=== PATIENT | male | born 1950 | race Caucasian/White ===

== ENCOUNTER → 2021-07-31 13:53 | Outpatient (BNVA) | payer MEDICARE, OTHER, SELFPAY | PROVIDERS: Family Provider Internal Medicine; PCP Internal Medicine; Visit Provider Urology | DX: R39.198 Other difficulties with micturition (principal); R97.20 Elevated prostate specific antigen [PSA]; F17.210 Nicotine dependence, cigarettes, uncomplicated | CPT/HCPCS: 81003; 84153 ==

== ENCOUNTER → 2021-08-24 12:15 | Outpatient (BNVA) | payer MEDICARE, OTHER, SELFPAY | PROVIDERS: Family Provider Internal Medicine; PCP Internal Medicine; Visit Provider Urology | DX: R97.20 Elevated prostate specific antigen [PSA] (principal) | CPT/HCPCS: 88305 ==

== ENCOUNTER → 2021-12-20 08:32 | Outpatient (BNVA) | payer MEDICARE, OTHER, SELFPAY | PROVIDERS: Family Provider Internal Medicine; PCP Internal Medicine; Visit Provider Urology | DX: R97.20 Elevated prostate specific antigen [PSA] (principal); N52.9 Male erectile dysfunction, unspecified | CPT/HCPCS: 81003; 84153 ==

== ENCOUNTER 2022-06-05 03:39 | Inpatient (IN) | payer MEDICARE, OTHER, SELFPAY ==
[2022-06-05] VITALS (8 sets, daily range): BP systolic 107–192; BP diastolic 61–89; PULSE 62–89; RESP 15–18; TEMP 36.4–36.9; O2SAT 95–98; BMI 26.4
--- NOTE | 2022-06-05 03:59 | XRR_ITS ---
PROCEDURE INFORMATION: Exam: XR Chest Exam date and time: 06/05/2022 4:04 AM Age: 72 years old Clinical indication: Patient HX: Epigastric pain x several months; Additional info: Abd pain TECHNIQUE: Imaging protocol: Radiologic exam of the chest. Views: 1 view. COMPARISON: No relevant prior studies available. FINDINGS: Lungs: The lung parenchyma is clear. Pleural spaces: No pneumothorax. No pleural effusion. Heart/Mediastinum: The cardiomediastinal silhouette is within normal limits. Bones/joints: Unremarkable. XR/XR chest 1V portable [id number] IMPRESSION: No acute cardiopulmonary abnormality.
--- NOTE | 2022-06-05 03:59 | USR_ITS ---
PROCEDURE INFORMATION: Exam: US Abdomen, Limited; Right Upper Quadrant Exam date and time: 06/05/2022 4:49 AM Age: 72 years old Clinical indication: Abdominal pain; Patient HX: Acute, sharp ruq pain x 3 months, ; additional info: Abd pain TECHNIQUE: Imaging protocol: Real time ultrasound of the abdomen with image documentation. Limited exam focused on the right upper quadrant. COMPARISON: RF FL barium enema w air* [id number] 10/25/2015 11:43 AM FINDINGS: Liver: Echogenic heterogenous parenchyma in the liver. No intrahepatic biliary dilatation. Gallbladder: Mobile echogenic, posterior acoustic shadowing gallstones measuring up to 1 cm noted. The gallbladder wall is thickened measuring up to 7 mm. Positive sonographic Leo sign. No significant pericholecystic fluid. Biliary ducts: The common bile duct is within normal limits measuring up to 6 mm in diameter. Pancreas: Partially visualized pancreas is unremarkable. Right kidney: Fluid density simple appearing cyst in the inferior pole the right kidney. Aorta: The aorta is nonaneurysmal. Portal venous: Normal hepatopetal flow in the portal vein. US/US gall bladder [id number] IMPRESSION: 1. Cholelithiasis with evidence of acute cholecystitis. 2. Hepatic steatosis.
--- NOTE | 2022-06-05 04:02 | ECG_ITS ---
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 Measurements Intervals [place] Rate: 81 P: 27 ND: 224 QRS: -25 QRSD: 99 T: 52 QT: 377 QTc: 440 Interpretive Statements SINUS RHYTHM WITH FIRST DEGREE AV BLOCK BORDERLINE LEFT AXIS DEVIATION [QRS AXIS < -20] LOW QRS VOLTAGE IN PRECORDIAL LEADS [QRS DEFLECTION < 1.0 mV IN CHEST LEADS] PATTERN CONSISTENT WITH PULMONARY DISEASE INCOMPLETE RIGHT BUNDLE BRANCH BLOCK [90+ ms QRS DURATION, TERMINAL R IN V1/V2, 40+ ms S IN I/aVL/V4/V5/V6] No previous ECG available for comparison Electronically Signed On 06-05-2022 14:11:20 CDT by Kenney Ambrocio M.D. [id number]
[2022-06-05 04:06] LABS: Basophils # 0.1 10^3/uL (0.0-0.1); Basophils % 0.6 %; Eosinophils # 0.1 10^3/uL (0.0-0.8); Eosinophils % 0.7 %; Hematocrit 48.5 % (42.0-52.0); Hemoglobin 16.3 g/dL (11.7-16.6); Lymphocytes # 1.8 10^3/uL (0.8-4.8); Lymphocytes % 20.2 %; Mean Corpuscular HGB Conc 33.6 g/dL (30.0-36.0); Mean Corpuscular Hemoglobin 31.5 pg (28.0-34.0); Mean Corpuscular Volume 93.8 fl (80-94); Mean Platelet Volume 10.1 fL (7.4-10.4); Monocytes # 0.5 10^3/uL (0.2-0.9); Monocytes % 5.8 %; Neutrophils # 6.29 10^3/uL (1.8-7.7); Neutrophils % 72.4 %; Nucleated Red Blood Cells % 0 %; Platelet Count 235 10^3/cmm (130-400); Red Blood Count 5.17 10^6/uL (4.1-5.3); White Blood Count 8.7 10^3/uL (4.0-10.0)
--- NOTE | 2022-06-05 04:13 | W.ED.ABDPA2 ---
HPI - Abdominal Pain General: Chief Complaint: Abdominal Pain Stated Complaint: upper abd pain Time Seen by Provider: 06/05/22 03:55 Source: patient Mode of arrival: ambulatory Limitations: no limitations History of Present Illness: 72-year-old male who states he has been having epigastric along with right upper quadrant pain he states for months with much worse since Friday. He states Friday night he had severe pain with vomiting states he ate tonight late start having some epigastric pain again he states it does radiate into his chest denies any fever he states that his pain has improved his pain is currently a 3 out of 10 denies any diarrhea. Associated Symptoms: Reports nausea and vomiting; Denies chills, dysuria and fever(s) Review of Systems Const: Denies: fever(s), chills, body aches or change in appetite Eyes: Denies: blurry vision or eye discomfort ENMT: Denies: throat pain or dental pain Card: Denies: chest pain Resp: Denies: dyspnea GI: Reports: abdominal pain, nausea and vomiting : Denies: dysuria Musc: Denies: neck pain or back pain Skin/Breast: Denies: rash Neuro: Denies: headache(s) Psych: Denies: depression Darius/Lymph: Denies: easy bruising All/Imm: Denies: urticaria PFSH ED PFSH: Medical History Elevated PSA Family History Mother Healthy adult Father , AT AGE 42 Automobile accident Social History Smoking and tobacco status: current every day smoker Alcohol intake: never Marital status: Current occupational status: retired History of recent travel: No Physical Exam Const: COMMON NORMALS: no acute distress, patient oriented x3 and healthy appearing HENMT: COMMON NORMALS: normocephalic and atraumatic HEAD & SCALP: normocephalic and atraumatic Eye: COMMON NORMALS: Equal, round and reactive pupils present and EOMs intact bilaterally PUPIL: Yes Equal, round and reactive pupils present Neck/C-Spine: COMMON NORMALS: full ROM and supple Chest: COMMONS NORMALS: normal inspection of the chest and normal palpation of entire chest wall Resp: COMMON NORMALS: normal respiratory effort, No retractions, No use of accessory muscles and clear to auscultation bilaterally AUSCULTATION: clear to auscultation bilaterally Cardio: COMMON NORMALS: regular rate, regular rhythm and No murmurs present (Cardio) RATE: regular rate RHYTHM: regular rhythm GI: COMMON NORMALS: Normal to inspection, nondistended, normoactive bowel sounds present, Soft to palpation and no masses PALPATION: Yes Soft to palpation and Yes Tenderness to palpation present (GI) Details: RUQ Extremity: COMMON NORMALS: normal to inspection and full ROM Neuro: COMMON NORMALS: patient oriented x3, moves all extremities and no focal motor deficits Psych: COMMON NORMALS: mental status grossly normal, Normal thought process present and cooperative THOUGHT PROCESS: Normal thought process present Skin: COMMON NORMALS: no rashes or lesions noted and no wounds GENERAL SKIN EXAM: no rashes or lesions noted Course Vital Signs: Vital signs: Vital Signs Temperature 97.9 F 06/05/22 03:46 Pulse Rate 89 06/05/22 03:46 Respiratory Rate 18 06/05/22 03:46 Blood Pressure 192/89 06/05/22 03:46 Pulse Oximetry 98 06/05/22 03:46 Oxygen Delivery Me thod 06/05/22 03:46 MDM - Abdominal Pain Medical Decision Making Patient presents here with right upper quadrant abdominal pain he is tender to touch ultrasound shows gallstones with likely cholecystitis I spoke to surgeon we will start on IV antibiotics and admit at this time patient has been stable while here. Lab Data : 06/05/22 04:00 06/05/22 04:00 Labs/Radiology: Radiology Impressions Chest X-Ray 06/05/22 03:59 IMPRESSION: No acute cardiopulmonary abnormality. Laboratory Results WBC 8.7 10^3/uL (4.0-10.0) 06/05/22 04:00 RBC 5.17 10^6/uL (4.1-5.3) 06/05/22 04:00 Hgb 16.3 g/dL (11.7-16.6) 06/05/22 04:00 Hct 48.5 % (42.0-52.0) 06/05/22 04:00 MCV 93.8 fl (80-94) 06/05/22 04:00 MCH 31.5 pg (28.0-34.0) 06/05/22 04:00 MCHC 33.6 g/dL (30.0-36.0) 06/05/22 04:00 RDW 12.0 % (12.1-15.1) L 06/05/22 04:00 Plt Count 235 10^3/cmm (130-400) 06/05/22 04:00 MPV 10.1 fL (7.4-10.4) 06/05/22 04:00 Neut % (Auto) 72.4 % 06/05/22 04:00 Lymph % (Auto) 20.2 % 06/05/22 04:00 Orange % (Auto) 5.8 % 06/05/22 04:00 Eos % (Auto) 0.7 % 06/05/22 04:00 Baso % (Auto) 0.6 % 06/05/22 04:00 Neut # (Auto) 6.29 10^3/uL (1.8-7.7) 06/05/22 04:00 Lymph # (Auto) 1.8 10^3/uL (0.8-4.8) 06/05/22 04:00 [place] # (Auto) 0.5 10^3/uL (0.2-0.9) 06/05/22 04:00 Eos # (Auto) 0.1 10^3/uL (0.0-0.8) 06/05/22 04:00 Baso # (Auto) 0.1 10^3/uL (0.0-0.1) 06/05/22 04:00 Nucleated RBC % (auto) 0 % 06/05/22 04:00 Nucleated RBCs # 0.0 /100WBC 06/05/22 04:00 Sodium 141 mmol/L (136-145) 06/05/22 04:00 Potassium 3.8 mmol/L (3.5-5.1) 06/05/22 04:00 Chloride 101 mmol/L (98-107) 06/05/22 04:00 Carbon Dioxide 27 mmol/L (22-29) 06/05/22 04:00 Anion Gap 16.8 (5-19) 06/05/22 04:00 BUN 9 mg/dL (8-23) 06/05/22 04:00 Creatinine 1.1 mg/dL (0.7-1.2) 06/05/22 04:00 GFR Calculation Not Reportable 06/05/22 04:00 Glucose 129 mg/dL (65-115) H 06/05/22 04:00 Calculated Osmolality 292 mOsm/kg (285-295) 06/05/22 04:00 Calcium 9.4 mg/dL (8.5-10.5) 06/05/22 04:00 Total Bilirubin 0.5 mg/dL (0.15-1.2) 06/05/22 04:00 AST 21 U/L (0-40) 06/05/22 04:00 ALT 19 U/L (0-41) 06/05/22 04:00 Alkaline Phosphatase 77 U/L (40-130) 06/05/22 04:00 Troponin T Baseline 16 ng/L (0-15) H 06/05/22 04:10 Total Protein 7.6 g/dL (6.6-8.7) 06/05/22 04:00 Albumin 4.6 g/dL (3.5-5.2) 06/05/22 04:00 Globulin 3.0 g/dL (1.3-4.6) 06/05/22 04:00 Lipase 93 U/L (13-60) H 06/05/22 04:00 EKG Data EKG 1: I personally reviewed and interpreted this EKG as follows: EKG interpretation date: 06/05/22 EKG interpretation time: 04:02 Interpretation: nsr hr [address] or t wve abnormalities qrs 99q tc 415 Discharge Plan Discharge Patient Disposition: Admitted As Inpatient Clinical Impression: Cholecystitis Condition: Stable Coding Level of Care Code ED Tool Machine Set Up Operator for Chg Fwd Exam Comprehensive
[2022-06-05] MEDS: lactated ringers 1,000 ML 999 ML IV (04:16)
[2022-06-05] MEDS: ondansetron 2 mg/ML SDV 2 mL 4 MG IVP ×2 (04:16→10:27)
[2022-06-05] MEDS: lidocaine 2% viscous 15 ML, aluminum-mag hydrox-simethicon 30 ML, sucralfate oral liq 1 GM PO (04:16)
[2022-06-05 04:28] LABS: Alanine Aminotransferase 19 U/L (0-41); Albumin Level 4.6 g/dL (3.5-5.2); Alkaline Phosphatase 77 U/L (40-130); Anion Gap 16.8 (5-19); Aspartate Amino Transferase 21 U/L (0-40); Blood Urea Nitrogen 9 mg/dL (8-23); Calcium 9.4 mg/dL (8.5-10.5); Carbon Dioxide 27 mmol/L (22-29); Chloride 101 mmol/L (98-107); Glucose 129 mg/dL (65-115); Lipase 93 U/L (13-60); Osmolality Calculated 292 mOsm/kg (285-295); Potassium 3.8 mmol/L (3.5-5.1); Sodium 141 mmol/L (136-145); Total Bilirubin 0.5 mg/dL (0.15-1.2); Total Protein 7.6 g/dL (6.6-8.7)
[2022-06-05 04:49] LABS: Troponin(5th) Baseline 16 ng/L (0-15)
--- NOTE | 2022-06-05 05:38 | ECG_ITS ---
[facility] Test Date: 2022-06-05 Pat Name: Maxwell Morris Department: Room: 266 Gender: Male Office Secretary: : 1950 Requested By: Maureen Toney Order Number: [id number] Demetrius MD: Kenney Ambrocio M.D. Measurements Intervals [place] Rate: 77 P: 41 SD: 219 QRS: -31 QRSD: 100 T: 40 QT: 392 QTc: 446 Interpretive Statements SINUS RHYTHM WITH FIRST DEGREE AV BLOCK LEFT AXIS DEVIATION [QRS AXIS < -30] LOW QRS VOLTAGE IN PRECORDIAL LEADS [QRS DEFLECTION < 1.0 mV IN CHEST LEADS] PATTERN CONSISTENT WITH PULMONARY DISEASE INCOMPLETE RIGHT BUNDLE BRANCH BLOCK [90+ ms QRS DURATION, TERMINAL R IN V1/V2, 40+ ms S IN I/aVL/V4/V5/V6] Compared to ECG 06/05/2022 04:02:33 No significant changes Electronically Signed On 06-05-2022 14:12:44 CDT by Kenney Ambrocio M.D. [id number]
[2022-06-05] MEDS: piperacillin-tazobactam 3.375 GM in sodium chloride 0.9% (plus) 50 ML IV (06:09)
[2022-06-05 06:11] LABS: Troponin 5 2HR 12.41 ng/L (0-15)
[2022-06-05 06:21] LABS: Troponin 5 2HR Delta -3.59 ABS# (0-10)
[2022-06-05] MEDS: sodium chloride 0.9% 1,000 ML 100 ML IV ×2 (06:33→16:54)
[2022-06-05] MEDS: pneumococcal (23 valent) SDV 0.5 mL IM (06:34)
--- NOTE | 2022-06-05 08:28 | PM.HP ---
Providers/Chief Complaint Admitting Physician: Franco Vazquez MD Primary Care Provider: Lázaro Hutchison DO Chief Complaint: upper abd pain History of Present Illness Maxwell Morris is a 72 year old male who presented to the hospital with a 3-day history of acute epigastric and right upper quadrant abdominal pain. He reports that this is his fourth attack in the last 3 months. He reports nausea and vomiting but denies hematemesis. Eating can make the pain worse. Narcotics seem to make the pain better. The pain does not radiate to his back. He denies any fever or chills. An ultrasound of the gallbladder is consistent with acute cholecystitis Review of Systems General: Reports: 10 or more systems reviewed and unremarkable except in HPI and below Medications/Allergies Home Medications Medication Instructions Recorded Confirmed Last Taken Type cholecalciferol (vitamin D3) 50 50 mcg PO DAILY PRN unknown 07/16/21 06/05/22 Unknown History mcg (2,000 unit) capsule tamsulosin 0.4 mg capsule 0.4 mg PO BEDTIME 07/16/21 06/05/22 Unknown History aspirin 325 mg tablet 81 mg PO QAM 07/31/21 06/05/22 Unknown History multivitamin 1 tab PO QAM 07/31/21 06/05/22 Unknown History tadalafil 20 mg tablet 20 mg PO DAILY PRN sexual activity 12/20/21 06/05/22 Unknown Rx #20 tabs baclofen 5 mg tablet 5 - 10 mg PO BID PRN Muscle Pain 06/05/22 06/05/22 Unknown History zinc 50 mg tablet 50 mg PO EVERY OTHER DAY 06/05/22 06/05/22 Unknown History Allergies Allergy/AdvReac Type Severity Reaction Status Date / Time No Known Allergies Allergy Verified 06/05/22 09:22 PFSH Acute PFSH: Medical History (Updated 06/05/22 @ 22:18 by Raymundo Cheng DO) Elevated PSA Skin lesion LOCAL EXCISION Surgical History (Updated 06/05/22 @ 22:18 by Raymundo Cheng DO) Status post carotid surgery 2 STENTS AT [facility] IN 10/2010 Family History Mother Healthy adult Father , AT AGE 42 Automobile accident Social History Smoking and tobacco status: current every day smoker Alcohol intake: never Marital status: Current occupational status: retired History of recent travel: No Vitals/I&O/Wt Last Vital Signs Temp 98.2 F 06/05/22 20:00 Pulse 69 06/05/22 20:00 Resp 17 06/05/22 20:00 BP 107/61 06/05/22 20:00 Pulse Ox 95 06/05/22 20:00 O2 Del Method 06/05/22 20:00 06/05/22 06/05/22 06/05/22 06:59 14:59 22:59 Intake Total 1050 / 1050 480 / 480 1480 / 1960 Balance 1050 / 1050 480 / 480 1480 / 1960 Weight last 48 hrs Weight 200 lb Physical Exam Narrative: General : Patient is well developed , no acute distress, oriented x3 Head : Normal cephalic, a-traumatic. Ears : Pinnae and external canal are normal. Hearing is normal. Eyes : PERRLA, Sclera and injection are normal. No conjunctival discharge. Nose : Mucous membranes are without erythema. Throat : buccal mucosa is normal, gums are without significant recession or hypertrophy. Lungs : Equal chest rise bilaterally, no use of accessory muscles, trachea is midline. Cor : Rate and rhythm are normal. Abdomen : Soft, ND, mild epigastric and RUQ tenderness, negative Leo's, no g/r/m Extremities : No edema, no cyanosis or clubbing, dorsalis pedis pulses are present bilaterally, non-tender to palpation of calves. Upper extremities are normal bilaterally. Back : non-tender to palpation, no CVA tenderness. Neuro : CN II - XII intact, Upper and lower extremities have equal and full strength Data : 06/05/22 04:00 06/05/22 04:00 A&P Assessment and plan (1) Acute calculous cholecystitis: Plan IV antibiotics Clear liquid diet N.p.o. after midnight Pain control A.m. labs Due to the acute on chronic nature of his cholecystitis, I am going to try antibiotic therapy and outpatient cholecystectomy in 6 weeks. If his symptoms worsen he will need cholecystectomy tomorrow. Attestations Medical Necessity Statement*: patient requires IV antibitiocs and repeat assessment for possible cholecystectomy Coding Level of Care Code Acute Print Line Supervisor for [facility] [place] Diagnoses Acute calculous cholecystitis K80.00
[2022-06-05] MEDS: morphine 4 mg/mL SDV 1 mL IVP (10:18)
[2022-06-05 11:04] LABS: Troponin 5 6HR 14.01 ng/L (0-15)
[2022-06-05 12:04] LABS: Troponin 5 6HR Delta -1.99 ng/L (0-12)
[2022-06-06] MEDS: piperacillin-tazobactam 3.375 GM in sodium chloride 0.9% (plus) 50 ML IV ×2 (01:21→09:41)
[2022-06-06] MEDS: sodium chloride 0.9% 1,000 ML 125 ML IV (03:00)
[2022-06-06 04:00] VITALS: BP 101/54; PULSE 65; RESP 17; TEMP 36.6; O2SAT 93
[2022-06-06 04:59] LABS: Basophils % 0.5 %; Eosinophils # 0.1 10^3/uL (0.0-0.8); Eosinophils % 2.2 %; Hematocrit 40.5 % (42.0-52.0); Hemoglobin 13.2 g/dL (11.7-16.6); Lymphocytes % 32.7 %; Mean Corpuscular HGB Conc 32.6 g/dL (30.0-36.0); Mean Corpuscular Hemoglobin 31.5 pg (28.0-34.0); Mean Corpuscular Volume 96.7 fl (80-94); Monocytes # 0.5 10^3/uL (0.2-0.9); Monocytes % 8.3 %; Neutrophils # 3.35 10^3/uL (1.8-7.7); Neutrophils % 55.8 %; Nucleated Red Blood Cells % 0 %; Platelet Count 179 10^3/cmm (130-400); Red Blood Count 4.19 10^6/uL (4.1-5.3); Red Cell Distribution Width 12.4 % (12.1-15.1)
[2022-06-06 05:24] LABS: Alanine Aminotransferase 17 U/L (0-41); Albumin Level 3.4 g/dL (3.5-5.2); Alkaline Phosphatase 60 U/L (40-130); Aspartate Amino Transferase 16 U/L (0-40); Blood Urea Nitrogen 7 mg/dL (8-23); Calcium 8.4 mg/dL (8.5-10.5); Carbon Dioxide 27 mmol/L (22-29); Chloride 104 mmol/L (98-107); Globulin 2.1 g/dL (1.3-4.6); Glucose 95 mg/dL (65-115); Osmolality Calculated 286 mOsm/kg (285-295); Sodium 139 mmol/L (136-145); Total Bilirubin 0.8 mg/dL (0.15-1.2); Total Protein 5.5 g/dL (6.6-8.7)
[2022-06-06 08:00] VITALS: BP 102/53; PULSE 65; RESP 16; TEMP 36.5; O2SAT 95
--- NOTE | 2022-06-06 10:40 | PC.CHAP ---
Pastoral Care Encounter/Spiritual Assessment Type of Contact [] Declined barrel marker visit [] Patient/Family/Request visit [] Outpatient visit [] Follow-up visit [] Physician referral [] Code/Alert [x] Routine visit [] Staff referral [] Actively dying [] Patient sleeping [] Family support [] [] Out of room [] Palliative care [] [x] Receiving care in room [] Pre-surgical visit [] Trauma [] Long length of stay [] ICU visit [] Other: Relational/Emotional Strength [x] Patient feels connected with others/family/visitors/staff [] Distress [] Loneliness/isolation [] Abandonment Spirituality of Patient [x] Person of Salma [] Attends Jew of their Salma [x] Believes in Prayer [] Reads Bible or Scientologist materials [] There are Spiritual issues to be addressed Gm/[employer] Interventions [x] Prayer [x] Active listening [x] Non-anxious presence [x] Spiritual/emotional support [] Crisis/trauma care [x] Spiritual counseling [] Bereavement support [] Provided bereavement packet [] Provided Bible/devotional materials [] Provided toy/stuffed animal, coloring book to patient or family member [] Provided Communion [] Anointing/Shanks [] Salvation [x] Completed spiritual assessment [] Other: Impact on Illness or Injury [] Angry [] Fearful [x] Anxious [] Often cries [] Exhaustion [] Unable to work [] Unable to attend scientologist [] Unable to walk/stand [] Unable to read [] Unable to drive [] Unable to eat/drink [] Unable to sleep [] Unable to be with family [] Patient intubated [] Other: Summary 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 Time spent with patient 10 mins
[2022-06-06 11:38] VITALS: BP 109/46; PULSE 58; RESP 16; TEMP 36.6; O2SAT 94
--- NOTE | 2022-06-06 13:06 | P.DS_ITS ---
Discharge Providers Date of Admission: 06/05/22 20:42 Date of Discharge: June 06, 2022 Attending Provider at Admission: Franco Vazquez MD Attending Provider at Discharge: Raymundo Cheng DO Primary Care Provider: Lázaro Hutchison DO Diagnoses at Discharge Discharge Diagnosis (1) Acute calculous cholecystitis: Status: Acute Reason for Visit Reason for Visit: upper abd pain Hospital Course Hospital Course This is a very pleasant 72-year-old gentleman who came in with epigastric and right upper quadrant pain. He was diagnosed with acute on chronic calculus cholecystitis. He responded well to antibiotic therapy and was tolerating a diet without pain. He was discharged home on antibiotics. He will complete a course of antibiotics and undergo an outpatient cholecystectomy in 6 weeks. Physical Exam Narrative: General : Patient is well developed , no acute distress, oriented x3 Head : Normal cephalic, a-traumatic. Ears : Pinnae and external canal are normal. Hearing is normal. Eyes : PERRLA, Sclera and injection are normal. No conjunctival discharge. Nose : Mucous membranes are without erythema. Throat : buccal mucosa is normal, gums are without significant recession or hypertrophy. Lungs : Equal chest rise bilaterally, no use of accessory muscles, trachea is midline. Cor : Rate and rhythm are normal. Abdomen : Soft, ND, mild right upper quadrant tenderness, no g/r/m Extremities : No edema, no cyanosis or clubbing, dorsalis pedis pulses are present bilaterally, non-tender to palpation of calves. Upper extremities are normal bilaterally. Back : non-tender to palpation, no CVA tenderness. Neuro : CN II - XII intact, Upper and lower extremities have equal and full strength Discharge Data Studies Completed and Pending Completed Studies During Hospitalization Category Date Time Status XR chest 1V portable [id number] Stat Exams 06/05/22 03:59 Completed US gall bladder [id number] Stat Ultrasound 06/05/22 03:59 Completed Pending at discharge Category Date Time Status CBC Auto Diff [Complete Blood Count w/Auto] AM LABS Lab 06/07/22 04:00 Ordered CMP [Comprehensive Metabolic Panel] AM LABS Lab 06/07/22 04:00 Ordered Radiology Impressions Chest X-Ray 06/05/22 03:59 IMPRESSION: No acute cardiopulmonary abnormality. Gallbladder Ultrasound 06/05/22 03:59 IMPRESSION: 1. Cholelithiasis with evidence of acute cholecystitis. 2. Hepatic steatosis. Laboratory Results WBC 6.0 10^3/uL (4.0-10.0) 06/06/22 04:46 RBC 4.19 10^6/uL (4.1-5.3) 06/06/22 04:46 Hgb 13.2 g/dL (11.7-16.6) 06/06/22 04:46 Hct 40.5 % (42.0-52.0) L 06/06/22 04:46 MCV 96.7 fl (80-94) H 06/06/22 04:46 MCH 31.5 pg (28.0-34.0) 06/06/22 04:46 MCHC 32.6 g/dL (30.0-36.0) 06/06/22 04:46 RDW 12.4 % (12.1-15.1) 06/06/22 04:46 Plt Count 179 10^3/cmm (130-400) 06/06/22 04:46 MPV 10.0 fL (7.4-10.4) 06/06/22 04:46 Neut % (Auto) 55.8 % 06/06/22 04:46 Lymph % (Auto) 32.7 % 06/06/22 04:46 [place] % (Auto) 8.3 % 06/06/22 04:46 Eos % (Auto) 2.2 % 06/06/22 04:46 Baso % (Auto) 0.5 % 06/06/22 04:46 Neut # (Auto) 3.35 10^3/uL (1.8-7.7) 06/06/22 04:46 Lymph # (Auto) 2.0 10^3/uL (0.8-4.8) 06/06/22 04:46 [place] # (Auto) 0.5 10^3/uL (0.2-0.9) 06/06/22 04:46 Eos # (Auto) 0.1 10^3/uL (0.0-0.8) 06/06/22 04:46 Baso # (Auto) 0.0 10^3/uL (0.0-0.1) 06/06/22 04:46 Nucleated RBC % (auto) 0 % 06/06/22 04:46 Nucleated RBCs # 0.0 /100WBC 06/06/22 04:46 Sodium 139 mmol/L (136-145) 06/06/22 04:46 Potassium 4.0 mmol/L (3.5-5.1) 06/06/22 04:46 Chloride 104 mmol/L (98-107) 06/06/22 04:46 Carbon Dioxide 27 mmol/L (22-29) 06/06/22 04:46 Anion Gap 12.0 (5-19) 06/06/22 04:46 BUN 7 mg/dL (8-23) L 06/06/22 04:46 Creatinine 1.1 mg/dL (0.7-1.2) 06/06/22 04:46 GFR Calculation Not Reportable 06/06/22 04:46 Glucose 95 mg/dL (65-115) 06/06/22 04:46 Calculated Osmolality 286 mOsm/kg (285-295) 06/06/22 04:46 Calcium 8.4 mg/dL (8.5-10.5) L 06/06/22 04:46 Total Bilirubin 0.8 mg/dL (0.15-1.2) 06/06/22 04:46 AST 16 U/L (0-40) 06/06/22 04:46 ALT 17 U/L (0-41) 06/06/22 04:46 Alkaline Phosphatase 60 U/L (40-130) 06/06/22 04:46 Troponin T Baseline 16 ng/L (0-15) H 06/05/22 04:10 Troponin T 120 Minute 12.41 ng/L (0-15) 06/05/22 05:50 Delta Troponin T -3.59 ABS# (0-10) L 06/05/22 05:50 Troponin T Hi Sens 6Hr 14.01 ng/L (0-15) 06/05/22 10:12 Troponin T Hi Sens 6Hr Delta -1.99 ng/L (0-12) L 06/05/22 10:12 Total Protein 5.5 g/dL (6.6-8.7) L 06/06/22 04:46 Albumin 3.4 g/dL (3.5-5.2) L 06/06/22 04:46 Globulin 2.1 g/dL (1.3-4.6) 06/06/22 04:46 Lipase 93 U/L (13-60) H 06/05/22 04:00 Vitals Last Vital Signs Temp 97.8 F 06/06/22 11:38 Pulse 58 L 06/06/22 11:38 Resp 16 06/06/22 11:38 BP 109/46 06/06/22 11:38 Pulse Ox 94 06/06/22 11:38 O2 Del Method 06/06/22 11:38 Discharge Plan Discharge Patient Disposition: Home Condition: Stable Prescriptions: New amoxicillin-pot clavulanate 875-125 mg tablet 1 tab PO BID 13 Days Qty: 26 0RF hydrocodone-acetaminophen 7.5-325 mg tablet 1 tab PO Q8H PRN (Reason: pain) Qty: 10 0RF Continued tamsulosin 0.4 mg capsule 0.4 mg PO BEDTIME cholecalciferol (vitamin D3) 50 mcg (2,000 unit) capsule 50 mcg PO DAILY PRN (Reason: unknown) multivitamin Tablet 1 tab PO QAM tadalafil 20 mg tablet 20 mg PO DAILY PRN (Reason: sexual activity) Qty: 20 12RF Rx Instructions: administer approximately 30min before sexual activity; NO NITROGLYCERIN! zinc 50 mg Tablet 50 mg PO EVERY OTHER DAY baclofen 5 mg tablet 5 - 10 mg PO BID PRN (Reason: Muscle Pain) Held aspirin 325 mg tablet 81 mg PO QAM Hold Instructions: Resume on 06/09/22. Discharge Orders: Discharge Order (Routine); Ordered 06/06/22 Ordered By: Raymundo Cheng Referrals: Raymundo Cheng DO [Physician] - 2 weeks Lázaro Hutchison DO [Primary Care Provider] - 4-7 days Discharge Diet: Advance as tolerated Discharge Activity: Resume usual activity Patient Instructions: Opioid Safety Discharge Attestations Time Spent in Discharge Care*: less than 30 min Quality Metrics Clinical Quality Measures [ No reported AMI, CVA or VTE this stay] Coding Level of Care Code Acute Chg FW DC note Diagnoses Acute calculous cholecystitis K80.00
[2022-06-06 14:51] VITALS: BP 109/46; PULSE 58; RESP 16; TEMP 36.6; O2SAT 94
== END 2022-06-06 14:45 | disposition home or self-care (01) | DRG 446 ==
LOC: ER 05:27 → MEDSURG 05:39
PROVIDERS: Admitting Provider Internal Medicine; Emergency Provider Emergency Medicine; PCP Internal Medicine; Visit Provider Surgery
DX: K80.12 Calculus of gallbladder with acute and chronic cholecystitis without obstruction (principal); F17.200 Nicotine dependence, unspecified, uncomplicated; Z95.828 Presence of other vascular implants and grafts; Z79.82 Long term (current) use of aspirin
CPT/HCPCS: 36415; 71045; 76705; 80053; 83690; 84484; 85025; 90471; 90732; 93005; 96365; 96375; 99285; J2270; J2405; J2543; J7030

== ENCOUNTER → 2022-06-18 10:30 | Outpatient (BNVA) | payer MEDICARE, OTHER, SELFPAY | PROVIDERS: PCP Internal Medicine; Visit Provider Surgery | DX: Z09 Encounter for follow-up examination after completed treatment for conditions other than malignant neoplasm (principal); K80.00 Calculus of gallbladder with acute cholecystitis without obstruction | CPT/HCPCS: 99203 ==

== ENCOUNTER → 2022-06-20 14:11 | Outpatient (BNVA) | payer MEDICARE, OTHER, SELFPAY | PROVIDERS: PCP Internal Medicine; Visit Provider Urology | DX: R97.20 Elevated prostate specific antigen [PSA] (principal); R39.198 Other difficulties with micturition; N53.14 Retrograde ejaculation | CPT/HCPCS: 81003; 99213 ==

== ENCOUNTER 2022-07-18 06:15 | Day surgery (SDC) | payer MEDICARE, OTHER, SELFPAY ==
[2022-07-17 12:35] VITALS: BMI 25.7
[2022-07-18] VITALS (8 sets, daily range): BP systolic 134–165; BP diastolic 61–76; PULSE 77–88; RESP 15–21; TEMP 36.3–36.7; O2SAT 95–100
[2022-07-18] MEDS: sodium chloride 0.9% 1,000 ML 30 ML IV (06:54)
--- NOTE | 2022-07-18 07:02 | W.PM.OPSUD ---
Surgery/Procedure H&P Update DATE OF PROCEDURE: July 18, 2022 DATE H&P PERFORMED: 06/10/22 PREOP DIAGNOSIS: Cholecystitis PLANNED PROCEDURE: Operation Date: 07/18/22 07:00 Proposed Procedures p Laparoscopic Cholecystectomy 19142,K80.00(Not Applicable) - Raymundo Cheng DO
[2022-07-18] MEDS: ceFAZolin 2,000 MG in sodium chloride 0.9% (plus) 50 ML 100 MG IV (07:08)
--- NOTE | 2022-07-18 08:08 | P.OP_ITS ---
Operative Report Date of procedure: July 18, 2022 Pre-op diagnosis: Preop Diagnosis Cholecystitis Post-op diagnosis: same Procedure done: Laparoscopic cholecystectomy Specimens removed/disposition: Gallbladder Surgeon: Dr. Raymundo Cheng DO Anesthesia: General Estimated blood loss (mL): 5 Complications: None apparent Brief History: This is a very pleasant 72-year-old gentleman who came in with cholecystitis. Laparoscopic cholecystectomy was indicated. The risks and benefits were explained and documented. Procedure: Patient was wheeled into the operative room and placed on the OR table in a supine position. Abdomen was inspected prepped and draped in usual sterile fashion. Time-out was performed and all present were in agreement. A 15 blade scalp was used to make a stab incision in the left upper quadrant and intra- abdominal insufflation was achieved using a Veress needle. After localizing the tissue incisions were made and a 5 millimeter trocar was placed into the umbilicus as well as 2 in the right upper quadrant. A 12 millimeter trocar was placed in the epigastrium. Gallbladder was grasped and elevated. The triangle of Calot was carefully dissected using blunt dissection and electrocautery until the triangle of Calot clearly identified. The cystic duct was clipped proximally and double clipped distally. The duct was then ligated proximally. The cystic artery was doubly clipped and ligated. The gallbladder was then removed from the liver bed using electrocautery. The gallbladder was removed from the abdomen using an Endo-Catch bag through the epigastric incision. The liver bed was inspected and no bleeding was seen. The abdomen was irrigated and suctioned. All ports removed. Skin was washed and dried. Incisions were closed with 3-0 and 4-O Vicryl in a subcuticular interrupted fashion. Skin glue was applied. Patient tolerated the procedure well.
--- NOTE | 2022-07-18 08:19 | SUR.PHASEI ---
0812 PT TO PACU 5 AWAKES TO VOICE, WITH GOOD RESP NOTED, IV TO LT WRIST #20 WITH NS 300ML UP AT KVO RATE PER GRAVITY, MONITOR SR WITH NO ECTOPY NOTED, ABDOMEN SOFT WITH 4 TROCHAR SITES WITH SKIN GLUE D/I , BILAT SCDS ON. PT VERBALLY DENIES PAIN AND NAUSEA THEN QUICKLY BACK TO SLEEP.
--- NOTE | 2022-07-18 08:33 | SUR.PHASEI ---
PT SLEEPING WITH HOB AT 40 DEGREES , NO DISTRESS NOTED, ABDOMEN UNCHANGED.
--- NOTE | 2022-07-18 08:40 | P.ANESASSM_ITS ---
Pre-Anesthetic Assessment Height/Weight: Height 1.85 m Weight 88.451 kg Temp Pulse Resp BP Pulse Ox O2 Del Method O2 Flow Rate 97.3 F L 77 16 134/71 95 8 07/18/22 08:35 07/18/22 08:35 07/18/22 08:35 07/18/22 08:35 07/18/22 08:35 07/18/22 08:35 07/18/22 08:20 Preop Diagnosis: Cholecystitis Operation Date: 07/18/22 07:00 Proposed Procedures p Laparoscopic Cholecystectomy 68346,K80.00(Not Applicable) - Raymundo Cheng DO Familial anesthetic complications: none Was Beta Deana taken within 24 hours: N/A Was Clonidine taken within 24 hours: N/A Last intake: Intake Last Liquid Date 07/17/22 Last Liquid Time 23:55 Last Solid Date 07/17/22 Last Solid Time 20:00 Social Tobacco and No alcohol Exam alert, oriented x 3 and regular rate & rhythm Airway Submandibular: within normal limits Cervical ROM: within normal limits Mallampati: Class II Dentition: chipped Pulmonary Chronic Obstructive Pulmonary Disease CV/HEM Coronary Artery Disease (stents) Anesthetic Plan ASA status: 2 Anesthesia: General Medications/Allergies Home Medications Medication Instructions Recorded Confirmed Last Taken Type cholecalciferol (vitamin D3) 50 50 mcg PO DAILY 07/16/21 07/18/22 Unknown History mcg (2,000 unit) capsule aspirin 325 mg tablet 81 mg PO QAM 07/31/21 07/18/22 07/17/22 History multivitamin 1 tab PO QAM 07/31/21 07/18/22 07/17/22 History baclofen 5 mg tablet 5 - 10 mg PO BID PRN Muscle Pain 06/05/22 07/18/22 Unknown History zinc 50 mg tablet 50 mg PO EVERY OTHER DAY 06/05/22 07/17/22 Unknown History hydrocodone 7.5 mg-acetaminophen 1 tab PO Q8H PRN pain #10 tabs 06/06/22 07/17/22 Unknown Rx 325 mg tablet alfuzosin 10 mg tablet,extended 10 mg PO DAILY 07/17/22 07/18/22 07/17/22 History release 24 hr tadalafil 20 mg tablet (Cialis) 20 mg PO DAILY PRN sexual activity 07/17/22 07/17/22 Unknown History Allergies Allergy/AdvReac Type Severity Reaction Status Date / Time No Known Allergies Allergy Verified 07/17/22 12:32 Current Medications Generic Name Dose Route Start Last Admin Trade Name Giovanni PRN Reason Stop Dose Admin Sodium Chloride 1,000 mls @ 30 mls/hr 07/18/22 06:30 07/18/22 06:54 Sodium Chloride 0.9% IV 07/19/22 06:29 30 mls/hr .Q24H ROHITH Administration PFSH Anesthesia Medical History Elevated PSA Skin lesion LOCAL EXCISION Surgical History Status post carotid surgery 2 STENTS AT [facility] IN 10/2010 Family History Mother Healthy adult Father , AT AGE 42 Automobile accident Social History Smoking and tobacco status: current every day smoker Alcohol intake: never Marital status: Current occupational status: retired History of recent travel: No Data Anesthesia Cardiac Studies: No Data to Display
[2022-07-18] MEDS: HYDROcodone-acetaminophen 7.5-325 mg Tablet 1 TAB PO (09:06)
--- NOTE | 2022-07-18 15:37 | ANE.PACU2 ---
Inpatient post-anesthesia follow up: Airway intact: Yes Vital signs: Temperature 97.3 F Pulse Rate 84 Respiratory Rate 18 Blood Pressure 134/61 Pulse Oximetry 95 Oxygen Delivery Me thod Room Air Oxygen Flow Rate 8 Fraction of Inspir ed Oxygen Hydration adequate: Yes Nausea and vomiting: No Pain level: 2 Mental status: Baseline
== END 2022-07-18 09:20 | disposition home or self-care (01) ==
PROVIDERS: PCP Internal Medicine; Visit Provider Surgery
PROC: 0FT44ZZ Resection of Gallbladder, Percutaneous Endoscopic Approach (ICD-10-PCS; CPT 47562; principal; 2022-07-18 07:00)
DX: K80.10 Calculus of gallbladder with chronic cholecystitis without obstruction (principal); J44.9 Chronic obstructive pulmonary disease, unspecified; I25.10 Atherosclerotic heart disease of native coronary artery without angina pectoris; Z95.5 Presence of coronary angioplasty implant and graft; Z79.82 Long term (current) use of aspirin; F17.210 Nicotine dependence, cigarettes, uncomplicated
CPT/HCPCS: 47562; 88304; J0690; J2370; J2704; J2710; J3010; J7030

== ENCOUNTER → 2022-07-30 11:09 | Outpatient (BNVA) | payer MEDICARE, OTHER, SELFPAY | PROVIDERS: PCP Internal Medicine; Visit Provider Surgery | DX: Z98.890 Other specified postprocedural states (principal); Z90.49 Acquired absence of other specified parts of digestive tract | CPT/HCPCS: 99024 ==

== ENCOUNTER 2022-12-23 09:43 | Outpatient (CLI) | payer MEDICARE, SELFPAY | END 2022-12-23 09:44 | disposition home or self-care (01) | LOC: LAB 09:47 | PROVIDERS: PCP Internal Medicine; Visit Provider Urology | DX: R97.20 Elevated prostate specific antigen [PSA] (principal) | CPT/HCPCS: 36415; 84153 ==

== ENCOUNTER → 2022-12-24 13:58 | Outpatient (BNVA) | payer MEDICARE, OTHER, SELFPAY | PROVIDERS: PCP Internal Medicine; Visit Provider Urology | DX: N40.1 Benign prostatic hyperplasia with lower urinary tract symptoms (principal); R97.20 Elevated prostate specific antigen [PSA]; R39.198 Other difficulties with micturition; N53.14 Retrograde ejaculation | CPT/HCPCS: 51798; 81003; 99213 ==

== ENCOUNTER 2024-02-20 08:45 | Outpatient (CLI) | payer MEDICARE, OTHER, SELFPAY | END 2024-02-20 08:46 | disposition home or self-care (01) | PROVIDERS: PCP Internal Medicine; Visit Provider Urology | DX: R97.20 Elevated prostate specific antigen [PSA] (principal) | CPT/HCPCS: 84153 ==

== ENCOUNTER 2024-08-27 21:23 | Emergency (ER) | payer MEDICARE, OTHER, SELFPAY ==
[2024-08-27 21:26] VITALS: BP 152/66; PULSE 96; RESP 20; TEMP 36.7; O2SAT 96; BMI 24.4
--- NOTE | 2024-08-27 21:37 | XRR_ITS ---
PROCEDURE INFORMATION: Exam: XR Chest Exam date and time: 08/27/2024 10:34 PM Age: 74 years old Clinical indication: Chest pressure; Patient HX: Chest pain; Cough; Congestion TECHNIQUE: Imaging protocol: Radiologic exam of the chest. Views: 1 view. COMPARISON: CR XR chest 1V portable [id number] 06/05/2022 4:04 AM FINDINGS: Lungs: Mildly increased peribronchial markings present and some subtle increased interstitial opacities also noted in the mid and lower thoraces. Although this could represent mild bronchitis and interstitial pneumonitis, there may be a background mild pulmonary edema as well. Pleural spaces: Left hemidiaphragm is obscured likely secondary to moderate left pleural effusion. There is a smaller right effusion seen blunting of the costophrenic recess. There are patchy opacity seen in the left mid and lower hemithorax likely representing superimposing atelectasis versus infiltrates and pneumonia. Heart/Mediastinum: Unremarkable. No cardiomegaly. Bones/joints: Unremarkable. XR/XR chest 1V portable [id number] IMPRESSION: 1. Bilateral pleural effusions, left larger than right. 2. Patchy opacities superimposed over the left pleural effusion, findings that may represent atelectasis although a left basilar pneumonia cannot be excluded. 3. There is mild peribronchial cuffing present and subtle increased interstitial opacities are seen in the mid and lower dana thoraces. Although this could represent bronchitis and pneumonitis, there may be a background mild pulmonary edema present.
--- NOTE | 2024-08-27 21:40 | ECG_ITS ---
[facility]: 2024-[facility]27 Pat Name: Maxwell Morris Department: Room: Gender: Male Road Advisor: : 1950 Requested By: Torito Sol Order Number: [id number] Demetrius MD: Kenney Ambrocio M.D. Measurements Intervals [place] Rate: 91 P: -66 SD: 181 QRS: 3 QRSD: 95 T: 50 QT: 350 QTc: 431 Interpretive Statements ECTOPIC ATRIAL RHYTHM INCOMPLETE RIGHT BUNDLE BRANCH BLOCK [90+ ms QRS DURATION, TERMINAL R IN V1/V2, 40+ ms S IN I/aVL/V4/V5/V6] ABNORMAL RHYTHM ECG Compared to ECG 06/05/2022 05:38:00 Ectopic atrial rhythm now present Sinus rhythm no longer present First degree AV block no longer present Left-axis deviation no longer present Electronically Signed On 08-30-2024 20:24:02 PAVING SUPERVISOR by Kenney Ambrocio M.D. [email or web address]
--- NOTE | 2024-08-27 22:36 | W.ED.URI ---
HPI - URI/Sore Throat General: Chief Complaint: Upper Respiratory Infection Stated Complaint: sinus coughing pain on left side Time Seen by Provider: 08/27/24 22:19 Source: patient Mode of arrival: ambulatory Limitations: no limitations History of Present Illness: Patient is a 74-year-old male who presents the emergency department complaining of right-sided chest pain greater than 2 weeks. Patient states he is a smoker and has a chronic cough, most recently the cough has started to cause pain to his right chest that radiates to his right shoulder. He has tried Tylenol and heat, does not seem to help. States the pain is so severe that he is afraid to cough. Denies any fever, nausea/vomiting, shortness of breath, or other concerning symptoms. He states he has not tried to take much because of interactions with his prostate medication. Vitals are stable at this time, breathing comfortably on room air. MD elicited complaint: other (Right sided musculoskeletal chest pain) Onset (ago): week(s) Consistency: constant Severity: severe Exacerbating factors: other (Coughing) Relieving factors: rest Associated symptoms: Reports chest pain (Right-sided, musculoskeletal); Deny abdominal pain, chills, diarrhea, ear or mastoid pain, fever(s), headache(s), nausea or vomiting Related Data Home Medications Medication Instructions Recorded Confirmed cholecalciferol (vitamin D3) 50 50 mcg PO DAILY 07/16/21 12/24/22 mcg (2,000 unit) capsule aspirin 325 mg tablet 81 mg PO QAM 07/31/21 12/24/22 multivitamin 1 tab PO QAM 07/31/21 12/24/22 baclofen 5 mg tablet 5 - 10 mg PO BID PRN Muscle Pain 06/05/22 12/24/22 zinc 50 mg tablet 50 mg PO EVERY OTHER DAY 06/05/22 12/24/22 alfuzosin 10 mg tablet,extended 10 mg PO DAILY 07/17/22 12/24/22 release 24 hr tadalafil 20 mg tablet (Cialis) 20 mg PO DAILY PRN sexual activity 07/17/22 12/24/22 Previous Rx's Medication Instructions Recorded hydrocodone 7.5 mg-acetaminophen 1 tab PO Q8H PRN pain #10 tabs 06/06/22 325 mg tablet benzonatate 100 mg capsule 100 mg PO BID PRN cough #20 caps 08/27/24 ketorolac 10 mg tablet 10 mg PO Q8H PRN pain #15 tabs 08/27/24 prednisone 20 mg tablet 40 mg (2 x 20 mg) PO ONCE 5 days 08/27/24 #10 tabs Allergies Allergy/AdvReac Type Severity Reaction Status Date / Time No Known Allergies Allergy Verified 12/24/22 14:08 Review of Systems General: Reports: 10 or more systems reviewed and unremarkable except in HPI and below Const: Denies: fever(s), chills or fatigue Eyes: Denies: change in vision ENMT: Denies: throat pain, ear or mastoid pain or nasal discharge Card: Reports: chest pain (Right-sided, musculoskeletal); Denies: palpitations, swelling of feet/ankles or lightheadedness Resp: Reports: non-productive cough; Denies: dyspnea or wheezing GI: Denies: abdominal pain, nausea, vomiting, diarrhea or constipation : Denies: flank pain, difficulty urinating, dysuria or urinary frequency Musc: Denies: neck pain, back pain or joint pain Skin/Breast: Denies: rash Neuro: Denies: headache(s), numbness in extremities or weakness in extremities PFSH ED PFSH: Medical History Skin lesion LOCAL EXCISION Elevated PSA Surgical History Hx laparoscopic cholecystectomy 07/18/22 Status post carotid surgery 2 STENTS AT [facility] IN 10/2010 Family History Mother Healthy adult Father , AT AGE 42 Automobile accident Social History Smoking and tobacco/nicotine status: current every day tobacco/nicotine user Alcohol intake: never Substance/Drug Use: never Marital status: Current occupational status: retired Physical Exam Const: COMMON NORMALS: no acute distress and no limitations GENERAL APPEARANCE: cooperative, comfortable and well developed ORIENTATION/CONSCIOUSNESS: Yes awake HENMT: COMMON NORMALS: normocephalic, atraumatic and hearing grossly normal bilaterally HEAD & SCALP: normocephalic and atraumatic Eye: COMMON NORMALS: Equal, round and reactive pupils present, EOMs intact bilaterally and conjunctivae normal CONJUNCTIVA: Yes conjunctivae normal PUPIL: Yes Equal, round and reactive pupils present Neck/C-Spine: COMMON NORMALS: full ROM, supple and no JVD Chest: OTHER: Reproducible tenderness to palpation to the right anterior chest wall, expanding towards the right axilla. No axillary lymphadenopathy. No palpable mass. No step-off deformity or signs of trauma. Resp: COMMON NORMALS: normal respiratory effort, No retractions, No use of accessory muscles and clear to auscultation bilaterally AUSCULTATION: clear to auscultation bilaterally Cardio: COMMON NORMALS: no JVD, regular rate, regular rhythm, No clicks present (Cardio), No murmurs present (Cardio) and No rub (Cardio) RATE: regular rate RHYTHM: regular rhythm GI: COMMON NORMALS: Normal to inspection, nondistended, normoactive bowel sounds present, Soft to palpation and non-tender AUSCULTATION: Yes normoactive bowel sounds PALPATION: Yes Soft to palpation RECTAL EXAM: Yes deferred Extremity: COMMON NORMALS: normal to inspection, full ROM and capillary refill normal Psych: COMMON NORMALS: mental status grossly normal and Normal thought process present THOUGHT PROCESS: Normal thought process present Skin: COMMON NORMALS: no rashes or lesions noted GENERAL SKIN EXAM: no rashes or lesions noted Course Vital Signs: Vital signs: Vital Signs Temperature 98.1 F 08/27/24 21:26 Pulse Rate 82 08/27/24 23:42 Respiratory Rate 16 08/27/24 23:42 Blood Pressure 134/53 08/27/24 23:42 Pulse Oximetry 97 08/27/24 23:42 Oxygen Delivery Me thod Room Air 08/27/24 21:26 MDM - URI/Sore Throat Medical Decision Making Patient presented with right anterior chest wall pain over the past couple of days, states it has been there for some time but it has just suddenly worsened after his chronic cough had increased. On exam it was easily reproducible to palpation, there was no axillary lymphadenopathy or palpable mass to the chest wall. Additionally there was no palpable rib fractures or step-off deformity/crepitus. His blood work was completely normal. Chest x-ray with multiple findings, however I do not believe that these are related to his chest wall pain. I did inform him that with his age and smoking history that he would benefit from a CT scan, states that he will do this with his primary care provider as he is feeling much better after receiving Decadron through an IV as well as Toradol. I do think that his pain is secondary to his coughing, likely a costochondritis. EKG also unremarkable. I do not feel this is cardiac in nature at this time however did instruct him that if he does start to have shortness of breath, if the pain worsens, or with any other concerning symptoms to return immediately to the emergency department for further evaluation. Patient and spouse in the room agreed with this plan and will be discharged home at this time. Lab Data 08/27/24 22:42 08/27/24 22:42 Radiology Impressions Chest X-Ray 08/27/24 21:37 IMPRESSION: 1. Bilateral pleural effusions, left larger than right. 2. Patchy opacities superimposed over the left pleural effusion, findings that may represent atelectasis although a left basilar pneumonia cannot be excluded. 3. There is mild peribronchial cuffing present and subtle increased interstitial opacities are seen in the mid and lower dana thoraces. Although this could represent bronchitis and pneumonitis, there may be a background mild pulmonary edema present. Laboratory Results WBC 7.34 10^3/uL (3.29-11.43) 08/27/24 22:42 RBC 4.70 10^6/uL (3.85-5.65) 08/27/24 22:42 Hgb 14.20 g/dL (11.27-16.99) 08/27/24 22:42 Hct 43.9 % (37-53) 08/27/24 22:42 MCV 93.4 fl (82-101) 08/27/24 22:42 MCH 30.2 pg (27-33) 08/27/24 22:42 MCHC 32.3 g/dL (30-55) 08/27/24 22:42 RDW 11.8 % (12.1-15.1) L 08/27/24 22:42 Plt Count 301 10^3/cmm (157-399) 08/27/24 22:42 MPV 9.3 fL (7.4-10.4) 08/27/24 22:42 Neut % (Auto) 73.3 % 08/27/24 22:42 Lymph % (Auto) 17.7 % 08/27/24 22:42 [place] % (Auto) 7.1 % 08/27/24 22:42 Eos % (Auto) 0.8 % 08/27/24 22:42 Baso % (Auto) 0.7 % 08/27/24 22:42 Neut # (Auto) 5.38 10^3/uL (1.8-7.7) 08/27/24 22:42 Lymph # (Auto) 1.3 10^3/uL (0.8-4.8) 08/27/24 22:42 [place] # (Auto) 0.5 10^3/uL (0.2-0.9) 08/27/24 22:42 Eos # (Auto) 0.1 10^3/uL (0.0-0.8) 08/27/24 22:42 Baso # (Auto) 0.1 10^3/uL (0.0-0.1) 08/27/24 22:42 Nucleated RBC % (auto) 0 % 08/27/24 22:42 Nucleated RBCs # 0.0 /100WBC 08/27/24 22:42 Sodium 141 mmol/L (136-145) 08/27/24 22:42 Potassium 3.9 mmol/L (3.5-5.1) 08/27/24 22:42 Chloride 104 mmol/L (98-107) 08/27/24 22:42 Carbon Dioxide 27 mmol/L (22-29) 08/27/24 22:42 Anion Gap 13.9 (5-19) 08/27/24 22:42 BUN 12 mg/dL (8-23) 08/27/24 22:42 Creatinine 0.9 mg/dL (0.7-1.2) 08/27/24 22:42 GFR Calculation Not Reportable 08/27/24 22:42 Glucose 109 mg/dL (65-115) 08/27/24 22:42 Calculated Osmolality 292 mOsm/kg (285-295) 08/27/24 22:42 Calcium 9.3 mg/dL (8.5-10.5) 08/27/24 22:42 Total Bilirubin 0.2 mg/dL (0.15-1.2) 08/27/24 22:42 AST 18 U/L (0-40) 08/27/24 22:42 ALT 18 U/L (0-41) 08/27/24 22:42 Alkaline Phosphatase 111 U/L (40-130) 08/27/24 22:42 Total Protein 6.8 g/dL (6.6-8.7) 08/27/24 22:42 Albumin 3.9 g/dL (3.5-5.2) 08/27/24 22:42 Globulin 2.9 g/dL (1.3-4.6) 08/27/24 22:42 All radiology interpretation(s) finalized by discharge Discharge Plan Discharge Patient Disposition: Home Clinical Impression: Acute costochondritis Condition: Stable Prescriptions: New prednisone 20 mg tablet 40 mg PO ONCE 5 Days Qty: 10 0RF benzonatate 100 mg capsule 100 mg PO BID PRN (Reason: cough) Qty: 20 0RF ketorolac 10 mg tablet 10 mg PO Q8H PRN (Reason: pain) Qty: 15 0RF No Action cholecalciferol (vitamin D3) 50 mcg (2,000 unit) capsule 50 mcg PO DAILY multivitamin Tablet 1 tab PO QAM aspirin 325 mg tablet 81 mg PO QAM Hold Instructions: Doctor's Order zinc 50 mg Tablet 50 mg PO EVERY OTHER DAY baclofen 5 mg tablet 5 - 10 mg PO BID PRN (Reason: Muscle Pain) hydrocodone-acetaminophen 7.5-325 mg tablet 1 tab PO Q8H PRN (Reason: pain) Qty: 10 0RF alfuzosin 10 mg tablet extended release 24 hr 10 mg PO DAILY Rx Instructions: TAKE 1 TABLET BY MOUTH DAILY Cialis 20 mg tablet 20 mg PO DAILY PRN (Reason: sexual activity) Rx Instructions: administer approximately 30min before sexual activity; NO NITROGLYCERIN! Discharge Orders: Discharge ED (Routine); Ordered 08/27/24 Ordered By: Samir Crow Referrals: Lázaro Hutchison DO [Primary Care Provider] - Patient Instructions: Costochondritis (ED) Activity Restrictions/Additional Instructions: Take medications as prescribed. Follow-up with your primary care provider as we discussed, to discuss your ED visit and potentially obtaining low-dose CT. Monitor your condition closely and return with any new or concerning symptoms that you have. You may also apply heat to the area. See attached patient instructions for further education. Coding Level of Care Code ED Scouring Train Operator for Samaria Mandel
[2024-08-27 22:54] LABS: Basophils # 0.1 10^3/uL (0.0-0.1); Basophils % 0.7 %; Eosinophils # 0.1 10^3/uL (0.0-0.8); Eosinophils % 0.8 %; Hematocrit 43.9 % (37-53); Lymphocytes # 1.3 10^3/uL (0.8-4.8); Lymphocytes % 17.7 %; Mean Corpuscular HGB Conc 32.3 g/dL (30-55); Mean Corpuscular Hemoglobin 30.2 pg (27-33); Mean Corpuscular Volume 93.4 fl (82-101); Mean Platelet Volume 9.3 fL (7.4-10.4); Monocytes # 0.5 10^3/uL (0.2-0.9); Monocytes % 7.1 %; Neutrophils # 5.38 10^3/uL (1.8-7.7); Neutrophils % 73.3 %; Nucleated Red Blood Cells % 0 %; Platelet Count 301 10^3/cmm (157-399); Red Cell Distribution Width 11.8 % (12.1-15.1); White Blood Count 7.34 10^3/uL (3.29-11.43)
[2024-08-27] MEDS: ketorolac 60 mg/2 mL INJ 30 MG IVP (23:02)
[2024-08-27] MEDS: dexamethasone 10 mg/mL INJ IVP (23:02)
[2024-08-27 23:10] LABS: Alanine Aminotransferase 18 U/L (0-41); Albumin Level 3.9 g/dL (3.5-5.2); Alkaline Phosphatase 111 U/L (40-130); Anion Gap 13.9 (5-19); Aspartate Amino Transferase 18 U/L (0-40); Blood Urea Nitrogen 12 mg/dL (8-23); Calcium 9.3 mg/dL (8.5-10.5); Carbon Dioxide 27 mmol/L (22-29); Chloride 104 mmol/L (98-107); Creatinine Clr Calc Pharmacy 81.7576; Globulin 2.9 g/dL (1.3-4.6); Glucose 109 mg/dL (65-115); Osmolality Calculated 292 mOsm/kg (285-295); Potassium 3.9 mmol/L (3.5-5.1); Sodium 141 mmol/L (136-145); Total Bilirubin 0.2 mg/dL (0.15-1.2); Total Protein 6.8 g/dL (6.6-8.7)
[2024-08-27 23:42] VITALS: BP 134/53; PULSE 82; RESP 16; O2SAT 97
== END 2024-08-27 23:40 | disposition home or self-care (01) ==
PROVIDERS: Emergency Provider Physician Assistant; PCP Internal Medicine
DX: M94.0 Chondrocostal junction syndrome [Tietze] (principal); Z72.0 Tobacco use
CPT/HCPCS: 36415; 71045; 80053; 85025; 93005; 96374; 96375; 99285; J1100; J1885

== ENCOUNTER 2024-09-28 14:43 | Outpatient (CLI) | payer MEDICARE, OTHER, SELFPAY ==
--- NOTE | 2024-09-28 14:49 | CT_ITS ---
WS: [id number] CTA OF THE CHEST WITH PULMONARY EMBOLISM PROTOCOL TECHNIQUE: High-resolution contrast enhanced CTA of the chest with coronal and sagittal reformatted i mages with pulmonary embolism protocol. MIP images are also reviewed. CLINICAL INFORMATION: Abnormal Coagulation Profile COMPARISON: None. DLP: 400.[address] scans at [facility] use at least one of these dose optimization techniques: automated e xposure control; mA and/or kV adjustment per patient size (includes targeted exams where dose is matc hed to clinical indication); or iterative reconstruction. FINDINGS: Proximal main pulmonary arteries are normal. No evidence of pulmonary embolus. Moderate to large LEFT pleural effusion. Compressive atelectasis with consolidation LEFT lower lobe and lingula. Bulky mediastinal peribronchial and subcarinal lymphadenopathy. LEFT greater than RIGHT hilar lymphadenopathy. Findings suspicious for neoplasm. Recommend bronchoscopy in further evaluation. Suspected LEFT hilar mass measuring 3.7 x 3.7 cm. Hazy infiltrates in the LEFT upper lobe. The RIGHT lung is well aerated. Slight RIGHT basilar atelectasis. Destructive expansile anterior RIGHT third rib lesion suspicious for metastasis. 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 LEFT to RIGHT moderate narrowing of the trachea th oracic inlet with LEFT RIGHT shift. Thyroid mass measures 5.8 x 4.6 cm. Associated peripheral calcifi cation. No axillary lymphadenopathy. Cholecystectomy clips. Partially evaluated bilateral adrenal nodules the largest on the RIGHT measuring 2.[address]/CT angio chest PE protcl [id number] IMPRESSION: 1. No evidence of pulmonary embolus. 2. Moderate to large LEFT pleural effusion. 3. Bulky mediastinal peribronchial and subcarinal lymphadenopathy. LEFT greate r than RIGHT hilar lymphadenopathy. 4. Compressive atelectasis with consolidation LEFT lower lobe and lingula. Fin dings suspicious for neoplasm. Recommend bronchoscopy further evaluation. Susp ected LEFT hilar mass measuring 3.7 x 3.7 cm. 5. Destructive expansile anterior RIGHT third rib lesion suspicious for metast asis 6. 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 Moderate narrowing of th e trachea at the thoracic inlet with LEFT to RIGHT shift. Thyroid mass measures 5.8 x 4.6 cm. 7. Partially evaluated bilateral adrenal nodules the largest on the RIGHT gayle uring 2.4 cm. Metastatic disease not excluded.
[2024-09-28] MEDS: iohexol 350 mg/mL 500 mL Btl (per mL) IV (15:25)
== END 2024-09-28 14:44 | disposition home or self-care (01) ==
LOC: RAD 14:45
PROVIDERS: PCP Internal Medicine; Visit Provider Family Medicine
DX: R79.1 Abnormal coagulation profile (principal); J90 Pleural effusion, not elsewhere classified; R59.1 Generalized enlarged lymph nodes; J98.11 Atelectasis; R93.89 Abnormal findings on diagnostic imaging of other specified body structures; E07.9 Disorder of thyroid, unspecified; R91.8 Other nonspecific abnormal finding of lung field; Z90.49 Acquired absence of other specified parts of digestive tract; E27.8 Other specified disorders of adrenal gland
CPT/HCPCS: 71275

== ENCOUNTER → 2024-10-01 07:25 | Day surgery (SDC) | payer MEDICARE, OTHER, SELFPAY ==
--- NOTE | 2024-10-01 07:40 | US_ITS ---
WS: [id number] ULTRASOUND-GUIDED THORACENTESIS CLINICAL INFORMATION: Plueral Effuison COMPARISON: Recent CTA reviewed. PROCEDURE: Informed consent: The risks, benefits, and alternatives of the procedure were discussed with the daniel ent. Verbal and written consent was obtained. Timeout: A timeout was performed to confirm the correct patient, procedure, and site. Site: LEFT chest Preparation: A suitable skin site was identified. The patient was prepped and draped in usual sterile fashion. Lidocaine 1% was used for local anesthesia. Catheter: 4 Nepali One-Step catheter. Fluid Volume: 1000 ml Color: Clear yellow 50 cc sent to the laboratory for analysis. Complications: None. Patient disposition: Discharged from the department in stable condition. / thoracentesis [id number] IMPRESSION: 1. Uncomplicated ultrasound-guided thoracentesis with removal of 1000 cc clear yellow pleural fluid. 2. No pneumothorax on the post thoracentesis radiograph 3. Pleural fluid sent to laboratory for requested diagnostic tests.
[2024-10-01 07:51] VITALS: BP 128/53; PULSE 105; RESP 18; TEMP 36.4; O2SAT 97; BMI 23.7
[2024-10-01 08:47] LABS: INR 1.01 (0.8-1.2)
--- NOTE | 2024-10-01 10:22 | XR_ITS ---
WS: [id number] CHEST XRAY TECHNIQUE: Portable chest. CLINICAL INFORMATION: post thoracentisis FINDINGS: Masslike enlargement of the LEFT thyroid with mass effect on the trachea described on the p rior CT. Heart: Cardiomegaly. Lungs: LEFT pleural effusion postthoracentesis. Improved aeration of the LEFT upper lobe. Persistent consolidation of the mid lung and LEFT lower lobe. RIGHT lung is well aerated. Bones: Normal visualized bony structures. XR/XR chest 1V portable [id number] IMPRESSION: No pneumothorax post LEFT thoracentesis. Persistent dense consolidation in the LEFT midlung and LEFT lower lobe.
[2024-10-01 10:40] LABS: Cyto Order Verification Order Verified
[2024-10-01 10:41] LABS: Color, Pleural Fluid Yellow (Pale Yellow); PATH Referral YES
[2024-10-01 10:43] LABS: Fluid Laterality Left Lower; Left Pleural Fluid Analysis Left Lung
[2024-10-01 10:53] LABS: Mononuclear %, Pleural Fluid 97 %; Mononuclear, Pleural Fluid # 0.733 10^3/uL; Polynuclear Cells, Pleural % 3 %
[2024-10-01 10:55] LABS: Cyto Order Verification Order Verified
[2024-10-01 10:56] LABS: Appearance, Pleural Fluid CLOUDY (CLEAR)
[2024-10-01 11:11] LABS: LDH Pleural Fluid 431 U/L; Pleural Fluid Cholesterol 95 mg/dL; Total Protein Pleural Fluid 4.2 g/dL
== END ==
LOC: GILAB 07:26
PROVIDERS: Radiology Neuroradiology; PCP Family Medicine; Visit Provider Family Medicine
PROC: (CPT 32554; principal; 2024-10-01 09:00)
DX: J90 Pleural effusion, not elsewhere classified (principal)
CPT/HCPCS: 32555; 36415; 71045; 80503; 82465; 82945; 83615; 84157; 85610; 88112; 89050

== ENCOUNTER 2024-10-05 07:58 | Outpatient (CLI) | payer MEDICARE, OTHER, SELFPAY ==
[2024-10-05] VITALS (14 sets, daily range): BP systolic 117–147; BP diastolic 66–94; PULSE 80–94; RESP 16–20; TEMP 36.5–36.7; O2SAT 92–96
--- NOTE | 2024-10-05 08:32 | US_ITS ---
WS: [id number] ULTRASOUND GUIDED BIOPSY ANTERIOR RIGHT RIB LESION HISTORY: Metastatic malignant neoplasm of bone Procedure, risks, and complications are explained to the patient. Consent was obtained. Skin is clean sed with ChloraPrep and anesthetized with 1% buffered lidocaine. Prior imaging studies are reviewed. There is a destructive bone lesion with bony expansion in the anterior RIGHT upper thorax. Rib lesion measures 2.9 x 2.8 cm and will be accessible for biopsy. Through a small dermatome multiple core biopsies are performed with 20 and 18-gauge Temno needles wit hout difficulty. No significant amount of procedural bleeding. Specimen is placed in formalin for pat hology. No complications encountered. Specimen is transported to pathology. Patient will be observed for 1 hour post procedure. US/ biopsy [id number] IMPRESSION: 1. Uncomplicated core biopsy of a destructive rib lesion in the anterior RIGHT upper thorax. Biopsies performed of the soft tissue component which is destroy ing the rib. 2. No complications.
[2024-10-05] MEDS: sodium chloride 0.9% 500 ML 30 ML IV (08:35)
[2024-10-05] MEDS: fentaNYL 50 mcg/mL INJ 2mL 25 MCG IVP (09:35)
[2024-10-05] MEDS: midazolam 1 mg/mL INJ 2 mL IVP (09:36)
== END 2024-10-05 10:50 | disposition home or self-care (01) ==
PROVIDERS: Radiology Diagnostic Radiology; PCP Family Medicine; Visit Provider Family Medicine
PROC: (CPT 20220; principal; 2024-10-05 09:00)
DX: C79.51 Secondary malignant neoplasm of bone (principal)
CPT/HCPCS: 20220; 76942; 88307; 88342; 99152; J2250; J3010; J7040; J9999

== ENCOUNTER 2024-10-06 13:45 | Outpatient (CLI) | payer MEDICARE, OTHER, SELFPAY ==
--- NOTE | 2024-10-06 13:59 | MR_ITS ---
WS: [id number] MRI BRAIN WITH AND WITHOUT CONTRAST HISTORY: METASTATIC MALIGANANT NEOPLASM COMPARISON: None available. TECHNIQUE: Multiplanar imaging performed through the brain with MultiHance 18 ml's IV. Diffusion imaging is negative for acute infarct. There are extensive enhancing cerebral and cerebella r metastasis. Masses range in size from a few millimeters to the largest in the RIGHT frontal lobe me asuring 2.7 x 2.7 cm with a large amount of surrounding vasogenic edema. There are numerous masses in all lobes. Smaller masses are ring-enhancing. Cerebral edema in the RIGHT frontal lobe extends acros s the midline by approximately 8 mm. There is mass effect upon the anterior horn of the RIGHT lateral ventricle. Extensive vasogenic edema most significant in the RIGHT frontal, posterior LEFT parietal, bilateral occipital lobes and RIGHT cerebellum. Few of the metastatic lesions contain hemosiderin. Mild cerebral atrophy. No ventriculomegaly. The fourth ventricle is widely patent. Paranasal sinuses: Well aerated with no significant disease. Mastoid air cells: Normal. Calvarium and scalp: There are a few enhancing lesions within the calvarium suspicious for metastasis . Low signal in the calvarium on the T1 sequences at several sites. The most concerning and largest i s 1.8 cm in the posterior LEFT parietal lobe. MR/MR head wo/w con [id number] IMPRESSION: 1. Extensive cerebral and cerebellar metastasis with a large amount of surroun ding vasogenic edema in the larger nodules. Metastatic sites range in size from a few millimeters with the largest in the RIGHT frontal lobe measuring 2.7 x 2 .7 cm. 2. RIGHT frontal lobe midline shift by 8 mm due to the edema. 3. A few of the metastatic lesions are hemorrhagic. 4. Calvarial metastasis. The largest in the LEFT parietal lobe.
[2024-10-06] MEDS: gadobenate dimeglumine 20 mL vial 18 ML IV (14:46)
== END 2024-10-06 13:48 | disposition home or self-care (01) ==
PROVIDERS: PCP Family Medicine; Visit Provider Family Medicine
DX: C79.31 Secondary malignant neoplasm of brain (principal)
CPT/HCPCS: 70553

== ENCOUNTER 2024-10-08 11:19 | Outpatient (CLI) | payer MEDICARE, OTHER, SELFPAY ==
--- NOTE | 2024-10-08 11:51 | PETR_ITS ---
PROCEDURE INFORMATION: Exam: PET/CT Skull Base to Mid-thigh Exam date and time: 10/08/2024 12:34 PM Age: 74 years old Clinical indication: Condition or disease; Primary cancer: Metastatic neoplasm of bone, lung cancer LABS AND CLINICAL REPORTS: Glucose: 158 mg/dl Treatment strategy for malignancy (PET staging): Initial Staging (PI) TECHNIQUE: Imaging protocol: Following at least four-hour fasting and following the injection of radiopharmaceutical, low dose CT images were obtained. Then, PET images were obtained. Attenuation corrected images were constructed using the CT scan. Fused images of PET and CT were reviewed. The standardized uptake values (SUV) reported below are maximum values within a region of interest, expressed in gm/ml. Exam includes orbital meatal line to mid-thigh. SUV normalization method: BodyWeight Radiopharmaceutical: 11.58 mCi F-18 FDG (Fluorodeoxyglucose), IV. Time of imaging post radiopharmaceutical administration: 47 minutes Injection site: left ac COMPARISON: 1. CT angio chest PE protcl 11500 09/28/2024 3:14 PM 2. MR head wo/w con [id number] 10/06/2024 2:18 PM FINDINGS: Brain: Multifocal bilateral cerebral and cerebellar FDG avid foci corresponding to metastatic lesions with associated vasogenic edema on recent comparison brain MRI, index right frontal lesion showing thickened rim FDG uptake with SUV max 13.2 on axial image 362 with lower uptake centrally. Pharynx: No abnormal uptake. Larynx: No abnormal uptake. Thyroid: Heterogeneously enlarged multinodular left thyroid gland with multiple foci of FDG uptake, index nodule measuring approximately 2.4 cm on axial image 304 with SUV max 15.9. Lungs, pleura and trachea: Very large left pleural effusion with volume loss of consolidated left lung showing FDG uptake 11.2 on axial image 241 with central area of photopenia. Mild residual aerated left upper lobe. FDG avid nodular left lower pleural thickening. Heart: Normal physiologic uptake. Coronary arteries: Heavy coronary artery calcification. Mediastinal space: No abnormal uptake. Liver: Ovoid masslike area FDG uptake at the inferior right liver with subtle underlying hypodensity showing SUV max 7.4 on axial image 186, measures approximately 4.2 cm on axial image 186. Gallbladder and biliary ducts: No abnormal uptake. Prior cholecystectomy. Pancreas: Focal uptake at the pancreatic head showing SUV max 11.5 on axial image [address] abnormality. Spleen: No abnormal uptake. Adrenal glands: FDG avid right adrenal mass measures 2.7 cm on axial image 195 with SUV max 15.4. Non FDG avid hypodense 2.4 x 1.5 cm left adrenal nodule compatible with adenoma. Kidneys and ureters: Normal physiologic uptake. Simple fluid density photopenic bilateral renal cysts. Stomach and bowel: Somewhat underdistended cecum with relative thickening showing SUV max 6.0 on axial image 163. Colonic diverticulosis without findings of diverticulitis. Vasculature: No abnormal uptake. Heavy systemic atherosclerotic calcification without aortic aneurysm. Lymph nodes: FDG avid bilateral supraclavicular, mediastinal, and upper abdominal lymphadenopathy with index right supraclavicular node measuring 1.4 cm in the short axis on axial image 306 with SUV max 12.1, subcarinal node measuring 3.2 cm in the short axis on axial image 257 with SUV max 7.5, and gastrohepatic node measuring 1.2 cm in the short axis on axial image 200 with SUV max 15.8. Skeleton: Numerous widespread FDG avid osseous metastatic disease with multiple lesions at the cranium (index 2.0 x 0.5 cm long left occipital lucency on axial image 362 with SUV max 14.7), subcentimeter lucent left mandibular lesion with SUV max 19.7 on axial image 334, index destructive expansile anterolateral right 3rd rib lesion measuring approximately 4.6 x 3.0 cm on axial image 269 with SUV max 18.0, T6 vertebral body lesion showing SUV max 15.7, T7 vertebral body lesion showing SUV max 17.4, expansile destructive right T10 transverse process lesion showing SUV max 20.1 on axial image 234, leftward L1 vertebral lesion showing SUV max 16 0.1, upper sternal lesion showing SUV max 12.2 on axial image 286, leftward sacral lesion showing SUV max 16.4 on axial image 137, and left supra-acetabular lesion showing SUV max 23.8. Soft tissues: No abnormal uptake in the visualized head, neck, chest, abdomen, pelvis, and extremities. Left upper back superficial subcutaneous photopenic hypodense focus measuring 1.4 x 0.7 cm on axial image 255 with broad dermal interface characteristic of epidermal inclusion cyst. METRICS: Mediastinal blood pool: SUV mean 2.0 Liver uptake: SUV mean 2.1 PET/PET skull to thigh INIT [id number] IMPRESSION: 1. Findings of widespread metastatic malignancy to include widespread osseous metastatic disease, multiple brain lesions, lymphadenopathy (supraclavicular, mediastinal, and upper abdominal), FDG avid liver lesion, and FDG avid right adrenal mass. 2. Masslike left lung consolidation with heterogeneous FDG uptake suspicious for malignancy. 3. Very large left pleural effusion is suspected malignant in the setting of FDG avid nodular pleural thickening. 4. Focal pancreatic head FDG uptake suspicious for malignancy. 5. Heterogeneously enlarged multinodular left thyroid gland with multiple foci of FDG uptake concerning for malignancy. 6. Relative cecal thickening and FDG uptake could be physiologic or inflammatory, malignancy not excluded.
== END 2024-10-08 11:20 | disposition home or self-care (01) ==
LOC: RAD 11:19
PROVIDERS: PCP Family Medicine; Visit Provider Family Medicine
DX: C79.51 Secondary malignant neoplasm of bone (principal); N40.0 Benign prostatic hyperplasia without lower urinary tract symptoms; R93.0 Abnormal findings on diagnostic imaging of skull and head, not elsewhere classified; E04.9 Nontoxic goiter, unspecified; J90 Pleural effusion, not elsewhere classified; R91.8 Other nonspecific abnormal finding of lung field; I25.10 Atherosclerotic heart disease of native coronary artery without angina pectoris; R93.2 Abnormal findings on diagnostic imaging of liver and biliary tract; Z90.49 Acquired absence of other specified parts of digestive tract; R93.89 Abnormal findings on diagnostic imaging of other specified body structures; N28.1 Cyst of kidney, acquired; I70.0 Atherosclerosis of aorta; R59.0 Localized enlarged lymph nodes; R93.7 Abnormal findings on diagnostic imaging of other parts of musculoskeletal system
CPT/HCPCS: 78815; A9552

== ENCOUNTER 2024-10-14 11:31 | Day surgery (SDC) | payer MEDICARE, OTHER, SELFPAY ==
[2024-10-14 11:43] VITALS: BMI 23.7
[2024-10-14 11:44] VITALS: BP 128/70; PULSE 96; RESP 20; TEMP 36.3; O2SAT 95
--- NOTE | 2024-10-14 11:45 | US_ITS ---
WS: [id number] ULTRASOUND-GUIDED THORACENTESIS CLINICAL INFORMATION: malignant neoplasm left lung PROCEDURE: Informed consent: The risks, benefits, and alternatives of the procedure were discussed with the patient. Verbal and written consent was obtained. Timeout: A timeout was performed to confirm the correct patient, procedure, and site. Site: LEFT Preparation: A suitable skin site was identified. The patient was prepped and draped in usual sterile fashion. Lidocaine 1% was used for local anesthesia. Catheter: 4 [place] One-Step catheter. Fluid Volume: 1000 ml Color: Bloody Complications: None. Patient disposition: Discharged from the department in stable condition. / thoracentesis [id number] IMPRESSION: Uncomplicated ultrasound-guided thoracentesis. Removal of 1000 cc bloody fluid
--- NOTE | 2024-10-14 13:24 | XR_ITS ---
WS: [id number] CHEST XRAY TECHNIQUE: Portable chest. CLINICAL INFORMATION: post thoracentesis COMPARISON: 10/01/2024 and PET/CT 10/08/2024 FINDINGS: Recent PET/CT demonstrated near complete opacification of the LEFT hemithorax. 1000 cc removed today with thoracentesis. Persistent opacification LEFT hemithorax with improved aeration in the LEFT upper lobe with air bronchograms about the LEFT hilum. Compressive atelectasis posterior medially. RIGHT lung is well aerated. No pneumothorax. Large LEFT thyroid mass at the thoracic inlet as previously described. XR/XR chest 1V portable [id number] IMPRESSION: See discussion above
[2024-10-14 13:58] VITALS: BP 136/84; PULSE 84; RESP 18; O2SAT 95
== END 2024-10-14 14:05 | disposition home or self-care (01) ==
LOC: GILAB 11:31
PROVIDERS: Radiology Neuroradiology; PCP Family Medicine; Visit Provider Internal Medicine Medical Oncology
PROC: (CPT 32554; principal; 2024-10-14 12:30)
DX: C34.82 Malignant neoplasm of overlapping sites of left bronchus and lung (principal); C79.52 Secondary malignant neoplasm of bone marrow; J98.11 Atelectasis
CPT/HCPCS: 32555; 71045

== ENCOUNTER 2024-10-18 13:30 | Outpatient (CLI) | payer MEDICARE, OTHER, SELFPAY ==
--- NOTE | 2024-10-18 13:44 | USCV_ITS ---
Maxwell Morris Age: 74 Gender: M : 1950 Exam Date: 10/18/2024 13:52 Ordering Phys: Chace Barrera MD Technologist: CT Exam Location: [facility] [place] Indication: THACKER BP: 148 / 76 HR: 107 Rhythm: Sinus Technical Quality: Adequate MEASUREMENTS (Male / Female) Normal Values 2D ECHO LVOT Diameter 2.0 cm LV Ejection Fraction MOD 4C 53.5 % LA Diameter 1.9 cm Aorta at Sinotubular Diameter 3.1 cm IVC Diameter 2.3 cm M-MODE LA Ao Ratio MM 0.8 AV Cusp Separation MM 1.4 cm DOPPLER AV Peak Velocity 155.0 cm/s LVOT Peak Velocity 119.0 cm/s AV Area Cont Eq vti 2.3 cm squared AV Area Cont Eq pk 2.5 cm squared TR Peak Velocity 233.0 cm/s TR Peak Gradient 21.7 mmHg PV Peak Velocity 136.8 cm/s FINDINGS Left Ventricle Possibly normal LV size and ejection fraction of around 55%. Only subcostal views were obtained. Because of the technical difficulties the ejection fraction estimation could be misleading Right Ventricle Possibly of normal size and ejection fraction Right Atrium Appears to be of normal size Left Atrium Appears to be of normal size Mitral Valve No gross abnormalities noted Aortic Valve Thickened aortic valve. Tricuspid Valve No gross abnormalities noted Pulmonic Valve No gross abnormalities noted Pericardium Trivial pericardial effusion. Seems to have at least moderate left-sided pleural effusion Aorta Normal aortic annulus size. IVC Normal IVC dimension with <50% respiratory change of the inferior vena cava. CONCLUSIONS Possibly normal LV size and ejection fraction of around 55%. Only subcostal views were obtained. Because of the technical difficulties the ejection fraction estimation could be misleading. Thickened aortic valve. Trivial pericardial effusion. Seems to have at least moderate left-sided pleural effusion. Estimated right atrial pressure around 8 mmHg No similar previous studies are available for comparison . Dr Maryuri Fuentes MD [facility] (Electronically Signed) Final Date: 19 October 2024 08:33 S
== END 2024-10-18 13:31 | disposition home or self-care (01) ==
PROVIDERS: PCP Family Medicine; Visit Provider Family Medicine
DX: R06.09 Other forms of dyspnea (principal); I35.8 Other nonrheumatic aortic valve disorders; R93.1 Abnormal findings on diagnostic imaging of heart and coronary circulation; J90 Pleural effusion, not elsewhere classified; I35.0 Nonrheumatic aortic (valve) stenosis
CPT/HCPCS: 93306; 99214

== ENCOUNTER 2024-10-19 09:12 | Day surgery (SDC) | payer MEDICARE, OTHER, SELFPAY ==
[2024-10-19] VITALS (16 sets, daily range): BP systolic 107–134; BP diastolic 54–80; PULSE 85–103; RESP 8–25; TEMP 36.4–36.6; O2SAT 90–98; BMI 23.7
--- NOTE | 2024-10-19 09:16 | SC_ITS ---
WS: [id number] C-arm FL for CVA [id number] REASON FOR EXAM: Mediport FINDINGS: Chemotherapy infusion port over the upper lateral right chest with trans right subclavian vein infusion catheter in the superior vena cava. No right pneumothorax. Right lung mass again noted as seen on previous examination 10/14/2024. Opacification of the left hemithorax. SC/C-arm FL for CVA [id number] IMPRESSION: Chemotherapy port and infusion catheter placement as above.
--- NOTE | 2024-10-19 09:17 | ANES.PREANE2 ---
Pre-Anesthetic Assessment Height/Weight: Height 6 ft 1 in Preop Diagnosis: Lung cancer Operation Date: 10/19/24 10:45 Proposed Procedures p Portacath Placement 27782, C34.82(Not Applicable) - Raymundo Cheng, DO Was Beta Deana taken within 24 hours: N/A Was Clonidine taken within 24 hours: N/A Social No alcohol and No tobacco Exam alert, oriented x 3 and regular rate & rhythm Decreased breath sounds bilaterally Airway Submandibular: within normal limits Cervical ROM: within normal limits Mallampati: Class II Comments: Comments: Very poor dentition, denies any loose Anesthetic Plan ASA status: 3 Anesthesia: MAC Other: Patient states that he gets hypotensive with anesthesia NPO for the last day, unknown when he last time had a drink. He avoids drinking prior to chemotherapy because he gets sick Patient had chemotherapy this morning states that he feels okay right now Patient has small cell lung cancer, no home oxygen. Does admit to SOB with any exertion Labs reviewed from August and acceptable for procedure Plan for MAC anesthetic Medications/Allergies Home Medications ?Medication ?Instructions ?Recorded ?Confirmed ?Last Taken ?Type cholecalciferol (vitamin D3) 50 50 mcg PO DAILY 07/16/21 10/18/24 10/13/24 History mcg (2,000 unit) capsule aspirin 325 mg tablet 81 mg PO QAM 07/31/21 10/18/24 10/13/24 History Held on 07/18/22. Instructions: Resume on 07/21/22. multivitamin 1 tab PO QAM 07/31/21 10/18/24 10/13/24 History alfuzosin 10 mg tablet,extended 10 mg PO DAILY 07/17/22 10/18/24 10/13/24 History release 24 hr (Uroxatral) tadalafil 20 mg tablet (Cialis) 20 mg PO DAILY PRN sexual activity 07/17/22 10/18/24 Unknown History acetaminophen 500 mg tablet 1,000 mg PO Q6H PRN Pain 10/05/24 10/18/24 10/05/24 History (Tylenol Extra Strength) dexamethasone 4 mg tablet 4 mg PO TID #30 tabs 10/12/24 10/18/24 10/14/24 10:30 Rx lorazepam 1 mg tablet (Ativan) 1 mg PO TID PRN anxiety/ nausea 10/14/24 10/18/24 Unknown Rx #30 tabs ondansetron 8 mg disintegrating 8 mg PO Q8H nausea #30 tabs 10/14/24 10/18/24 Unknown Rx tablet Allergies Allergy/AdvReac Type Severity Reaction Status Date / Time No Known Allergies Allergy Verified 10/18/24 15:19 PFSH Anesthesia Medical History Skin lesion LOCAL EXCISION Elevated PSA Surgical History Hx laparoscopic cholecystectomy 07/18/22 Status post carotid surgery 2 STENTS AT [facility] IN 10/2010 Family History Mother Healthy adult Father , AT AGE 42 Automobile accident Social History Smoking and tobacco/nicotine status: light tobacco/nicotine user cigarettes [ Other cigarette details: 3 cigarettes daily] Alcohol intake: never Substance/Drug Use: never Marital status: Current occupational status: retired Data Anesthesia Cardiac Studies: Echocardiogram Ultrasound 10/18/24
--- NOTE | 2024-10-19 10:17 | W.PM.OPSUD ---
Surgery/Procedure H&P Update DATE OF PROCEDURE: October 19, 2024 DATE H&P PERFORMED: 10/18/24 H&P UPDATE INFORMATION: I have reviewed H&P completed within last 30 days, I have examined patient prior to procedure and No changes to prior documentation PREOP DIAGNOSIS: Lung cancer PLANNED PROCEDURE: Operation Date: 10/19/24 10:45 Proposed Procedures p Portacath Placement 72685, C34.82(Not Applicable) - Raymundo Cheng DO
[2024-10-19] MEDS: fentaNYL 50 mcg/mL INJ 2mL 25 MCG IVP (10:30)
[2024-10-19] MEDS: ondansetron 2 mg/ML SDV 2 mL 4 MG IVP (10:30)
[2024-10-19] MEDS: sodium chloride 0.9% 1,000 ML 30 ML IV (10:32)
[2024-10-19] MEDS: ceFAZolin 2,000 mg SDV 2000 MG IVP (10:53)
[2024-10-19] MEDS: lidocaine-epi 2% PF 1:200,000 20 mL SDV XX (11:13)
[2024-10-19] MEDS: heparin, porcine 1,000 unit/mL INJ 10 mL 10000 UNIT INJECTION (11:18)
--- NOTE | 2024-10-19 11:28 | PM.OP ---
Operative Report Date of procedure: October 19, 2024 Surgeon: Raymundo Cheng DO Brief History: This very pleasant 74-year-old gentleman with metastatic lung cancer. Mediport placement was requested for chemotherapy access. The risks and benefits of the procedure were explained and documented. Procedure: Preoperative diagnosis: Metastatic lung cancer Post-op diagnosis: same Procedure done: Mediport placement Intraoperative interpretation of fluoroscopy Implants: PowerPort Specimens removed/disposition: None Surgeon: Raymundo Cheng DO Anesthesia: MAC and Local Estimated blood loss (mL): 5 Complications: None apparent Procedure: The patient was taken to the operating room and placed supine on the operating room table. All bony prominences were padded. She was given IV sedation and monitored throughout the case by the anesthesia personnel. SCDs were placed and turned on. The arms were tucked to the side. Patient received Ancef 2 g preoperatively IV. The bilateral chest wall was prepped and draped in usual sterile fashion using chlorhexidine base prep. Sterile drapes were applied. We did procedure pause prior to beginning. Attempts were made to access the left subclavian vein but were unsuccessful. I then moved to the right side. An 18 gauge needle was placed in the right subclavian vein. Dark, nonpulsatile blood was aspirated. A guidewire was placed through the needle centrally toward the atrial/vena caval junction. Fluoroscopy visualized good placement. The needle was removed and the guidewire was clipped to the drape with a hemostat. Further local anesthetic was infiltrated in the soft tissues of the right chest wall and a #15 blade was used to make a horizontal skin incision. A subcutaneous Mediport pocket was created using Bovie cautery, dissecting down through the skin and subcutaneous tissues. Meticulous hemostasis was achieved. The Mediport was sutured in position using 3-0 vicryl suture x2 stitches. A #15 blade was used to make a small skin katya around the guidewire insertion area. The Mediport tubing was tunneled through the subcutaneous tissues up to the needle insertion location. A dilator with a peel-away sheath was placed over the guidewire and placed centrally. After measuring the Mediport tubing was cut to length so that the tip would end at the atrial/vena caval junction. The inner cannula and the guidewire were removed, leaving the dilator sheath in place. The Mediport was flushed. The tip of the catheter was inserted through the peel-away sheath and the peel-away sheath removed in the standard fashion. The Mediport was accessed with a straight Ivy needle and dark, nonpulsatile blood was aspirated and flushed using heparinized saline to hep-lock the Mediport. Final fluoroscopy visualization showed no kink in the catheter and the tip of the Mediport tubing near the atrial/vena caval junction. There is no obvious pneumothorax. Both skin incisions were thoroughly irrigated and suctioned dry. Meticulous hemostasis noted. The dermis was approximated with 3-0 Vicryl in an interrupted fashion. Skin was closed with Dermabond. Patient was awakened from anesthesia and transferred via her cart to the recovery room in stable condition. All needle, sponge, and instrument counts were correct per the operating personnel x2 counts.
--- NOTE | 2024-10-19 12:07 | PC.NURSE ---
1200 - pt tele rhythm reviewed via monitor with Dr Cintron and this nurse -
--- NOTE | 2024-10-19 12:35 | XR_ITS ---
WS: [id number] XR chest 1V portable [id number] REASON FOR EXAM: PORTACATH FINDINGS: Chemotherapy infusion port in place over the upper lateral right chest. Trans right subclavian infusion catheter with tip in the distal superior vena cava. There is essentially complete opacification of the left hemithorax with mild shift of the mediastinal structures to the right. Only a small amount of aerated lung was identifiable on the postthoracentesis film of 10/14/2024. Right peripheral lung mass possibly somewhat larger than on the previous examination. XR/XR chest 1V portable [id number] IMPRESSION: Reaccumulation of right pleural effusion with mild mediastinal shift compared t o the previous examination of 10/14/2024.
--- NOTE | 2024-10-19 13:31 | PC.NURSE ---
Order received from Dr. Cheng for Phenergan 25mg 1 rectal q4-6hrs N/V #12 no refills VRBO. Called into Pharmacist Laureano Bass
--- NOTE | 2024-10-19 14:00 | ANE.PACU2 ---
Inpatient post-anesthesia follow up: Airway intact: Yes Vital signs: Temperature 97.7 F Pulse Rate 88 Respiratory Rate 18 Blood Pressure 122/69 Pulse Oximetry 95 Oxygen Delivery Me thod Room Air Oxygen Flow Rate Fraction of Inspir ed Oxygen Hydration adequate: Yes Nausea and vomiting: No Pain level: 1 Mental status: Baseline
== END 2024-10-19 14:00 | disposition home or self-care (01) ==
PROVIDERS: PCP Family Medicine; Visit Provider Surgery
DX: C34.82 Malignant neoplasm of overlapping sites of left bronchus and lung (principal); C79.51 Secondary malignant neoplasm of bone; C78.7 Secondary malignant neoplasm of liver and intrahepatic bile duct; C79.31 Secondary malignant neoplasm of brain; Z79.899 Other long term (current) drug therapy; F17.210 Nicotine dependence, cigarettes, uncomplicated; K08.89 Other specified disorders of teeth and supporting structures; Z79.82 Long term (current) use of aspirin
CPT/HCPCS: 71045; 77001; C1788; J0690; J1100; J1644; J2405; J2704; J3010; J7030

== ENCOUNTER 2024-10-25 07:33 | Oncology outpatient (recurring) (ONCR) | payer MEDICARE, OTHER, SELFPAY ==
--- NOTE | 2024-10-12 08:46 | N.ONRAD NP_ITS ---
Radiation Oncology New Patient Visit Patient: Maxwell Morris MR#: [id number] : 1950> Age: 74> Sex: Male> Dictated by: Dr. Megha Magallon Date of Service: 10/11/2024 Referring Physician(s) : Arnav Diagnosis: High-grade neuroendocrine tumor/small cell stage IV Radiotherapy to date: Summary > No prior radiation therapy. Chief Complaint / History of Present Illness: Patient is a 74-year-old gentleman who says retrospectively he has not felt well for about a year. He started initially having right upper quadrant pain and coughing. Went to the emergency room and was placed on steroids, pain medication and cough medicine. Couple weeks later the symptoms recurred and he also began to have increasing shortness of breath. He became confused as well he visited with his new primary and subsequent workup ensued. He has been found to have bone metastasis, brain mets, liver mets and lung disease. This was found on both PET and MRI. A biopsy from the a rib lesion showed small cell carcinoma. He is seen today in consultation to discuss radiation for the brain metastasis. He has been previously placed on dexamethasone. Current Medications: Allergies: No Known Allergies Medical History: Skin lesion LOCAL EXCISION Elevated PSA Surgical History: Hx laparoscopic cholecystectomy 07/18/22 Status post carotid surgery 2 STENTS AT [facility] IN 10/2010 Family History: Mother Healthy adult Father , AT AGE 42 Automobile accident Social History: Smoking and tobacco/nicotine status: current every day tobacco/nicotine user Alcohol intake: never Substance/Drug Use: never Marital status: Current occupational status: retired Current Complaints / Review of Systems: . Vital Signs: Performed on 10/11/2024 3:17 PM BMI - 24.17 kg/m2 (high), Height - 73 in, Weight - 183.2 lbs, Temperature - 97.1 f, Pulse - 112 /min (high), Respiration - 18 /min, O2 Sat - 95 % (low), Pain - 6, Fatigue - 0 and BP - 148/ 76 mm(hg)(high/). Physical Exam: General: Patient is in no apparent distress. He is companied by his . HEENT: Normocephalic atraumatic. Pupils are equal, sclera clear, extraocular muscles intact Pulmonary: Respiratory is regular nonlabored Cardiovascular: Regular rate and rhythm Abdomen: Moderately protuberant android pattern Extremities: No edema or lymphedema is noted Neurological: Alert and orient x 3. Patient is currently in a wheelchair. Speech is intact. 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 We talked about how the swelling had caused quite a considerable amount of pressure on his brain. He was started on the dexamethasone last week. He is taking 3 pills a day. Of asked his to make sure that he adds Prevacid or Prilosec to his medication list as while he is on the steroids. We talked about the findings on his PET scan and how he has extensive disease. The pathology just returned this morning and I reviewed that with him as well. We talked about a course of radiation to the whole brain to try and get the disease in his brain under control. We reviewed the simulation process. We discussed the risks and side effects both acute and long-term. This point he is agreed to proceed. He will return tomorrow to undergo simulation and begin his treatments as soon as possible after that. He will also be meeting with medical oncology here shortly to discuss systemic treatment. Signed by: 10/12/2024 8:44:56 AM <<Signature on File>> Time spent on patient:45 CPT Code: * CPT Code: *
[2024-10-14] MEDS: ondansetron hcl ODT 4 mg Tab 8 MG PO (14:44)
[2024-10-14] MEDS: sodium chloride 0.9% 1,000 ML 999 ML IV (15:00)
[2024-10-14 16:16] VITALS: BP 127/68; PULSE 84; RESP 18; TEMP 36.6; O2SAT 98
[2024-10-18] MEDS: ondansetron 2 mg/ML SDV 2 mL 8 MG IVP (11:39)
[2024-10-18] MEDS: sodium chloride 0.9% 1,000 ML 999 ML IV (11:40)
[2024-10-18] MEDS: dexamethasone 4 mg/mL INJ 5 mL 12 MG IV (14:37)
[2024-10-18 14:48] VITALS: BP 94/62; PULSE 96; RESP 20; TEMP 36.6; O2SAT 99
--- NOTE | 2024-10-19 09:13 | ONCRAD TMN_ITS ---
Radiation Oncology Weekly Treatment Management Patient: Maxwell Morris MR#: [id number] : 1950 Attending Physician: Dr. Megha Magallon Date of Service: 10/19/2024 Fractions: 4 out of 10 Referring Physician(s) : Diagnosis: C34.92 - Malignant neoplasm of unspecified part of left bronchus or lung, Diagnosed 10/12/2024 (Active) C79.31 - Secondary malignant neoplasm of brain, Diagnosed 10/12/2024 (Active) Radiotherapy to date: Course: whole brain, Treatment Site: [id number], Ref. ID: [id number], Energy: 15X, Dose/Fx (cGy): 300, #Fx: , Dose Correction (cGy): 0, Total Dose Delivered (cGy): 1,200, Start Date: 10/14/2024, Elapsed Days: 5 Reason for visit: The patient is being seen today as part of their regularly scheduled weekly on treatment visits to assess for acute toxicities from radiotherapy. Review of Systems: Patient continues to have trouble swallowing and respiratory decline. He is getting his port placed today. Vital Signs: BMI - 22.429 kg/m2, Height - 73 in, Weight - 170 lbs, Temperature - 97 f, Pulse - 82 /min, Respiration - 18 /min, O2 Sat - 97 %, Pain - 0, Fatigue - 0 and BP - 112/ 63 mm(hg)(/low). Physical Exam: No change on exam Imaging: Radiation therapy imaging related to accurate target localization (i.e. KV, MV and CBCT) was reviewed. Appropriate changes, if any, were made to ensure treatment accuracy. Plan: Will continue with his treatments through Friday. Next week he will start his chemotherapy. Once he has completed that first cycle of chemo we will swing back around and finish the last 3 treatments. Signed by: Dr. Megha Magallon 10/19/2024 9:11:22 AM
[2024-10-20] MEDS: sodium chloride 0.9% 1,000 ML 75 ML IV (10:52)
[2024-10-20] MEDS: sodium chloride 0.9% 1,000 ML 999 ML IV (10:52)
[2024-10-20] MEDS: dexamethasone 4 mg/mL INJ 5 mL 12 MG IV (10:54)
[2024-10-20 12:10] VITALS: BP 108/62; PULSE 68; RESP 18; TEMP 36.4; O2SAT 97
[2024-10-21 11:00] VITALS: BP 112/72; PULSE 72; RESP 17; TEMP 36.6; O2SAT 99
[2024-10-21] MEDS: sodium chloride 0.9% 1,000 ML 999 ML IV (11:00)
[2024-10-21] MEDS: dexamethasone 4 mg/mL INJ 5 mL 12 MG IV (11:02)
[2024-10-22] MEDS: sodium chloride 0.9% 1,000 ML 999 ML IV (10:58)
[2024-10-22] MEDS: dexamethasone 4 mg/mL INJ 5 mL 12 MG IV (10:59)
[2024-10-22 11:12] VITALS: BP 107/59; PULSE 113; RESP 18; TEMP 36.3; O2SAT 97
[2024-10-22 12:19] VITALS: BP 119/71; PULSE 78; RESP 17; TEMP 36.2; O2SAT 100
[2024-10-25 08:46] LABS: Magnesium 2.9 mg/dL (1.7-2.3)
[2024-10-25] MEDS: folic acid 1 MG, multivitamin inj 10 ML, thiamine 100 MG in sodium chloride 0.9% 1,000 ML 505.6 MG IV (09:06)
[2024-10-25 09:14] VITALS: RESP 16; O2SAT 96
[2024-10-25] MEDS: morphine 4 mg/mL SDV 1 mL 2 MG IVP (09:14)
[2024-10-25] MEDS: ondansetron 2 mg/ML SDV 2 mL 8 MG IVP (09:21)
[2024-10-25 14:52] VITALS: BP 82/46; PULSE 80; RESP 20; TEMP 36.1; O2SAT 96
--- NOTE | 2024-10-25 14:55 | PC.NURSE ---
Patient was a direct admit to ICU from the infusion suite. Patient was wheeled to ICU by myself and an DIGITAL PRODUCTION MANAGER.
== END 2024-10-26 23:59 | disposition home or self-care (01) ==
PROVIDERS: Nurse Practitioner Family; PCP Family Medicine; Visit Provider Radiology Radiation Oncology
DX: Z53.9 Procedure and treatment not carried out, unspecified reason; Z51.11 Encounter for antineoplastic chemotherapy; C34.82 Malignant neoplasm of overlapping sites of left bronchus and lung; C79.31 Secondary malignant neoplasm of brain; C79.52 Secondary malignant neoplasm of bone marrow; C77.1 Secondary and unspecified malignant neoplasm of intrathoracic lymph nodes; I95.9 Hypotension, unspecified; E86.0 Dehydration; R53.83 Other fatigue; Z79.899 Other long term (current) drug therapy; Z72.0 Tobacco use
CPT/HCPCS: 36415; 77290; 77295; 77300; 77334; 77336; 77387; 77412; 83735; 96360; 96361; 96365; 96366; 96374; 96375; 99024; 99205; 99215; J1100; J2270; J2405; J3411; J3490; J7030; Q0162

== ENCOUNTER 2024-10-25 10:52 | Inpatient (IN) | payer MEDICARE, OTHER, SELFPAY ==
[2024-10-25] VITALS (91 sets, daily range): BP systolic 75–136; BP diastolic 45–84; PULSE 94–170; RESP 9–29; TEMP 35.1–36.3; O2SAT 88–100; BMI 22.1
--- OUTSIDE RECORDS SUMMARY | 2024-10-25 11:04 | XMS_ITS | Data Portability ---
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 Regardless I am hopeful that we finish the full procedure so that we can avoid a barium enema. Not available 05/26/2024 17:24:15 06/28/2024 06/28/2024 We discussed options. We will consider a colonoscopy in 3 years. Due to age and/or health patient may decide to forego next colonoscopy. Not available 06/28/2024 10:07:06 09/27/2024 09/27/2024 er records reviewed. [email or web address] Not available 09/27/2024 15:28:01 09/29/2024 09/29/2024 the patient confirms he has been off mentally his memory has changed his notes it is hard for him to remember things and he trails off. this is new and fairly abrupt over the last several weeks to a month. concern for brain metastasis. We discussed options. We will consider a colonoscopy in 3 years. Due to age and/or health patient may decide to forego next colonoscopy. Not available 09/29/2024 13:52:57 10/06/2024 10/06/2024 the patient confirms he has been off mentally his memory has changed his notes it is hard for him to remember things and he trails off. this is new and fairly abrupt over the last several weeks to a month. concern for brain metastasis. We discussed options. We will consider a colonoscopy in 3 years. Due to age and/or health patient may decide to forego next colonoscopy. [email or web address] Not available 10/06/2024 14:13:03 Plan of Treatment Reminders Order Date Submit Date Provider Last Modified By Organization Details Last Modified Time Details Appointments NEW PATIENT 2024 01:45P Bryan Barrera MD Not available Not available Not available Lab PSA, serum or plasma 2024 025 Tissue Regenix [facility], [address] [facility], [place], [address], 09/28/2024 12:53:10 lipid panel, serum 2024 025 [place] [address] [facility], [address], [address], [place], [address], 10/04/2024 08:29:53 CBC 2024 025 BRONTE [facility], [address], [address], [place], [address], 09/27/2024 16:04:43 CMP, serum or plasma 2024 025 [facility], [address], [address], [place], [address], 09/27/2024 16:32:23 D-dimer , quant, plasma 2024 025 [facility], [address], [address], [place], [address], 09/28/2024 12:53:08 BNP (B-type natriur etic peptide ), blood 2024 025 [place] [address] Yu Rong [facility], [address] [facility] , [address], [place], [address], 10/04/2024 08:29:53 C-react mirna protein , quantit ative, serum or plasma 2024 025 BRONTE [facility], [address] [facility] , [address], [place], [address], 09/28/2024 12:53:09 ESR (erythr ocyte sedimen tation rate), blood 2024 025 [facility] ([facility]), [address] [place], [address], 09/27/2024 17:05:19 Referral interve ntional radiolo gist referra l [email or web address] [place], [place] [address]al Scheduling, [address] [place], [address], 10/07/2024 18:28:26 pulmono logist referra l 2024 025 [facility], [address], [address], [place], [address], 10/18/2024 10:18:02 interve ntional radiolo gist referra l [address], [address] [place], [address], 09/29/2024 15:59:00 interve ntional radiolo gist referra l - diagnos tic left thorace ntesis and right rib biopsy [address], [address] [place], [address], 09/29/2024 15:58:59 Procedures colonos copy screeni ng (PROC) 2023 024 asurface [facility], [address] , [place], [address], 06/02/2024 09:34:51 colonos copy, with removal of tumor, polyp or lesion (PROC) 2023 024 [facility] Not available 06/02/2024 09:39:39 Surgeries None sergio dShelia Imaging PET-CT, skull base to mid-thi gh scan [address] (Scheduling Orders), [address] [place], [address], 10/07/2024 10:07:55 MRI, brain, w/wo contras t 2024 025 FARAZ [facility] (Scheduling Orders), [address] [place], [address], 10/07/2024 10:47:35 PET-CT, skull base to mid-thi gh scan 2024 025 asurface [facility] (Scheduling Orders), [address] [place], [address], 10/04/2024 17:51:26 MRI, brain, w/wo contras t [address] (Scheduling Orders), [address] [place], [address], 10/01/2024 15:31:20 US, echocar diogram , transth oracic, complet e, w/ color flow [email or web address] (Scheduling Orders), [address] [place], [address], 09/29/2024 15:59:00 electro cardiog ca [address] ([facility]), [address] [place], [address], 09/28/2024 10:52:40 US, echocar diogram [address] (Scheduling Orders), [address] [facility] [place], [address], 10/01/2024 17:32:35 Medication Orders tramado l 50 mg tablet 2024 025 [facility][id number], [address], [place], [place], [id number], 10/06/2024 14:20:03 Eliquis 5 mg tablet 2024 025 [facility] #[id number], [address], [place], [place], [id number], 10/06/2024 14:21:36 alprazo rivera 0.5 mg tablet 2024 025 [facility] #[id number], [address] [facility], [facility], [place], [address], 10/06/2024 14:18:41 aspirin 81 mg tablet, delayed release 2024 025 [facility] #[id number], [address], [place], [place], [id number], 09/27/2024 15:12:04 Patient TargetsNo targets recorded. 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 Referring Physician: [facility], Encounter Date: 09/29/2024 Interventional Radiologist R eferral for 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 Referring Physician: Cinthya Barrera [facility], Encounter Date: 10/06/2024 Final Finisher Forging Dies Referral for M etastatic malignant neoplasm to bone Referring Physician: Cinthya Barrera [facility], Encounter Date: 10/06/2024 Results Created Date Observation Date Name Description Value Unit Range Abnormal Flag Note LastModifiedBy Organization Detail LastModifiedTime 09/27/1909/27/2024 CBC WBC 7.7 x10 4.5-10 .5 Not Available [facility] [address] [facility] [address], [place], [address], 09/27/2024 16:04:42 09/27/19 25 09/27/2024 CBC RBC 4.85 x10 4.30-5 .90 Not Available [facility] [address] [facility] [address], [place], [address], 09/27/2024 16:04:42 09/27/19 25 09/27/2024 CBC HGB 15.0 g/dL 13.5-1 8.0 Not Available [facility] [address] [facility] [address], [place], [address], 09/27/2024 16:04:42 09/27/19 25 09/27/2024 CBC HCT 44.0 % 35.0-6 0.0 Not Available [facility] [address] [facility] [address], [place], [address], 09/27/2024 16:04:42 09/27/19 25 09/27/2024 CBC MCV 90.7 fL 80.0-9 9.9 Not Available [facility] [address] [facility] [address], [place], [address], 09/27/2024 16:04:42 09/27/19 25 09/27/2024 CBC MCH 30.9 pg 27.0-3 2.0 Not Available [facility] [address] [facility], [place], [address], 09/27/2024 16:04:42 09/27/19 25 09/27/2024 CBC MCHC 34.1 g/dL 32.0-3 6.0 Not Available [facility] [address] [facility], [place], [address], 09/27/2024 16:04:42 09/27/19 25 09/27/2024 CBC RDW 13.4 % 11.5-1 4.5 Not Available [facility] [address] [facility], [place], [address], 09/27/2024 16:04:42 09/27/19 25 09/27/2024 CBC plt 288.7 x10 150.0- 451.0 Not Available [facility] [address] [facility] [address], [place], [address], 09/27/2024 16:04:42 09/27/19 25 09/27/2024 CBC lymphocytes % 16.2 % 20.0-5 0.0 low Not Available [facility] [address] [facility] [address], [place], [address], 09/27/2024 16:04:42 09/27/19 25 09/27/2024 CBC granulcytes % 75.9 % 30.0-7 0.0 high Not Available [facility] [address] [facility] [address], [place], [address], 09/27/2024 16:04:42 09/27/19 25 09/27/2024 CBC monocytes % 6.9 % 2.0-16 .0 Not Available [facility] [address] [facility] [address] [address], [place], [address], 09/27/2024 16:04:42 09/27/19 25 09/27/2024 CBC granulcytes# 5.9 x10 Not Andie ilable [facility] [address] [address], [place], [address], 09/27/2024 16:04:42 09/27/19 25 09/27/2024 CBC lymphocytes # 1.3 x10 Not Available [facility] [address] [address], [place], [address], 09/27/2024 16:04:42 09/27/19 25 09/27/2024 CBC monocytes # 0.5 x10 Not Avai lable [facility] [address] [address], [place], [address], 09/27/2024 16:04:42 09/27/19 25 09/27/2024 LIPID PROFI LE (MALE ) cholesterol 214.0 mg/dL 0.0-20 0.0 high Not Available [facility] [address] [address], [place], [address], 09/27/2024 16:32:19 09/27/19 25 09/27/2024 LIPID PROFI LE (MALE ) trig 161.0 mg/dL 0.0-15 0.0 high Not Available [facility] [address] [address], [place], [address], 09/27/2024 16:32:19 09/27/19 25 09/27/2024 LIPID PROFI LE (MALE ) HDL - direct 43.0 mg/dL >40.0 Not Available [facility] [address] [address], [place], [address], 09/27/2024 16:32:19 09/27/19 25 09/27/2024 LIPID PROFI LE (MALE ) VLDL - direct 32.2 mg/dL Not Available [facility] [address] [address], [place], [address], 09/27/2024 16:32:19 09/27/19 25 09/27/2024 LIPID PROFI LE (MALE ) LDL - direct 138.8 mg/dL 0.0-13 0.0 high Not Available [facility] [address] [facility], [place], [address], 09/27/2024 16:32:19 09/27/19 25 09/27/2024 CMP (MALE ) glucose 125.0 mg/dL 60.0-9 9.0 high Not Available [facility] [address] [facility] [address], [place], [address], 09/27/2024 16:32:23 09/27/19 25 09/27/2024 CMP (MALE ) BUN (blood urea nitrogen) 15.0 mg/dL 10.0-2 6.0 Not Available [facility] [address] [facility] [address], [place], [address], 09/27/2024 16:32:23 09/27/19 25 09/27/2024 CMP (MALE ) creatinine (serum) 1.0 mg/dL 0.4-1. 5 Not Available [facility] [address] [facility] [address], [place], [address], 09/27/2024 16:32:23 09/27/19 25 09/27/2024 CMP (MALE ) BUN/creatini ne ratio 15.00 ratio Not Available [facility] [address] [facility] [address], [place], [address], 09/27/2024 16:32:23 09/27/19 25 09/27/2024 CMP (MALE ) eGFR calculated 77.4 Not Available [facility] [address] [facility], [place], [address], 09/27/2024 16:32:23 09/27/19 25 09/27/2024 CMP (MALE ) total protein 7.7 g/dL 6.0-8. 5 Not Available [facility] [address] [facility] [address], [place], [address], 09/27/2024 16:32:23 09/27/19 25 09/27/2024 CMP (MALE ) total bilirubin 0.8 mg/dL 0.2-1. 3 Not Available [facility] [address] [facility] [address], [place], [address], 09/27/2024 16:32:23 09/27/19 25 09/27/2024 CMP (MALE ) albumin 4.2 g/dL 3.5-5. 5 Not Available [facility] [address] [facility] [address], [place], [address], 09/27/2024 16:32:23 09/27/19 25 09/27/2024 CMP (MALE ) globulin 3.5 calc Not Available [facility] [address] [facility] [address], [place], [address], 09/27/2024 16:32:23 09/27/19 25 09/27/2024 CMP (MALE ) AST (SGOT) 38.0 U/L 0.0-46 .0 Not Available [facility] [address] [facility] [address], [place], [address], 09/27/2024 16:32:23 09/27/19 25 09/27/2024 CMP (MALE ) altv (SGPT) 22.0 U/L 13.0-6 9.0 normal Not Available [facility] [address] [facility] [address], [place], [address], 09/27/2024 16:32:23 09/27/19 25 09/27/2024 CMP (MALE ) A/G ratio 1.2 ratio Not Available [facility] [address] [address], [place], [address], 09/27/2024 16:32:23 09/27/19 25 09/27/2024 CMP (MALE ) ALP phos 114.0 U/L 30.0-1 40.0 normal Not Available [facility] [address] [facility] [address], [place], [address], 09/27/2024 16:32:23 09/27/19 25 09/27/2024 CMP (MALE ) calcium 9.4 mg/dL 8.4-10 .5 Not Available [facility] [address] [facility] [address], [place], [address], 09/27/2024 16:32:23 09/27/19 25 09/27/2024 CMP (MALE ) sodium 140.0 mmol/ L 136.0- 145.0 Not Available [facility] [address] [facility] [address], [place], [address], 09/27/2024 16:32:23 09/27/19 25 09/27/2024 CMP (MALE ) potassium 3.9 mmol/ L 3.5-5. 1 Not Available [facility] [address] [facility] [address], [place], [address], 09/27/2024 16:32:23 09/27/19 25 09/27/2024 CMP (MALE ) chloride 107.0 mmol/ L 98.0-1 10.0 normal Not Available [facility] [address] [facility] [address], [place], [address], 09/27/2024 16:32:23 09/27/19 25 09/27/2024 CMP (MALE ) C02 32.0 mmol/ L 22.0-3 1.0 high Not Available [facility] [address] [facility] [address], [place], [address], 09/27/2024 16:32:23 09/27/19 25 09/27/2024 CMP (MALE ) anion gap 1.0 calc Not Available [facility] [address] [facility] [address], [place], [address], 09/27/2024 16:32:23 09/27/19 25 09/27/2024 CMP (MALE ) osmolality 291.3 calc Not Available [facility] [address], [place], [address], 09/27/2024 16:32:23 09/27/19 25 09/28/2024 D-DIM ER, QUANT ITATI VE D-dimer, quantitative 3.12 mcg/m L_feu <0.50 high [place] анна D-dim er level s are assoc iated with DIC, malig collin es, infla mmati on, sepsi s, surge ry, traum a, and pregn [place]. A D-dim er resul t less than 0.5 mcg/m L FEU, in conju nctio n with a non-h igh clini yael pre-t est proba bilit y asses sment model , exclu gato deep vein throm bosis and pulmo nary embol ism. Howev er, since D-dim er value s incre ase with age, the Ameri can Colle ge of Physi cians recom mends an age-a djust ed cut-o ff value in patie nts older than 50. The calcu latio n for an age adjus анна cut-o ff value is age (year s) x 0.01 mcg/m L FEU. For examp le, the cut-o ff for a 70-ye ar-ol d patie nt would be 69 x 0.01 mcg/m L FEU. For addit ional samir sruthi andersen refer to http: //diann navarrete.Que stDia gnost ics.c om/fa q/FAQ 149 (This link is being provi ded for infor casandra nal/e ducat ional purpo ses only. ) Not Available [facility] [address] [place], [address], 09/28/2024 12:53:08 09/27/19 25 09/28/2024 C-NADINE CTIVE PROTE IN C-reactive protein 27.5 mg/L <8.0 high Not Available [facility] [address] [address] [place], [address], 09/28/2024 12:53:09 09/27/19 25 09/28/2024 PSA, TOTAL PSA, total 6.68 NG/mL < or = 4.00 high The total PSA value from this assay syste m is stand ardiz ed again st the WHO stand dayan. The test resul t will be appro ximat jeremy 20% lower when luis red to the equim olar- stand ardiz ed total PSA (Ross man Coult er). Luis rison of seria l PSA resul ts shoul d be inter prete d with this fact in mind. This test was perfo rmed using the [employer] chemi lumin escen t metho d. Value s obtai conchita from diffe rent assay metho ds canno t be used inter adams eably . PSA level s, regar dless of value , shoul d not be inter prete d as absol iliamna evide nce of the prese nce or absen ce of disea se. Not Available [facility] [address] [address] [place], [address], 09/28/2024 12:53:10 09/27/19 25 09/28/2024 B TYPE NATRI URETI C PEPTI DE (BNP) B type natriuretic peptide (BNP) 29 pg/mL <100 normal BNP level s incre ase with age in the gener al popul ation with the highe st value s seen in indiv idual s great er than 75 years of age. Refer ence: J. Am. Tj. Cardi ol. 2002; 40:97 6-982 . Not Available [facility] [address] [address] [place], [address], 09/28/2024 12:53:12 09/27/19 25 09/27/2024 ESR (eryt hrocy te sedim entat ion rate) , blood ESR 41 Not Available [facility] ([facility]) [address] [place], [address], 09/27/2024 15:33:33 06/08/20 24 06/08/2024 colon oscop y, with remov al of tumor , polyp or lesio n (PROC ) No observ ation record ed. [email or web address] [facility] [address] , [place], [address], 06/09/2024 10:56:03 09/27/19 25 elect rocar diogr am No observ ation record ed. [email or web address] [facility] ([facility]) [address] [place], [address], 09/27/2024 15:39:27 09/28/19 25 elect rocar diogr am No observ ation record ed. [email or web address] Not Available 2024 15:34:48 09/28/19 25 09/28/2024 CT, angio gram, chest , w/wo contr ast No observ ation record ed. [email or web address] [facility] [address] [place], [address], 09/29/2024 09:20:13 10/01/19 25 09/28/2024 CT, angio gram, chest , w/wo contr ast No observ ation record ed. [email or web address] [facility] [address] [place], [address], 10/01/2024 12:29:47 10/01/19 25 10/01/2024 juwan lewis sis (PROC ) No observ ation record ed. [email or web address] [facility] [address] [place], [address], 10/04/2024 15:34:59 10/05/19 25 10/05/2024 imagi ng/di agnos tic resul t No observ ation record ed. [address] [place], [address], 10/05/2024 14:35:06 10/06/19 25 10/06/2024 MRI, brain , w/wo contr ast No observ ation record ed. [address] (Scheduling Orders) [address] [place], [address], 10/07/2024 11:15:52 10/08/19 25 09/27/2024 elect rocar diogr am No observ ation record ed. [email or web address] Not Available 10/08 16:26:30 10/08/19 25 10/08/2024 PET-C T, skull base to mid-t high scan No observ ation record ed. [address] (Scheduling Orders) [address] [place], [address], 10/12/2024 09:02:59 10/08/19 25 10/08/2024 PET-C T, skull base to mid-t high scan No observ ation record ed. [address] (Scheduling Orders) [address] [place], [address], 10/12/2024 09:05:34 10/19/19 25 10/18/2024 US, echoc ardio gram, trans thora cic, compl ete, w/ color flow No observ ation record ed. [address] [place], [address], 10/21/2024 10:34:18 Result Notes None recorded. Problems Name Problem SNOMED Code Status Onset Date Resolution Date Notes Provider Name and Address Organization Details Recorded Time Major depressive disorder 471637294 Active 2022 SENG [facility] 08:46:12 Hypercholester olemia 50304317 Active 2022 RADHA MORIN null, [facility] 5 08:45:40 Prostate specific antigen above reference range 809184516 Active 2022 Lázaro Hutchison, [address], [address], [facility] 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 4 13:36:14 Tubular adenoma of colon 968580088 Active 2023 DURAN guzman, [facility] 4 13:36:15 D-dimer above reference range 869025170 Active 2024 Amina guzman [facility] 5 14:44:21 Metastatic malignant neoplasm 440388234 Active 2024 [facility] 11:13:57 Notes:Some problems listed i n Document: #[id number] could not be added to this patient's chart. Please review this document and add these problems to the patient's chart manually as needed. Problem Notes None recorded. Procedures Surgical History Date Name Laterality Status Provider Name and Address Organization Details Recorded Time 10/05/19 25 biopsy completed Amina Carbajal [facility] 10/05/2024 14:33:43 06/08/20 24 Colonoscopy completed DURAN PETIT [facility] 06/25/2024 13:35:47 Stent completed RADHA MORIN [facility] 09/27/2024 08:43:56 Cholecystectomy completed RADHA MORIN [facility] 09/27/2024 08:43:32 Imaging Results Imaging Date Name Status LastModified by Organization Details LastModified Time 06/08/2024 colonoscopy, with removal of tumor, polyp or lesion (PROC) completed [email or web address] [facility] [address] [place], [address], 06/09/2024 10:56:03 09/27/2024 electrocardiogram active [address] ([facility]) [address] [place], [address], 09/27/2024 15:39:27 09/28/2024 electrocardiogram completed [email or web address] Informa tion not available 09/28/2024 15:34:48 09/28/2024 CT, angiogram, chest, w/wo contrast completed [address] [place], [address], 09/29/2024 09:20:13 09/28/2024 CT, angiogram, chest, w/wo contrast completed [address] [place], [address], 10/01/2024 12:29:47 10/01/2024 thoracentesis (PROC) completed [address] [place], [address], 10/04/2024 15:34:59 10/05/2024 imaging/diagnostic result completed [address] [place], [address], 10/05/2024 14:35:06 10/06/2024 MRI, brain, w/wo contrast completed [address] (Scheduling Orders) [address] [place], [address], 10/07/2024 11:15:52 09/27/2024 electrocardiogram completed [email or web address] Informa tion not available 10/08/2024 16:26:30 10/08/2024 PET-CT, skull base to mid-thigh scan completed [address] (Scheduling Orders) [address] [place], [address], 10/12/2024 09:02:59 10/08/2024 PET-CT, skull base to mid-thigh scan completed [address] (Scheduling Orders) [address] [place], [address], 10/12/2024 09:05:34 10/18/2024 US, echocardiogram, transthoracic, complete, w/ color flow completed [address] [place], [address], 10/21/2024 10:34:18 Procedure Notes None recorded. Medical Equipment None Reported. Allergies No known drug allergies Medications Name Sig Start Date Stop Date Status Note LastModified by Organization Details LastModified Time saw palmetto 80 mg capsule daily 06/09 completed 0; Recorded 06/10/20 22 1:34PM by Nancy Aparicio RN, Office Visit; Not Available Not Available Not Available ketoconaz ole 2 % shampoo active Not Available Not Available Not Available promethaz ine 25 mg rectal supposito ry insert ONE SUPPOSIT ORY RECTALLY EVERY 4 TO 6 HOURS NEEDED active Not Available Not Available No t Available prednison e 20 mg tablet active Not Available Not Available Not Available aspirin 81 mg tablet,de layed release TAKE 1 TABLET BY MOUTH EVERY DAY active Not Available Not Available No t Available tramadol 50 mg tablet TAKE 1 TABLET BY MOUTH EVERY 4 HOURS FOR 5 DAYS active Not Available Not Available No t Available ondansetr on 8 mg disintegr ating tablet DISSOLVE 1 TABLET ON THE TONGUE EVERY 8 HOURS FOR NAUSEA active Not Available Not Available No t Available alprazola m 0.5 mg tablet 1-2 tablets prior to procedur e as needed for procedur e anxiety active Not Available Not Available No t Available tamsulosi n 0.4 mg capsule at bedtime 05/24 completed for prostate ; Recorded 01/03/20 22 4:08PM by Lázaro Hutchison DO, Office Visit; Refill Quantity : 90; Capsule; Not Available Not Available Not Available dexametha sone 4 mg tablet TAKE 1 TABLET BY MOUTH THREE TIMES DAILY active Not Available Not Available No t Available docusate sodium 100 mg capsule TAKE ONE CAPSULE BY MOUTH TWICE DAILY active Not Available Not Available No t Available hydrocort isone 2.5 % topical cream active Not Available Not Available Not Available lorazepam 1 mg tablet TAKE 1 TABLET BY MOUTH THREE TIMES DAILY NEEDED FOR ANXIETY OR NAUSEA active Not Available Not Available No t Available ketoconaz ole 2 % topical cream active Not Available Not Available Not Available sertralin e 50 mg tablet TAKE 1 TABLET BY MOUTH EVERY DAY AT BEDTIME 07/09 completed Not Available Not Available Not Available bupropion HCl XL 150 mg 24 hr tablet, extended release TAKE 1 TABLET BY MOUTH ONCE DAILY 05/24 completed Not Available Not Available Not Available alfuzosin ER 10 mg tablet,ex tended release 24 hr TAKE 1 TABLET BY MOUTH EVERY DAY IMMEDIAT JEREMY AFTER THE SAME MEAL active Not Available Not Available No t Available tadalafil 20 mg tablet TAKE 1 TABLET BY MOUTH ONCE DAILY NEEDED active Not Available Not Available No t Available hydrocodo ne 7.5 mg-acetam inophen 325 mg/15 mL oral solution TAKE 15ML BY MOUTH EVERY 6 HOURS NEEDED FOR PAIN active Not Available Not Available No t Available aspirin daily 09/27 completed Recorded 12/21/19 21 2:38PM by Marilin Hamilton, Office Visit; Not Available Not Available Not Available baclofen two times daily, as needed 06/09 completed Recorded 06/10/20 22 1:34PM by Nancy Aparicio RN, Office Visit; Refill Quantity : 30; Tablet; Not Available Not Available Not Available Vitamin D daily active 0; Recorded 06/10/20 22 1:34PM by Nancy Aparicio RN, Office Visit; Not Available Not Available Not Available Eliquis 5 mg tablet Take 1 tablet twice a day by oral route for 30 days. active Not Available Not Available No t Available Vitals Date Recorded Body height Body mass index (BMI) Body weight Oxygen saturation Oxygen saturation in Arterial blood by Pulse oximetry Heart rate Respiratory rate Body temperature Systolic blood pressure Diastolic blood pressure Provider Name and Address Organization Details Last Updated DateTime 4 184.785 cm 25 kg/m2 05691.5 2 g 96 % 96 % 96 /min 18 /min 98.1 [degF] 138 mm[Hg] 62 mm[Hg] [facility] 15:00:35 Date Recorded Body height Body mass index (BMI) Body weight Oxygen saturation Oxygen saturation in Arterial blood by Pulse oximetry Heart rate Respiratory rate Body temperature Systolic blood pressure Diastolic blood pressure Provider Name and Address Organization Details Last Updated DateTime 4 184.785 cm 25.3 kg/m2 22612.3 5 g 96 % 96 % 76 /min 18 /min 97.7 [degF] 138 mm[Hg] 60 mm[Hg] MAGALIE [facility] 4 09:55:16 Date Recorded Body height Body mass index (BMI) Body weight Body temperature Heart rate Oxygen saturation Oxygen saturation in Arterial blood by Pulse oximetry Systolic blood pressure Diastolic blood pressure Provider Name and Address Organization Details Last Updated DateTime 5 184.785 cm 25.8 kg/m2 27689.9 2 g 97.4 [degF] 101 /min 94 % 94 % 124 mm[Hg] 70 mm[Hg] Amina Carbajal [facility] 5 14:13:42 Date Recorded Body height Body mass index (BMI) Body weight Body temperature Heart rate Oxygen saturation Oxygen saturation in Arterial blood by Pulse oximetry Systolic blood pressure Diastolic blood pressure Provider Name and Address Organization Details Last Updated DateTime 5 184.785 cm 25.8 kg/m2 88824.9 2 g 98.3 [degF] 119 /min 98 % 98 % 140 mm[Hg] 60 mm[Hg] RADHA MORIN [facility] 5 12:43:43 Date Recorded Body height Body mass index (BMI) Body weight Body temperature Heart rate Oxygen saturation Oxygen saturation in Arterial blood by Pulse oximetry Systolic blood pressure Diastolic blood pressure Provider Name and Address Organization Details Last Updated DateTime 5 184.785 cm 24.6 kg/m2 31898.5 9 g 98.2 [degF] 91 /min 97 % 97 % 128 mm[Hg] 64 mm[Hg] RADHATRINO MORIN [facility] 13:57:48 Social History Question Answer Notes LastModified by [employer] Details LastModified Time Tobacco Smoking Status Current Every Day Smoker [facility] 04/19/2024 15:57:19 Are You Blind Or Do You Have Difficulty Seeing? No [email or web address] Information not available 04/19/2024 Are You Deaf Or Do You Have Serious Difficulty Hearing? No [email or web address] Information not available 04/19/2024 Do You Or Have You Ever Used Any Nicotine-free Cigarettes, Vape, Or Chewing Tobacco? No [email or web address] Information not available 04/19/2024 What Is Your Current Pack Years? 30ormorepack years [email or web address] Information not available 04/19/2024 At What Age Did You Start Smoking Tobacco? 12 [email or web address] Information not available 04/19/2024 How Much Tobacco Do You Smoke? 1 PPD [email or web address] Information not available 04/19/2024 Do You Use Any Illicit Or Recreational Drugs? No [email or web address] Information not available 04/19/2024 Has Tobacco Cessation Counseling Been Provided? Yes [email or web address] Information not available 04/19/2024 Do You Or Have You Ever Used Any Other Forms Of Tobacco Or Nicotine? No [email or web address] Information not available 04/19/2024 Sex: Unknown Functional Status Question Answer Note LastModified by Organizat ion Details LastModified Time Do you have difficulty walking or climbing stairs? No [email or web address] Information not available 04/19/2024 Are you able to walk? YESWOREST [email or web address] Information not available 04/19/2024 Do you have difficulty doing errands alone? No [email or web address] Information not available 04/19/2024 Are you able to care for yourself? Yes [email or web address] Information not available 04/19/2024 Do you have difficulty dressing or bathing? No [email or web address] Information not available 04/19/2024 Mental Status Question Answer Note LastModified by Organization D etails LastModified Time Do you have difficulty concentrating, remembering or making decisions? No Information no t available 04/19/2024 Family History Relationship Description Onset Age of this Age Resolved Age Notes LastModified by Organization Details LastModified Time Brother Diabetes mellitus marianne Not available 09/27 08:43:09 Brother Myocardial infarction marianne Not available 09/09 08:43:17 Medical History No medical history recorded. Immunizations Vaccine Type Date Status Note Provider Nam e and Address Organization Details Recorded Time COVID-19 vaccine, vector-nr, rS-Ad26, PF, 0.5 mL 1 completed MAGALIE guzman, [facility] 05/24/2024 15:00:56 pneumococcal polysaccharide PPV23 2 completed MAGALIE guzman, [facility] 05/24/2024 15:00:56 Past Encounters Encounter ID Performer Location Encounter Start Date Encounter Closed Date Diagnosis/Indication Diagnosis SNOMED-CT Code Diagnosis ICD10 Code Diagnosis Note [id number] Lázaro Hutchison DO [facility] ([facility]) [address] [place] [phone] 5 06/09/2023 14:08:13 06/09/2023 18:56:45 Active or passive immunization 657774830 Z23 Adult heal th examination 285811181 Z00.01 Fatigue 61396208 R53.83 Major depr essive disorder 996391546 F32.9 Erectile dysfunction 860 260870 F52.21 [id number] Lázaro Hutchison DO [facility] ([facility]) [address] [place] [address] 07/09/2023 12:05:12 07/09/2023 14:44:58 Hypercholesterolemia 11676866 E78.00 can't tolerate statins Prostate s pecific antigen above reference range 131362367 R97.20 psa has been elevated for years; better this year; does not want another biopsy Major depr essive disorder 202561497 F32.9 [id number] Lázaro Hutchison DO [facility] ([facility]) [address] [place] [address] 04/19/2024 15:45:53 04/19/2024 16:50:35 Hypercholesterolemia 29483451 E78.00 can't tolerate statins Prostate s pecific antigen above reference range 094422097 R97.20 psa has been elevated for years; better this year; does not want another biopsy Left lower quadrant pain 623238869 R10.32 [id number] Zeke Mclean MD [facility] ([facility]) [address] [place] [phone] 05/24/2024 14:52:13 05/24/2024 16:09:45 Screening for malignant neoplasm of colon 636609527 Z12.11 [id number] Zeke Mclean MD [facility] ([facility]) [address] [place] [address] 06/28/2024 09:34:29 06/28/2024 15:49:43 Tubular adenoma of colon 043850843 D12.6 Tubulovill ous adenoma of rectum 134370599 D12.8 [id number] Cinthya Barrera MD [facility] ([facility]) [address] [place] [phone] 5 09/27/2024 13:51:34 09/28/2024 10:52:40 Hypercholesterolemia 06051442 E78.00 History of myocardial infarction 510964004 I25.2 History of placement of stent for coronary artery disease 755795042 Z95.5 Pleural effusion 2785130 8 J90 Dyspnea on exertion 6084 5006 R06.09 Orthopnea 90551972 R06.0 1 Tachycardia 0797913 R00. 0 Prostate s pecific antigen above reference range 992796791 R97.20 urology note from [facility] PSAFirst evaluated July 2021 with increasing PSA. 19.2 on 07/31/2021 . Previously <10.0.Larg e but benign feeling DAVID.No obvious inflammato ry symptoms.D iscussed biopsy versus observatio n and after detailed discussion elected biopsy.Neg ative TRUSP/biop sy August 2021.BPH/O BSTRUCTION Treated with alpha blockers. Some complaints of retrograde ejaculatio n but improvemen t in his voiding.Sw itch from TAMSULOSIN to ALFUZOSIN to see if it would help.ERECT ILE DYSFUNCTIO NOn tadalafil Screening for malignant neoplasm of prostate 490707385 Z12.5 Screening for malignant neoplasm of respiratory tract 526567845 Z12.2 cta chest vs ldhct d dimer pending [id number] DAYLIN ALLRED [facility] ([facility]) [address] [place] [phone] 09/29/2024 12:37:53 09/29/2024 15:58:59 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 49499080 C79.51 I spent greater than 35 mins in counseling and answering questions, looking over his CT scan with he and his , discussing next steps regarding the CT findings of likely malignancy , and atrial fibrillati on., arranging procedure and specialty care we discussed anticoagul ation/vs waiting until the procedure is done if it can be done urgently. all questions were answered to the patient's satisfacti on. the patient was given the opportunit y to ask additional questions and acknowledg ed he had no additional questions at this time and will call if any questions arise. will need diagnostic and therapeuti c thoracente sis with rib bx vs bronchosco py. Metastatic malignant neoplasm 794167346 C79.9 Memory impairment 686964 006 R41.3 Atrial fibrillation 4943 6004 I48.91 withholdin g anticoagul ation after discussion of risks and benefits of such with Maxwell and his . they agree they would like to see the timing of the above procedures first and not go on the med and have that delay getting him help urgently. Tubular ad enoma of colon 955907380 D12.6 pathology low grade for malignancy Tubulovill ous adenoma of rectum 296259225 D12.8 Pleural effusion 5435342 8 J90 [id number] Cinthya Barrera MD [facility] ([facility]) [address] [place] [address] 10/06/2024 13:51:30 10/06/2024 14:30:15 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 26287637 C79.51 cytology and cell counts reviewed.e xudative fluidno malignant cellsrib bx pendingsti ll sx needs to be considered for bronch and pleurodesi s Metastatic malignant neoplasm 357590062 C79.9 Memory impairment 745160 006 R41.3 Atrial fibrillation 4943 6004 I48.91 Tubular ad enoma of colon 553019183 D12.6 pathology low grade for malignancy Tubulovill ous adenoma of rectum 001609757 D12.8 Pleural effusion 0544956 8 J90 Anxiety 40988367 F41.9 Health Concerns Section Related Observation LastModified by Organization Detai ls LastModified Time None Recorded Concern Status LastModified by Organization Details LastModified Time None Recorded Advance Directives Directive None Recorded Payers Encounter Date Sequence Insurance Name Policy Number Policy Starks Covered Member ID Starks Member ID Guarantor Name 05/24/2024 1 [place]: S Maxwell Morris [id number] Maxwell Morris 05/24/2024 2 [employer] (MEDICARE SUPPLEMENT) Maxwell Morris [id number] Maxwell Morris 06/28/2024 1 MEDICARE [place]: [facility] Maxwell Morris [id number] Maxwell Morris 06/28/2024 2 [employer] (MEDICARE SUPPLEMENT) Maxwell Morris [id number] Maxwell Morris 09/27/2024 1 MEDICARE [place]: [facility] Maxwell Morris [id number] Maxwell Morris 09/27/2024 2 [employer] (MEDICARE SUPPLEMENT) Maxwell Morris [id number] Maxwell Morris 09/29/2024 1 MEDICARE [place]: [facility] Maxwell Morris [id number] Maxwell Morris 09/29/2024 2 [employer] (MEDICARE SUPPLEMENT) Maxwell Morris [id number] Maxwell Morris 10/06/2024 1 MEDICARE [place]: [facility] Maxwell Morris [id number] Maxwell Morris 10/06/2024 2 [employer] (MEDICARE SUPPLEMENT) Maxwell Morris [id number] Maxwell Morris Notes Date Note Type Note Provider Name and Address Organization Details Recorded Time 05/24/2024 text/html Colonoscopy ScreeningReported bypatient.GI Symptoms:no abdominal pain; no diarrhea; no constipation; no recent change in bowel movements; no change in the stool; no color change in stool; no rectal bleeding Associated Symptoms:normal appetite; no fever; no nausea; no vomiting Context:no history of colon polyps Family History:no colon cancer The patient presents today at the request of {{ Dr Hutchison#}} for evaluation and discussion of colonoscopy for colon cancer screening. The patient denies any recent abdominal pain, persistent diarrhea, persistent constipation, bloody or dark tarry stools, or mucusy stools. Last Colon Cancer screening: {{ Dr Laura #}} Problems with anesthesia in the past: NONE Family History of Colon cancers: NONE Blood Thinners: ASA Co-morbidities: Zeke Mclean MD [address] [place] [address], [phone], [facility] 05/26/2024 17:24:26 06/28/2024 text/html Colonoscopy ScreeningReported bypatient.GI Symptoms:no recent change in bowel movements; no change in the stool; no color change in stool; no rectal bleeding;abdominal pain(left side);diarrhea;constip ation Associated Symptoms:normal appetite; no fever; no nausea; no vomiting Context:no history of colon polyps Family History:no colon cancer Follow up after colonoscopy on 06/08/24 Zeke Mclean MD [address] [place] [address], [phone], [facility] 07/24/2024 11:03:31 09/27/2024 text/html Generic HPI TemplateReported bypatient.Notes:Pt is here for a hospital f/u. He presented to the ER for right-sided chest pain for 3-7 days due to coughing. They gave him prednisone, benzonatate, and ketorolac. He has taken these meds, but has not finished his prednisone script because he has trouble remembering his medications. His pain is improved, unless he coughs. Cinthya Barrera MD [address] [place] [address], [phone], [facility] 09/29/2024 09:12:49 09/29/2024 text/html [facility] [address] [facility], [place] [address]AV Scan ReportSignedPatient: Maxwell Morris #: [id number]: [id number]#:[id number]/Sex: 74 / MADM Date: 09/28/24Loc: RADRoom/Bed:Attending Dr: Cinthya Barrera MDOrdering Provider/Ordering MD: Cinthya Barrera MDDate of Service: 09/28/24Procedure(s): CT angio chest PE protcl [id number] Number(s): [id number] Number: [id number]: [id number] OF THE CHEST WITH PULMONARY EMBOLISM PROTOCOLTECHNIQUE: High-resolution contrast enhanced CTA of the chest with coronal and sagittal reformatted images with pulmonary embolism protocol. MIP images are also reviewed.CLINICAL INFORMATION: Abnormal Coagulation ProfileCOMPARISON: None.DLP: [facility] use at least one of these dose optimization techniques: automated exposure control; mA and/or kV adjustment per patient size (includes targeted exams where dose is matched to clinical indication); or iterative reconstruction.FINDING S:Proximal main pulmonary arteries are normal. No evidence of pulmonary embolus.Moderate to large LEFT pleural effusion. Compressive atelectasis withconsolidation LEFT lower lobe and lingula. Bulky mediastinal peribronchial andsubcarinal lymphadenopathy. LEFT greater than RIGHT hilar lymphadenopathy.Findin gs suspicious for neoplasm. Recommend bronchoscopy in furtherevaluation. Suspected LEFT hilar mass measuring 3.7 x 3.7 cm.Hazy infiltrates in the LEFT upper lobe. The RIGHT lung is well aerated. SlightRIGHT basilar atelectasis. 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 LEFT to RIGHT moderate narrowing of the trachea thoracic inlet with LEFT RIGHT shift. Thyroid mass measures 5.8 x 4.6 cm. Associated peripheral calcification.No axillary lymphadenopathy. Cholecystectomy clips. Partially evaluated bilateral adrenal nodules the largest on the RIGHT measuring 2.4 cmACCESSION #: [id number] CT/CT angio chest PE protcl [id number]:1. No evidence of pulmonary embolus.2. Moderate to large LEFT pleural effusion.3. Bulky mediastinal peribronchial and subcarinal lymphadenopathy. LEFT greater than RIGHT hilar lymphadenopathy.4. Compressive atelectasis with consolidation LEFT lower lobe and lingula. Findings suspicious for neoplasm. Recommend bronchoscopy further evaluation. Suspected LEFT hilar mass measuring 3.7 x 3.7 cm.5. Destructive expansile anterior RIGHT third rib lesion suspicious for metastasis6. 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 Moderate narrowing of the trachea at the thoracic inlet with LEFT to RIGHT shift. Thyroid mass measures 5.8 x 4.6 cm.7. Partially evaluated bilateral adrenal nodules the largest on the RIGHT measuring 2.4 cm. Metastatic disease not excluded.Dictated By:Omar Machuca MDSigned By:Omar Machuca MDSigned Date/Time:09/28/24 1630DD/ 1604 Cinthya Barrera MD [address] [place] [address], [phone], [facility], LSheliaLValentin 09/29/2024 14:03:54 09/29/2024 text/html jr chest pain hpiReported bypatient.Location:rig side, radiates under the right arm Quality:sharp Severity:very limiting Onset/Timing:started 4weeks ago Context:coughing Aggravating Factors:coughing Associated Symptoms:no associated palpitations;shortness of breath;fatigue;nocturn al episodes(patient reports if he lays flat he can't breathe, he has been having to sleep in his recliner) Cinthya Barrera MD [address] [place] [address], [phone], [facility] 09/29/2024 14:03:54 10/06/2024 text/html jr chest pain hpiReported bypatient.Location:rig ht side, radiates under the right arm Quality:sharp Severity:very limiting Onset/Timing:started 4weeks ago Aggravating Factors:coughing Associated Symptoms:no associated palpitations;shortness of breath;fatigue;nocturn al episodes(patient reports if he lays flat he can't breathe, he has been having to sleep in his recliner); loss of appetiteNotes:pt would like to see about getting some medication for his pain. Pt reports that he had tramadol from the ER and that worked well for him Patient is here to f/u on testing that has been done. Thoracentesis and rib bx Patient is scheduled for an MRI today and a PET scan on Friday his reports he is breathing better but it is still abnormal Cinthya Barrera MD [address] [place] [address], [phone], [facility], [place] 10/06/2024 14:21:49
--- OUTSIDE RECORDS SUMMARY | 2024-10-25 11:04 | XMS_ITS | Continuity of Care Document ---
Author Organization [facility] Airam M[facility], [facility] ([facility]) Address [address] [place] [address] Care Team Providers Care Handmade Tile Artist Name Role Phone CINTHYA MCCORMICK Primary Care Provider [phone] Assessment Encounter Date Assessment Date Assessment LastModified by Organization Details LastModified Time 10/06/2024 10/06/2024 the patient confirms he has [...] patient may decide to forego next colonoscopy. [email or web address] Not available 10/06/2024 14:13:03 Plan of Treatment Reminders Order Date Submit Date Provider Last Modified By Organization Details Last Modified Time Details Appointments NEW PATIENT 2024 01:45P M Cinthya Mccormick MD Not available Not available Not available Lab None recorded. Referral intervent ional radiologi st referral 2024 025 [email or web address] [facility], [address] [place], [address], 10/07/2024 18:28:26 pulmonolo gist referral [email or web address] [facility] [place], [address], [address], [place], [address], 10/18/2024 10:18:02 Procedures None recorded. Surgeries None recorded. Imaging PET-CT, skull base to mid-thigh scan [address] (Scheduling Orders), [address] [place], [address], 10/07/2024 10:07:55 MRI, brain, w/wo contrast 2024 025 [facility] (Scheduling Orders), [address] [place], [address], 10/07/2024 10:47:35 Medication Orders tramadol 50 mg tablet 2024 025 [facility] #[id number], [address], [place], [place], [id number], 10/06/2024 14:20:03 Eliquis 5 mg tablet 2024 025 [facility] #[id number], [address], [place], [place], [id number], 10/06/2024 14:21:36 alprazola m 0.5 mg tablet 2024 025 [facility] #[id number], [address], [address], 10/06/2024 14:18:41 Patient TargetsNo targets recorded. Patient InstructionsNo instructions recorded. 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 [email or web address] [facility] ([facility]) [address] [place], [address], 09/27/2024 15:39:27 09/28/19 elect rocar diogr am No observ ation record ed. [email or web address] Not Available 2024 15:34:48 09/28/19 25 09/28/2024 CT, angio gram, chest , w/wo contr ast No observ ation record ed. [address] [place], [address], 09/29/2024 09:20:13 10/01/19 25 09/28/2024 CT, angio gram, chest , w/wo contr ast No observ ation record ed. [address] [place], [address], 10/01/2024 12:29:47 10/01/19 25 10/01/2024 thorhero lewis sis (PROC ) No observ ation record ed. [address] [place], [address], 10/04/2024 15:34:59 10/05/19 25 10/05/2024 imagi ng/di agnos tic resul t No observ ation record ed. [address] [place], [address], 10/05/2024 14:35:06 10/06/19 25 10/06/2024 MRI, brain , w/wo contr ast No observ ation record ed. [address] (Scheduling Orders) [address] [place], [address], 10/07/2024 11:15:52 10/08/19 25 09/27/2024 elect rocar diogr am No observ ation record ed. [email or web address] Not Available 10/08 16:26:30 10/08/19 25 10/08/2024 PET-C T, skull base to mid-t high scan No observ ation record ed. [address] (Scheduling Orders) [address] [place], [address], 10/12/2024 09:02:59 10/08/19 25 10/08/2024 PET-C T, skull base to mid-t high scan No observ ation record ed. [address] (Scheduling Orders) [address] [place], [address], 10/12/2024 09:05:34 10/19/19 25 10/18/2024 US, echoc ardio gram, trans thora cic, compl ete, w/ color flow No observ ation record ed. [address] [place], [address], 10/21/2024 10:34:18 Result Notes None recorded. Problems Name Problem SNOMED Code Status Onset Date Resolution Date Notes Provider Name and Address Organization Details Recorded Time Major depressive disorder 059412992 Active 2022 RADHA guzman [facility] 5 08:46:12 Hypercholester olemia 02308576 Active 2022 RADHA guzman [facility] 5 08:45:40 Prostate specific antigen above reference range 546867410 Active 2022 Lázaro Hutchison, [address], [address] , [facility] 3 12:37:43 Tubulovillous adenoma of rectum 985892174 Active 2023 DURAN guzman [facility] 4 13:36:14 Tubular adenoma of colon 764052681 Active 2023 DURAN guzman [facility] 4 13:36:15 D-dimer above reference range 956966659 Active 2024 Amina guzman [facility] LAnge 5 14:44:21 Metastatic malignant neoplasm 038360232 Active 2024 RADHA guzman [facility] LSheliaLValentin 5 11:13:57 Notes:Some problems listed i n Document: #[id number] could not be added to this patient's chart. Please review this document and add these problems to the patient's chart manually as needed. Problem Notes None recorded. Procedures Surgical History Date Name Laterality Status Provider Name and Address Organization Details Recorded Time 10/05/19 25 biopsy completed Amina Carbajal [facility] LS[facility]iaLS[facility]CS[facility]ia 10/05/2024 14:33:43 06/08/20 24 Colonoscopy completed DURAN PETIT [facility], FrancoisLValentin 06/25/2024 13:35:47 Stent completed RADHA PATIENCE [facility] LSheliaLSheliaCShelia 09/27/2024 08:43:56 Cholecystectomy completed RADHA PATIENCE [facility] L.LSheliaCShelia 09/27/2024 08:43:32 Imaging Results None recorded. Procedure Notes None recorded. Medical Equipment None [...] Updated DateTime 5 184.785 cm 24.6 kg/m2 29783.5 9 g 98.2 [degF] 91 /min 97 % 97 % 128 mm[Hg] 64 mm[Hg] RADHA MORIN [facility] 5 13:57:48 Social History Question Answer Notes LastModified by Twigmore Details LastModified Time Tobacco Smoking Status Current Every [facility] 04/19/2024 15:57:19 Are You Blind Or Do You Have Difficulty Seeing? No [email or web address] Information not available 04/19/2024 Are You Deaf Or Do You Have Serious Difficulty Hearing? No [email or web address] Information not available 04/19/2024 Do You Or Have You Ever Used Any Nicotine-free Cigarettes, Vape, Or Chewing Tobacco? No [email or web address] Information not available 04/19/2024 What Is Your Current Pack Years? 30ormorepack years [email or web address] Information not available 04/19/2024 At What Age Did You Start Smoking Tobacco? 12 [email or web address] Information not available 04/19/2024 How Much Tobacco Do You Smoke? 1 PPD [email or web address] Information not available 04/19/2024 Do You Use Any Illicit Or Recreational Drugs? No [email or web address] Information not available 04/19/2024 Has Tobacco Cessation Counseling Been Provided? Yes Information not available 04/19/2024 Do You Or Have You Ever Used Any Other Forms Of Tobacco Or Nicotine? No Information not available 04/19/2024 Sex: Unknown Functional Status Question Answer Note LastModified by Twigmore Details LastModified Time Do you have difficulty walking or climbing stairs? No [email or web address] Information not available 04/19/2024 Are you able to walk? YESWOREST [email or web address] Information not available 04/19/2024 Do you have difficulty doing errands alone? No [email or web address] Information not available 04/19/2024 Are you able to care for yourself? Yes [email or web address] Information not available 04/19/2024 Do you have difficulty dressing or bathing? No [email or web address] Information not available 04/19/2024 Mental Status Question Answer Note LastModified by Organization D etails LastModified Time Do you have difficulty concentrating, remembering or making decisions? No [email or web address] Information no t available 04/19/2024 Family History Relationship Description Onset Age of this Age Resolved Age Notes LastModified by Organization Details LastModified Time Brother Diabetes mellitus Not available 09/27 08:43:09 Brother Myocardial infarction [email or web address] Not available 09/09 08:43:17 Medical History No medical history recorded. Immunizations Vaccine Type Date Status Note Provider Nam e and Address Organization Details Recorded Time COVID-19 vaccine, vector-nr, rS-Ad26, PF, 0.5 mL 1 completed MAGALIE guzman [facility] 05/24/2024 15:00:56 pneumococcal polysaccharide PPV23 2 completed MAGALIE guzman [facility] 05/24/2024 15:00:56 Past Encounters Encounter ID Performer Location Encounter Start Date Encounter Closed Date Diagnosis/Indication Diagnosis SNOMED-CT Code Diagnosis ICD10 Code Diagnosis Note [id number] Cinthya Mccormick MD [facility] ([facility]) [address] [place] [address] 09/27/2024 13:51:34 09/28/2024 10:52:40 Hypercholesterolemia 11811156 E78.00 History of myocardial infarction 962758616 I25.2 History of placement of stent for coronary artery disease 443428619 Z95.5 Pleural effusion 1898088 8 J90 Dyspnea on exertion 6084 5006 R06.09 Orthopnea 73820197 R06.0 1 Tachycardia 2238441 R00. 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 Metastatic malignant neoplasm 894499866 C79.9 Memory impairment 976444 006 R41.3 Atrial fibrillation 4943 6004 I48.91 withholdin g anticoagul ation after discussion of risks and benefits of such with Maxwell and his . they agree they would like to see the timing of the above procedures first and not go on the med and have that delay getting him help urgently. 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 55303770 C79.51 cytology and cell counts reviewed.e xudative fluidno malignant cellsrib bx pendingsti ll sx needs to be considered for bronch and pleurodesi s Metastatic malignant neoplasm 570569674 C79.9 Memory impairment 363762 006 R41.3 Atrial fibrillation 4943 6004 I48.91 Tubular ad enoma of colon 776049770 D12.6 pathology low grade for malignancy Tubulovill ous adenoma of rectum 600306014 D12.8 Pleural effusion 2033241 8 J90 Anxiety 27150871 F41.9 Health Concerns Section Related Observation LastModified by Organization Detai ls LastModified Time None Recorded Concern Status LastModified by Organization Details LastModified Time None Recorded Payers Encounter Date Sequence Insurance Name Policy Number Policy Starks Covered Member ID Starks Member ID Guarantor Name 10/06/2024 1 [place] Maxwell Morris [id number] Maxwell Morris 10/06/2024 2 [employer] (MEDICARE SUPPLEMENT) Maxwell Morris [id number] Maxwell Morris Notes Date Note Type Note Provider Name and Address Organization Details Recorded Time 10/06/2024 text/html jr chest pain hpiReported bypatient.Location: right side, radiates under the right arm Quality:sharp Severity:very limiting Onset/Timing:starte d 4weeks ago Aggravating Factors:coughing Associated Symptoms:no associated palpitations;shortn ess of breath;fatigue;noct urnal episodes(patient reports if he lays flat he [...] better but it is still abnormal Cinthya Mccormick MD [address] [place], [address], [facility], Airam 10/06/2024 14:21:49
--- OUTSIDE RECORDS SUMMARY | 2024-10-25 11:04 | XMS_ITS | Encounter Summary ---
Author Organization [employer] Address 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
--- OUTSIDE RECORDS SUMMARY | 2024-10-25 11:04 | XMS_ITS | Patient Health Record ---
Author Organization [facility] Address [address] [place] [address] Care Team Providers Care Cafeteria Table Attendant Name Role Phone Lázaro Hutchison Primary Care Provider Yasmeen NATHANAEL Shaikh Unavailable [phone] Allergies No Known Allergies Results Component Value Reference Range Notes Urinalysis, Routine Reviewed date:02/23/2024 04:03:25 PM Interpretation: Performing Lab: Notes/Report: Urine-Color yellow Appearance slightly cloudy Glucose - Bilirubin - Ketones - Specific Veblen 1.025 Occult Blood - pH 6.0 Urine Protein trace Urobilinogen,Semi-Qn - Nitrite, Urine - WBC Esterase trace Urinalysis Gross Exam - Reason For Referral No Information Medications Medication SIG (Take, Route, Fr equency, Duration) Notes Start Date End Date Status Aspirin 81 Active Tadalafil Active Multivitamin Active Alfuzosin HCl ER Act mirna Alfuzosin HCl ER 10 MG TAKE 1 TABLET BY MOUTH EVERY DAY IMMEDIATELY AFTER THE SAME MEAL for 90 Active Social History Tobacco Use: Social History Observation Description Date Details (start date - stop date) Current Smoker NA - NA Tobacco Use/Smoking Question Answer Notes Tobacco use: current smoker How many cigarettes a day do you smoke? 11-20 Problems Problem Type SNOMED Code ICD Code Onset Dates Problem Status W/U Status Risk Notes Problem Lower urinary tract symptoms due to benign prostatic hypertrophy (86577002614503) Benign prostatic hyperplasia with lower urinary tract symptoms (N40.1) Active confirmed Problem ED (erectile dysfunction) (N52.9) Active confirmed Problem Elevated PSA (086090320) Elevated PSA (R97.20) Active confirmed Vital Signs Heart Rate 76 /min 02/23/2024 Temperature 97.9 degrees Fahrenheit 02/23/2024 Blood pressure diastolic 68 mm Hg 02/23/2024 Height-cm 185.42 cm 02/23/2024 Weight-kg 86.18 kg 02/23/2024 Height 73 in 02/23/2024 Blood pressure systolic 144 mm Hg 02/23/2024 Weight 190 lbs 02/23/2024 BMI 25.06 kg/m2 02/23/2024 Procedures Procedure Date Ordered Date Performed Result Body Sit e Bladder Scan 02/23/2024 02/23/2024 N/A Encounters Encounter Location Date Provider Diagnosis [facility] [address] [place] [address] 12/26/2023 NATHANAEL NATHAN Elevated PSA R97.20 [facility] [address] [place] [address] 02/23/2024 NATHANAEL NATHAN Benign prostatic hyperplasia with lower urinary tract symptoms N40.1 ; ED (erectile dysfunction) N52.9 and Elevated PSA R97.20 Assessments Encounter Date Diagnosis (ICD Code) Assessment Notes Treatment Notes Treatment Clinical Notes Section Notes 12/26/2023 Elevated PSA (ICD-10 - R97.20) 02/23/2024 Benign prostatic hyperplasia with lower urinary tract symptoms (ICD-10 - N40.1) 73-yo male with BPH/LUTS, ED and elevated PSA. IPSS 13. PVR 6cc. Discussed results of PSA in consultation. PSA is remaining stable with h/o negative biospy in 2020. We discussed rationale of transitioning to annual visit for PSA review. Pt reports he doesn't always take cialis daily but it is effective when he does. We will cont alfuzosin and cialis and plan to see pt in 1 year. All questions that were asked were answered and pt satisfied w plan. Plan: -Cont Alfuzosin and Cialis 5mg Daily and 20mg PRN -F/U in 1 year for PSA surveillance, IPSS, and PVR -RTC or call sooner with concerns Beverley Blakely LPN am scribing for, and in the presence of Dr. Nathanael Nathan. Nathanael Blakely MD attest that I personally performed the services scribed in this documentation by Jeremie Jones LPN, and they are both accurate and complete. 02/23/2024 ED (erectile dysfunction) (ICD-10 - N52.9) 73-yo male with BPH/LUTS, ED and elevated PSA. IPSS 13. PVR 6cc. Discussed results of PSA in consultation. PSA is remaining stable with h/o negative biospy in 2020. We discussed rationale of transitioning to annual visit for PSA review. Pt reports he doesn't always take cialis daily but it is effective when he does. We will cont alfuzosin and cialis and plan to see pt in 1 year. All questions that were asked were answered and pt satisfied w plan. Plan: -Cont Alfuzosin and Cialis 5mg Daily and 20mg PRN -F/U in 1 year for PSA surveillance, IPSS, and PVR -RTC or call sooner with concerns Beverley Blakely LPN am scribing for, and in the presence of Dr. Nathanael Nathan. Nathanael Blakely MD attest that I personally performed the services scribed in this documentation by Jeremie Jones LPN, and they are both accurate and complete. 02/23/2024 Elevated PSA (ICD-10 - R97.20) 73-yo male with BPH/LUTS, ED and elevated PSA. IPSS 13. PVR 6cc. Discussed results of PSA in consultation. PSA is remaining stable with h/o negative biospy in 2020. We discussed rationale of transitioning to annual visit for PSA review. Pt reports he doesn't always take cialis daily but it is effective when he does. We will cont alfuzosin and cialis and plan to see pt in 1 year. All questions that were asked were answered and pt satisfied w plan. Plan: -Cont Alfuzosin and Cialis 5mg Daily and 20mg PRN -F/U in 1 year for PSA surveillance, IPSS, and PVR -RTC or call sooner with concerns Beverley Blakely LPN am scribing for, and in the presence of Dr. Nathanael Nathan. Nathanael Blakely MD attest that I personally performed the services scribed in this documentation by Jeremie Jones LPN, and they are both accurate and complete. Plan Of Treatment Pending Test Test Name Order Date PSA, total (cpt 53405) 12/26/2023 Next Appt Details Provider Name:NATHANAEL Hodge, 02/28/2025 01:15:00 PM, [address] [place], [address], Insurance Providers Payer Name Payer Address Payer Phone Subscriber Number Group Number Insured Name Patient Relationship to Insured Coverage Start Date Coverage End Date [place] [address] [place] [id number] Maxwell Hays Self - patient is the insured [place] [employer] [address] [employer] [place], [place] [id number] Maxwell Hays Self - patient is the insured Medical (General) History Medical History History ICD Code benign prostatic hyperplasia ED Surgical History Surgery Date(Month/Year) Carotid stent x 2 2010 cholecystectomy 2021 Hospitalization History Reason Date(Month/Year) surgery
--- OUTSIDE RECORDS SUMMARY | 2024-10-25 11:04 | XMS_ITS ---
Author Organization [facility] Address [address] [place] [address] Care Team Providers Care General Surgery Physician Assistant Name Role Phone Lázaro Hutchison Primary Care Provider NATHANAEL Martinez [phone] REASON FOR VISIT Other Encounters Encounter Location Date Provider Diagnosis [facility] [address] [place] [address] 12/26/2023 NATHANAEL ORTIZ Elevated PSA R97.20 Assessments Encounter Date Diagnosis (ICD Code) Assessment Notes Treatment Notes Treatment Clinical Notes Section Notes 12/26/2023 Elevated PSA (ICD-10 - R97.20) Plan Of Treatment Pending Test Test Name Order Date PSA, total (cpt 74312) 12/26/2023 Next Appt Details Provider Name:NATHANAEL Hodge, 02/28/2025 01:15:00 PM, [address] [place], [address], Progress Notes * Jesse CHANDLEROB:1950 ( 73 yo M)Acc No.[id number]:12/26/2023 Patient:?Maxwell CHANDLER :1950???Age:73 Y???Sex:Male Address:[address] [place] [address] [address], [place] [address] Subjective: * Chief Complaints: * ???Other * Medical History:? * Surgical History:? * Hospitalization/Major Diagno stic Procedure:? * Medications:? Objective: * Vitals:? * Physical Examination:? Assessment: * Assessment: 1.?Elevated PSA - R97.20? Plan: * Treatment: * Procedure Codes:?09989 ASSAY OF PSA, TOTAL * true * Date:? Generated for Chayo keen/Power/Kayitting on:?10/25/2024 11:04 AM BLADE BONER
--- OUTSIDE RECORDS SUMMARY | 2024-10-25 11:04 | XMS_ITS | Clinical Summary ---
Author Organization [facility] Address [address] [place] [address] Care Team Providers Care Carbide Tool Maker Name Role Phone Unavailable Primary Care Provider Unavailabl e Medications alfuzosin (UROXATRAL) 10 mg Extended Release 24 hour tablet Take 10 mg by mouth daily. Active ALPRAZolam (XANAX) 0.5 mg tablet Take 0.5 mg by mouth 3 times daily as needed. 10/06/19 25 Active Eliquis 5 mg tablet Take 5 mg by mouth 2 times daily. 10/06/19 25 Active aspirin (ECOTRIN EC) 81 mg Tablet, Delayed Release (E.C.) Take 1 Tablet by mouth daily. 09/28/19 25 Active benzonatate (TESSALON) 100 mg capsule Take 100 mg by mouth 3 times daily as needed. 08/28/20 24 Active dexAMETHasone (DECADRON) 4 mg tablet Take 1 Tablet by mouth 3 times daily. 10/07/19 25 Active hydrocortisone (HYTONE) 2.5 % Cream Apply to affected area see administration instructions. 07/26/20 24 Active ketoconazole (NIZORAL) 2 % Cream Apply to affected area see administration instructions. 07/26/20 24 Active ketoconazole (NIZORAL) 2 % Shampoo Apply to affected area daily. 07/26/20 24 Active ketorolac tromethamine (TORADOL) 10 mg tablet Take 10 mg by mouth every 8 hours as needed for Pain. 08/28/20 24 Active predniSONE (DELTASONE) 20 mg tablet Take 2 Tablets by mouth daily. 08/28/20 24 Active traMADoL (ULTRAM) 50 mg tablet Take 50 mg by mouth every 6 hours as needed. 10/06/19 25 Active Active Problems No known active problems Encounters Date Type Department Care Team Description 10/19/2024 External Device Data ST[facility] ABSTRACTION Provider, Abstract 10/19/2024 External Device Data [facility] ABSTRACTION Provider, Abstract 10/19/2024 External Device Data [facility] ABSTRACTION Provider, Abstract 10/13/2024 2:00 PM COMPUTER SYSTEMS MANAGER Office Visit [facility] Pulmonology [address] [place] [address] Fatou Garza MD Lung mass (Primary Dx); Pleural effusion; Tobacco dependence from Last 3 Months Social History Tobacco Use Types Packs/Day Years Used Date Smoking Tobacco: Every Day Cigarettes 0.3 61.6 Started: 1964 Passive Smoke Exposure: Past Smokeless Tobacco: Never Tobacco Cessation:Ready to Q uit: Not Asked; Counseling Given: Not Answered Sex and Gender Information Value Date Recorded Sex Assigned at Not on file Legal 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 Gender Identity Not on file Sexual Orientation Not on file Last Filed Vital Signs Vital Sign Reading Time Taken Comments Blood Pressure 102/52 10/13/2024 2:01 PM COMPUTER SYSTEMS MANAGER Pulse 112 10/13/2024 2:01 PM COMPUTER SYSTEMS MANAGER Temperature - - Respiratory Rate - - Oxygen Saturation 97% 10/13/2024 2:01 PM COMPUTER SYSTEMS MANAGER Inhaled Oxygen Concentration - - Weight 80.7 kg (178 lb) 10/13/2024 2:01 PM COMPUTER SYSTEMS MANAGER Height 185.4 cm (6' 1 ) 10/13/2024 2:01 PM COMPUTER SYSTEMS MANAGER Body Mass Index 23.48 10/13/2024 2:01 PM COMPUTER SYSTEMS MANAGER Plan of Treatment Health Maintenance Due Date Last Done Comments DTAP/TDAP/TD VACCINES (1 - Tdap) 1968 FIT-DNA Q 3 years 1994 FIT/FOBT Q 1 year 1994 Flex Sig/CT Colonography Q 5 years 1994 ZOSTER VACCINE (1 of 2) 1999 Abdominal Aortic Aneurysm (AAA) Screening 2014 PNEUMOCOCCAL VACCINE 65+ YEARS (2 of 2 - PCV) 06/05/20 23 06/05/2022 RSV VACCINE (60+ or ) (1 - 1-dose 75+ series) 2024 INFLUENZA VACCINE (#1) 2024 COVID-19 Vaccine (2 - season) 2024 COLORECTAL SCREENING 06/08/2034 06/08/2024 Colorectal Cancer Screening 06/08/2034
--- OUTSIDE RECORDS SUMMARY | 2024-10-25 11:04 | XMS_ITS | Encounter Summary ---
Author Organization [facility] Address 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
--- OUTSIDE RECORDS SUMMARY | 2024-10-25 11:04 | XMS_ITS | Encounter Summary ---
Author Organization [facility] Address 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 Name Role Phone Unavailable Primary Care Provider Unavailabl e Reason for Visit * Reason Comments Consult Hilar lymphadenopath y Encounter Details Date Type Department Care Team (Late st Contact Info) Description 10/13/2024 2:00 PM KNOCKER OFF Office Visit [facility] Pulmonology [address] [place] [address] Fatou Garza MD [address] [place] [address] Lung mass (Primary Dx); Pleural effusion; Tobacco dependence Social History Tobacco Use Types Packs/Day Years Used Date Smoking Tobacco: Every Day Cigarettes 0.3 61.6 Started: 1964 Passive Smoke Exposure: Past Smokeless Tobacco: Never Tobacco Cessation:Ready to Q uit: Not Asked; Counseling Given: Not Answered Sex and Gender Information Value Date Recorded Sex Assigned at Not on file Legal Sex Male 9:21 AM KNOCKER OFF Gender Identity Not on file Sexual Orientation Not on file documented as of this encounter Last Filed Vital Signs Vital Sign Reading Time Taken Comments Blood Pressure 102/52 10/13/2024 2:01 PM KNOCKER OFF Pulse 112 10/13/2024 2:01 PM KNOCKER OFF Temperature - - Respiratory Rate - - Oxygen Saturation 97% 10/13/2024 2:01 PM KNOCKER OFF Inhaled Oxygen Concentration - - Weight 80.7 kg (178 lb) 10/13/2024 2:01 PM KNOCKER OFF Height 185.4 cm (6' 1 ) 10/13/2024 2:01 PM KNOCKER OFF Body Mass Index 23.48 10/13/2024 2:01 PM KNOCKER OFF documented in this encounter Progress Notes * Fatou Garza MD - 10/13/2024 2:00 PM CST Images from the original note were not included. Pulmonary Clinic Consultation note History of presenting illness: Chief Complaint Patient presents with Consult Hilar lymphadenopathy Maxwell Morris is an 74 y.o. male referred for evaluation of mediastinal lymphadenopathy Patient has no prior pulmonary history of lung disease. Records from [facility] reviewed, from 09/29/24 mentioning shortness of breath, pleural effusion, but no details about history, withy CTA from 10/01/24 reporting no PE, moderate to largeleft pleural effusion, bulky mediastinal lymphadenopathy, compressive atelectasis LLL and lingula, suspecting left hilar mass, changes of possible mets to the rib, large left thyroid mass, also suspecting pleural metastasis. Problem started with back pain around July and went to the ER in August. Now he has pain on left back side. Patient complaints of: -shortness of breath at rest and with exertion, worsened about a month ago. Cannot lay down flat. -cough yes, on and off for long time, but worsened around July. Some sputum production, clear. -wheezes yes -respiratory allergies some, mowing the yard, not on meds. No prior history of cancer. He has had problems swallowing, less appetite, he has lost 15 pounds over last 3 weeks. He had Eliquis prescribed suspected abnormal rhythm, but didn't take it. He saw Oncology doctor yesterday. He had MRI of the brain a week ago, told had mets and needed radiation. He had bone biopsy about a week ago, explained saw cancer cells. He had thoracentesis done at [facility] about 2 weeks from left lung and seems was negative for cancer. He will have another thoracentesis scheduled for tomorrow. He is on dexamethasone He also had PET scan done not available for me to review. 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 Pulm Family history: denies Using Oxygen : NO Smoking history: current 61 pack/year Current Inhalers: denies Occupational exposures: worked around aircraft, environmental pollution, coffee ayala dust. Candidate for CT screening for lung cancer: yes Family History: No family history on file. TOBACCO COUNSELING He was counseled to discontinue tobacco/nicotine use. 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 Yes Symptoms resulting from tobacco use: Emphysema Ready to quit? Maybe Estimated Quit Date: in several weeks Assist/Arrange: Resources Provided: Smoking Cessation class/referral: Yes Pharmacotherapy? no See orders (if applicable). Potential Side Effects discussed. Follow up visit scheduled. 2 minutes were spent face to face with patient discussing tobacco cessation Review of Systems Constitutional: Negative for chills, fever and weight loss. HENT: Negative for congestion, hearing loss and sore throat. Respiratory: Positive for cough and shortness of breath. Negative for stridor. Cardiovascular: Negative for chest pain, palpitations and leg swelling. Gastrointestinal: Negative for constipation, diarrhea, nausea and vomiting. Neurological: Negative for weakness and headaches. Psychiatric/Behavioral: The patient is not nervous/anxious. Previous Report(s) Reviewed: Chest Xray: Chest CT: PET scan: PFTS: Date FVC FEV1 Ratio BD response TLC DLCO Comment Echo: I personally looked at radiographic images on this patient and discussed findings with the patient. Tests and documents were reviewed by me. Prior external notes were reviewed by me. Examination: BP 102/52 Pulse (!) 112 Ht 6' 1 (1.854 m) Wt 80.7 kg (178 lb) SpO2 97% BMI 23.48 kg/m?? Physical Exam Vitals reviewed. HENT: Right Ear: Ear canal normal. Left Ear: Ear canal normal. Nose: No congestion or rhinorrhea. Mouth/Throat: Pharynx: No oropharyngeal exudate or posterior oropharyngeal erythema. Neck: Comments: Induration on left side of the neck Cardiovascular: Rate and Rhythm: Normal rate and regular rhythm. Pulmonary: Breath sounds: Examination of the left-upper field reveals decreased breath sounds. Examination of the left-middle field reveals decreased breath sounds. Examination of the left-lower field reveals decreased breath sounds. Decreased breath sounds present. No wheezing, rhonchi or rales. Abdominal: General: There is no distension. Musculoskeletal: General: No swelling. Skin: Findings: No erythema. Neurological: Mental Status: He is alert. Psychiatric: Mood and Affect: Mood normal. Behavior: Behavior normal. Thought Content: Thought content normal. Judgment: Judgment normal. IMPRESSION & RECOMMENDATIONS: ICD-10-CM ICD-9-CM 1. Lung mass R91.8 786.6 2. Pleural effusion J90 511.9 3. Tobacco dependence F17.200 305.1 Maxwell was seen today for consult. Diagnoses and all orders for this visit: Lung mass Pleural effusion Tobacco dependence Patient comes from outside referral but with partial medical records. He was already seen by Oncology and already had biopsy from a rib with cancer diagnosis and thoracentesis, with negative fluid and another thoracentesis scheduled for tomorrow, MRI brain showing mets and PET scan but I don't haveany of those records available. I only had initial workup done from CT chest on . I personally reviewed and interpreted chest images. CT chest noted with large neck mass with large pleural effusion and deviation of the trachea. I explained to patient and present that I don't recommend any invasive lung procedure at this time such as bronchoscopy as he has deviated trachea from neck mass which will make him very high risk for complications. I would recommend biopsy of that neck mass first or to look for other sites onPET scan not available at this time for me to comment on and this is so as effusion was negative for cancer. Only I would recommend CT guided lung biopsy if there is no other site for biopsy. He is currently following at [facility] for all this. I agree with therapeutic thoracentesis. Will be available in case anything else is needed from his Oncology doctor, but at this time I don't have information to indicate needs any other procedure form us. I spent 45 minutes gathering information from patient and since this was not available with the medical records sent for my clinic visit. Plan: -Please follow with your Oncology doctor next steps for your diagnosis and treatment and let us know in case there is something else that you need from us. -Please go for another fluid drainage of your left lung. Follow-up in Pulmonology clinic as needed. A typed after visit summary was given to the patient. Thank you so much for allowing me to participate in the care of this patient Fatou Jensen MD , Pulmonary Disease KER OFF documented in this encounter Miscellaneous Notes * Patient Instructions - Fatou Garza MD - 10/13/2024 2:44 PM CST Plan: -Please follow with your Oncology doctor next steps for your diagnosis and treatment and let us know in case there is something else that you need from us. -Please go for another fluid drainage of your left lung. Follow-up in Pulmonology clinic as needed. KER OFF documented in this encounter Plan of Treatment Not on file documented as of this encounter Visit Diagnoses Diagnosis Lung mass- Primary Swelling, mass, or lump in chest Pleural effusion Unspecified pleural effusion Tobacco dependence Tobacco use disorder documented in this encounter
--- OUTSIDE RECORDS SUMMARY | 2024-10-25 11:05 | XMS_ITS ---
Author Organization [facility] Address [address] [place] [address] Care Team Providers Care Briar Wood Sorter Name Role Phone Lázaro Hutchison Primary Care Provider Yasmeen NATHANAEL Shaikh Unavailable [phone] Results Component Value Reference Range Notes Urinalysis, Routine Reviewed date:02/23/2024 04:03:25 PM Interpretation: Performing Lab: Notes/Report: Urine-Color yellow Appearance slightly cloudy Glucose - Bilirubin - Ketones - Specific [place] 1.025 Occult Blood - pH 6.0 Urine Protein trace Urobilinogen,Semi-Qn - Nitrite, Urine - WBC Esterase trace Urinalysis Gross Exam - REASON FOR VISIT 6 mo w/ ua/pvr/ipss/psa Medications Medication SIG (Take, Route, Fr equency, Duration) Notes Start Date End Date Status Aspirin 81 Active Tadalafil Active Multivitamin Active Alfuzosin HCl ER Act mirna Alfuzosin HCl ER 10 MG TAKE 1 TABLET BY MOUTH EVERY DAY IMMEDIATELY AFTER THE SAME MEAL for 90 Active Vital Signs Temperature 97.9 degrees Fahrenheit 02/23/20 24 Blood pressure systolic 144 mm Hg 02/23/20 24 Blood pressure diastolic 68 mm Hg 024 Heart Rate 76 /min 02/23/2024 Height 73 in 02/23/2024 Weight 190 lbs 02/23/2024 BMI 25.06 kg/m2 02/23/2024 Height-cm 185.42 cm 02/23/2024 Weight-kg 86.18 kg 02/23/2024 Procedures Procedure Date Ordered Date Performed Result Body Sit e Bladder Scan 02/23/2024 02/23/2024 N/A Encounters Encounter Location Date Provider Diagnosis [facility], [facility] [address] [place] [address] 02/23/2024 NATHANAEL NATHAN Benign prostatic hyperplasia with lower urinary tract symptoms N40.1 ; ED (erectile dysfunction) N52.9 and Elevated PSA R97.20 Assessments Encounter Date Diagnosis (ICD Code) Assessment Notes Treatment Notes Treatment Clinical Notes Section Notes 02/23/2024 Benign prostatic hyperplasia with lower urinary [...] PVR -RTC or call sooner with concerns IBeverley LPN am scribing for, and in the presence of Dr. Nathanael Nathan. I, Nathanael Nathan MD attest that I personally performed the [...] PVR -RTC or call sooner with concerns I, Beverley , CHARTER DRIVER am scribing for, and in the presence [...] both accurate and complete. Plan Of Treatment Next Appt Details Follow Up: 1 Year, Reason: Provider Name:NATHANAEL Hodge, 02/28/2025 01:15:00 PM, [address] [place], [address], Progress Notes * Maxwell CHANDLER RDOB:1950 (73 yo M)Acc No.[id number]:02/23/2024 Progress Notes Patient:?Maxwell CHANDLER Provider:?NATHANAEL NATHAN MD :1950???Age:73 Y???Sex:Male Torsten e:02/23/2024 Address:[address] [place], [place] [id number] Pcp:Lázaro Hutchison Subjective: * Chief Complaints: * ???1. 6 mo w/ ua/pvr/ipss/ps a. * HPI: ???Migrated HPI:?The patient is a 73-yo male, h/o elevated PSA/ BPH LUTS, ED, previously followed by Dr. Richard. He was found to have aPSA of 19.2 on 07/31/21. He had a negative TRUS bx in Aug 2021.PSA 7.80on 12/23/22. He reports a newPSA of 6.5 in 05/2023,however, we do not have this result. He is taking?Alfuzosin. He was previously on Flomax, however, d/c'd due to retrograde ejaculation. He takes daily Cialis 5mg for BPH and Cialis 20mg PRN for ED. He is s/p lap cholecystectomy on 07/18/22 and carotid stent x2 at [facility] in Oct 2010. He is a current smoker. UA clear. PVR 52. IPSS 15. ?Here today at interval 6mo f/u w/ UA/PVR/IPSS andPSA of 6.69 on 02/20/24; IPPS of 13 QOL of 2. PVR 6ml. * ROS:?General / Constitutional:?Patient denies?change in appetite, fever, weakness.?Respiratory:?Patient denies?chronic cough, shortness of breath, sputum production.?Cardiovascular:?Patient denies?chest pain, chest pain with exertion, irregular heartbeat.?Gastrointestinal:?Patient denies?abdominal pain, diarrhea, rectal bleeding.?Genitourinary:?Comments?See HPI for details.? * Medical History:? * Medications:?Taking Aspirin 81 , Taking Tadalafil , Taking Multivitamin , Taking Alfuzosin HCl ER , Taking Alfuzosin HCl ER 10 MG Tablet Extended Release 24 Hour TAKE 1 TABLET BY MOUTH EVERY DAY IMMEDIATELY AFTER THE SAME MEAL Objective: * Vitals:?BP:144/68mm Hg, O2 S ource: RA, HR:76/min, Temp:97.9F, Wt:190lbs, Wt-k.18 kg, Ht: 73 in, Ht-cm: 185.42 cm, BMI:25.06Index, Body Surface Area: 2.1. * Examination: ???General Examination: ?General appearance:?alert, well-nourished and in no acute distress.?Head:?normocephalic, atraumatic.?Neck / thyroid:?supple.?Skin:?warm, dry, intact.?Lungs:?non labored breathing.?Chest:?symmetric expansion.?Abdomen:?soft, non distended, non tender.?Back:?no CVA tenderness.?Musculoskeletal:?moves all extremities well, normal strength.?Extremities:?no clubbing, cyanosis, or edema.?Neurologic:?grossly normal.?Psych:?normal mood and affect.? Assessment: * Assessment: 1.?Benign prostatic hyperpla annemarie with lower urinary tract symptoms - N40.1 (Primary)?2.?ED (erectile dysfunction) - N52.9?3.?Elevated PSA - R97.20? 73-yo male with BPH/LUTS, ED and elevated [...] PVR -RTC or call sooner with concerns IBeverley LPN am scribing for, and in the presence of Dr. Nathanael Nathan. I, Nathanael Nathan MD attest that I personally performed the services scribed in this documentation by Jeremie Jones LPN, and they are both accurate and complete. Plan: * Treatment: ? Value Reference Range ?Urine-Color yellow * ?Appearance slightly cloudy * ?Glucose - * ?Bilirubin - * ?Ketones - * ?Specific [place] 1.025 * ?Occult Blood - * ?pH 6.0 * ?Urine Protein trace * ?Urobilinogen,Semi-Qn - * ?Nitrite, Urine - * ?WBC Esterase trace * ?Urinalysis Gross Exam - ?Procedure: Bladder Scan (Performed Date - 02/23/2024)* Gabriela Carpio 02/23/2024 04:02:56 PM CDT > PVR 6 ml * Procedure Codes:?02714 URINA LYSIS, AUTO, W/O SCOPE, 36989 US URINE CAPACITY MEASURE, G2211 Complex e/m visit add on * Follow Up:?1 Year * Billing Information: * Visit Code:? 37359 Office Visit, Est Pt., Level 3. * Procedure Codes:? 57586 URINALYSIS, AUTO, W/O SCOPE. 77496 US URINE CAPACITY MEASURE. G2211 Complex e/m visit add on. * Sign off status: Completed true * Provider:?NATHANAEL NATHAN MD Date:?02/06 Generated for Printi ng/Falgg/eTransmitting on:?10/25/2024 11:04 AM PACKING ROOM INSPECTOR History and Physical Notes * Examination Category Sub-Category Detail Notes Category Not es General Examination General appearance: alert, w ell-nourished and in no acute distress Head: normocephalic, atrau matic Neck / thyroid: supple Chest: symmetric expansion Lungs: non labored breathin g Abdomen: soft, non distended, non tender Neurologic: grossly normal Skin: warm, dry, intact Extremities: no clubbing, cyanosi s, or edema Back: no CVA tenderness Musculoskeletal: moves all extremitie s well, normal strength Psych: normal mood and affe ct
--- OUTSIDE RECORDS SUMMARY | 2024-10-25 11:05 | XMS_ITS ---
Author Organization [facility] Address [address] [place] [address] Care Team Providers Care Water Treatment Plant Repairer Name Role Phone Lázaro Hutchison Primary Care Provider Yasmeen NATHANNATHANAEL Unavailable [phone] Allergies No Known Allergies Results Component Value Reference Range Notes Urinalysis, Routine Reviewed date:07/10/2023 08:12:46 AM Interpretation: Performing Lab: Notes/Report: Urine-Color yellow Appearance clear Glucose - Bilirubin - Ketones - Specific Mccleary 1.020 Occult Blood - pH 7.0 Urine Protein - Urobilinogen,Semi-Qn - Nitrite, Urine - WBC Esterase - REASON FOR VISIT elevated PSA Medications Medication SIG (Take, Route, Frequency, Duration) Notes Start Date End Date Status Alfuzosin HCl ER 10 MG 1 tablet immediat sarah after the same meal Orally Once a day for 30 days 07/09/2023 11/05/2023 Active Alfuzosin HCl ER Act mirna Multivitamin Active Tadalafil Active Aspirin 81 Active Social History Tobacco Use: Social History Observation Description Date Details (start date - stop date) Current Smoker NA - NA Tobacco Use/Smoking Question Answer Notes Tobacco use: current smoker How many cigarettes a day do you smoke? 07-28 Problems Problem Type SNOMED Code ICD Code Onset Dates Problem Status W/U Status Risk Notes Problem ED (erectile dysfunction) (N52.9) Active confirmed Problem Elevated PSA (031433689) Elevated PSA (R97.20) Active confirmed Vital Signs Blood pressure systolic 146 mm Hg 07/09/20 23 Blood pressure diastolic 62 mm Hg 023 Heart Rate 92 /min 07/09/2023 Procedures Procedure Date Ordered Date Performed Result Body Sit e Bladder Scan 07/09/2023 07/09/2023 N/A Encounters Encounter Location Date Provider Diagnosis Josh Grissomy, Kaila [address] [place] [address] 07/09/2023 NATHANAEL NATHAN Benign prostatic hyperplasia with lower urinary tract symptoms N40.1 ; ED (erectile dysfunction) N52.9 and Elevated PSA R97.20 Assessments Encounter Date Diagnosis (ICD Code) Assessment Notes Treatment Notes Treatment Clinical Notes Section Notes 07/09/2023 Benign prostatic hyperplasia with lower urinary tract symptoms (ICD-10 - N40.1) 73-yo male with BPH/LUTS, ED and elevated PSA. For his BPH/LUTS, he will continue Alfuzosin and may take Cialis 5 mg daily. For his ED, he will continue Cialis 20 mg PRN. Continue PSA surveillance with PCP. RTC in 6 months with PSA and UA/PVR. RTC or call sooner with any concerns. The patient voices understanding and agrees with the plan. All of his questions were answered to his satisfaction. Plan: - Continue Alfuzosin. Refill sent to [facility] - Continue Cialis 5 mg daily as needed - Continue Cialis 20 mg as needed for ED - Continue PSA surveillance with PCP - RTC in 6 months with PSA, IPSS and UA/PVR - RTC or call sooner wtih any concerns IEstrellita, Yari, am scribing for, and in the presence of, Dr. Nathan. I, Dr. Nathanael Nathan, personally performed the services prescribed in this documentation, as scribed by Estrellita Houser, in my presence, and it is both accurate and complete. 07/09/2023 ED (erectile dysfunction) (ICD-10 - N52.9) 73-yo male with BPH/LUTS, ED and elevated PSA. For his BPH/LUTS, he will continue Alfuzosin and may take Cialis 5 mg daily. For his ED, he will continue Cialis 20 mg PRN. Continue PSA surveillance with PCP. RTC in 6 months with PSA and UA/PVR. RTC or call sooner with any concerns. The patient voices understanding and agrees with the plan. All of his questions were answered to his satisfaction. Plan: - Continue Alfuzosin. Refill sent to [facility] - Continue Cialis 5 mg daily as needed - Continue Cialis 20 mg as needed for ED - Continue PSA surveillance with PCP - RTC in 6 months with PSA, IPSS and UA/PVR - RTC or call sooner wtih any concerns IEstrellita Scribe am scribing for, and in the presence of, Dr. Nathan. I, Dr. Nathanael Nathan, personally performed the services prescribed in this documentation, as scribed by Estrellita Houser, in my presence, and it is both accurate and complete. 07/09/2023 Elevated PSA (ICD-10 - R97.20) 73-yo male with BPH/LUTS, ED and elevated PSA. For his BPH/LUTS, he will continue Alfuzosin and may take Cialis 5 mg daily. For his ED, he will continue Cialis 20 mg PRN. Continue PSA surveillance with PCP. RTC in 6 months with PSA and UA/PVR. RTC or call sooner with any concerns. The patient voices understanding and agrees with the plan. All of his questions were answered to his satisfaction. Plan: - Continue Alfuzosin. Refill sent to [facility] - Continue Cialis 5 mg daily as needed - Continue Cialis 20 mg as needed for ED - Continue PSA surveillance with PCP - RTC in 6 months with PSA, IPSS and UA/PVR - RTC or call sooner wtih any concerns IEstrellita Scribe, am scribing for, and in the presence of, Dr. Nathan. I, Dr. Nathanael Nathan, personally performed the services prescribed in this documentation, as scribed by Estrellita Houser, in my presence, and it is both accurate and complete. Plan Of Treatment Medication Medication Name Sig Start Date Stop Date Notes Alfuzosin HCl ER 10 MG 1 tablet immediat sarah after the same meal Orally Once a day for 30 days 07/09/2023 11/05/2023 Next Appt Details Follow Up: 6 Months, Reason: Provider Name:NATHANAEL Hodge, 02/28/2025 01:15:00 PM, [address] [place], [address], Progress Notes * Jesse CHANDLEROB:1950 ( 73 yo M)Acc No.[id number]:07/09/2023 Progress Notes Patient:?Maxwell CHANDLER Provider:?NATHANAEL NATHAN MD :1950???Age:73 Y???Sex:Male Torsten e:07/09/2023 Address:[address] [place], [place] [id number] Pcp:Lázaro Hutchison Subjective: * Chief Complaints: * ???1. elevated PSA. * HPI: ???Migrated HPI:? The patient is a 73-yo male, referred by Dr. Richard for h/o elevated PSA. He was found to have a PSA of 19.2 on 07/31/21. He had a negative TRUS bx in Aug 2021. PSA 7.80 on 12/23/22. He reports a new PSA of 6.5 in May 2023, however, we do not have this lab. He has BPH/LUTS, on Alfuzosin. He was previously on Flomax, however, discontinued this due to retrograde ejaculation. He also has ED, on Cialis. He notes he has improved urinary stream when he takes Cialis 20 mg, therefore he cut them into 5 mg and took that daily and had great improvement in urination. He is s/p lap cholecystectomy on 07/18/22 and carotid stent x2 at [facility] in Oct 2010. He is a current smoker. UA clear. PVR 52. IPSS 15. * ROS:?General / Constitutional:?Patient denies?chills, fever, weight loss, good appetite.?ENT:?Patient denies?nasal congestionrhinorrhea or epistaxis.?Respiratory:?Patient denies?chronic cough, hemoptysis.?Cardiovascular:?Patient denies?substernal chest pain or palpitations, dyspnea with exertion.?Gastrointestinal:?Patient denies?constipation, rectal bleeding, weight loss, abdominal pain.?Hematology:?Patient denies?easy bruising, bleeding problems.?Genitourinary:?Patient denies?Documented in HPI.?Musculoskeletal:?Patient denies?arthritis / arthralgia, joint stiffness or swelling or redness.?Neurologic:?Patient denies?seizures, headache, difficulty speaking.?Psychiatric:?Patient denies?depressed mood, suicidal thoughts.? * Medical History:?Benign pros tatic hyperplasia, ED. * Surgical History:?Carotid st ent x 2 2010, cholecystectomy 2021. * Hospitalization/Major Diagno stic Procedure:?surgery . * Family History:?Non-Contribu tory.? * Social History:?Tobacco Use:?Tobacco Use/Smoking?Tobacco use:?current smoker,?How many cigarettes a day do you smoke??11-.? * Medications:?Taking Aspirin 81 , Taking Tadalafil , Taking Multivitamin , Taking Alfuzosin HCl ER , Medication List reviewed and reconciled with the patient * Allergies:?N.K.D.A. Objective: * Vitals:?BP:146/62mm Hg, HR:9 2/min. * Examination: ???General Examination: ?General appearance:?alert, pleasant, well-nourished and in no acute distress.?Head:?normocephalic, atraumatic.?Eyes:?conjunctiva clear, normal.?Neck / thyroid:?Neck is supple, no palpable cervical lymphadenopathy.?Skin:?with no suspicious skin lesions, normal skin turgor.?Heart:?regular rate and rhythm without murmurs, gallops, clicks or rubs.?Lungs:?clear to auscultation bilaterally.?Abdomen:?soft, nontender with normoactive bowel sounds in all four quadrants, No palpable organomegaly. No peritoneal signs. No shifting dullness..?Musculoskeletal:?No clubbing, cyanosis, or edema. No calf tenderness. Free range of motion in all extremities..?Neurologic:?No focal deficits, muscle strength 5/5 in all extremities..?Psych:?cooperative with exam.? Assessment: * Assessment: 1.?Benign prostatic hyperpla annemarie with lower urinary tract symptoms - N40.1 (Primary)?2.?ED (erectile dysfunction) - N52.9?3.?Elevated PSA - R97.20? 73-yo male with BPH/LUTS, ED and elevated PSA. For his BPH/LUTS, he will continue Alfuzosin and may take Cialis 5 mg daily. For his ED, he will continue Cialis 20 mg PRN. Continue PSA surveillance with PCP. RTC in 6 months with PSA and UA/PVR. RTC or call sooner with any concerns. The patient voices understanding and agrees with the plan. All of his questions were answered to his satisfaction. Plan: - Continue Alfuzosin. Refill sent to [facility] in [place] - Continue Cialis 5 mg daily as needed - Continue Cialis 20 mg as needed for ED - Continue PSA surveillance with PCP - RTC in 6 months with PSA, IPSS and UA/PVR - RTC or call sooner wtih any concerns IEstrellita Scribe, am scribing for, and in the presence of, Dr. Nathan. I, Dr. Nathanael Nathan, personally performed the services prescribed in this documentation, as scribed by Estrellita Houser, in my presence, and it is both accurate and complete. Plan: * Treatment: ? Value Reference Range ?Urine-Color yellow * ?Appearance clear * ?Glucose - * ?Bilirubin - * ?Ketones - * ?Specific Mccleary 1.020 * ?Occult Blood - * ?pH 7.0 * ?Urine Protein - * ?Urobilinogen,Semi-Qn - * ?Nitrite, Urine - * ?WBC Esterase - ?Procedure: Bladder Scan (Performed Date - 07/09/2023)* Beverley Eldridge 07/09/2023 03:5 9:04 PM > 52ml PVR * Procedure Codes:?87849 URINA LYSIS, AUTO, W/O SCOPE, 21629 US URINE CAPACITY MEASURE * Follow Up:?6 Months * Billing Information: * Visit Code:? 95915 Office Visit, New Pt., Level 4. * Procedure Codes:? 52623 URINALYSIS, AUTO, W/O SCOPE. 98695 US URINE CAPACITY MEASURE. * TORIAL ACCOUNT MANAGER Sign off status: Completed true * Provider:?NATHANAEL NATHAN MD Date:?09/2022 Generated for Printi ng/Faxing/eTransmitting on:?10/25/2024 11:04 AM JANITORIAL ACCOUNT MANAGER History and Physical Notes * Examination Category Sub-Category Detail Notes Category Not es General Examination General appearance: alert, p leasant, well-nourished and in no acute distress Head: normocephalic, atrau matic Eyes: conjunctiva clear, n ormal Neck / thyroid: Neck is supple, no p alpable cervical lymphadenopathy Heart: regular rate and rhy thm without murmurs, gallops, clicks or rubs Lungs: clear to auscultatio n bilaterally Abdomen: soft, nontender with normoactive bowel sounds in all four quadrants, No palpable organomegaly. No peritoneal signs. No shifting dullness. Neurologic: No focal deficits, m uscle strength 5/5 in all extremities. Skin: with no suspicious s kin lesions, normal skin turgor Musculoskeletal: No clubbing, cyanosi s, or edema. No calf tenderness. Free range of motion in all extremities. Psych: cooperative with jazmine mary
--- NOTE | 2024-10-25 11:16 | PM.CONSULT ---
Providers/Reason For Consult Consulting Physician/Specialty*: Dr. 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 He has a tumor pushing on his esophagus causing dysphagia. He has extreme difficulty even with thin liquids. Attempting liquids by mouth often results and if he was coughing. He was scheduled for placement of PEG tube on Friday of this week. However he was found to be extremely weak and tachycardic in the infusion center today and therefore was admitted to the hospital. He reports a significant cough. Denies any abdominal pain. Reports weakness Review of Systems General: Reports: 10 or more systems reviewed and unremarkable except in HPI and below Medications/Allergies Home Medications ?Medication ?Instructions ?Recorded ?Confirmed ?Last Taken ?Type cholecalciferol (vitamin D3) 50 50 mcg PO DAILY 07/16/21 10/26/24 10/18/24 History mcg (2,000 unit) capsule aspirin 325 mg tablet 81 mg PO QAM 07/31/21 10/26/24 10/18/24 History Held on 10/19/24. Instructions: Resume on 10/21/24. multivitamin 1 tab PO QAM 07/31/21 10/26/24 10/18/24 History alfuzosin 10 mg tablet,extended 10 mg PO DAILY 07/17/22 10/26/24 10/18/24 History release 24 hr (Uroxatral) tadalafil 20 mg tablet (Cialis) 20 mg PO DAILY PRN sexual activity 07/17/22 10/26/24 10/18/24 History acetaminophen 500 mg tablet 1,000 mg PO Q6H PRN Pain 10/05/24 10/26/24 10/18/24 History (Tylenol Extra Strength) dexamethasone 4 mg tablet 4 mg PO TID #30 tabs 10/12/24 10/26/24 10/18/24 Rx lorazepam 1 mg tablet (Ativan) 1 mg PO TID PRN anxiety/ nausea 10/14/24 10/26/24 10/25/24 Rx #30 tabs ondansetron 8 mg disintegrating 8 mg PO Q8H nausea #30 tabs 10/14/24 10/26/24 10/18/24 Rx tablet docusate sodium 100 mg capsule 100 mg PO BID #14 caps 10/19/24 10/26/24 10/18/24 Rx (Colace) hydrocodone 7.5 mg-acetaminophen 15 ml PO Q6H PRN pain #400 mL 10/19/24 10/26/24 10/26/24 Rx 325 mg/15 mL oral solution Portable oxygen concentrator and #1 ea 10/21/24 10/26/24 Unknown Rx supplies lidocaine-prilocaine 2.5 %-2.5 % 1 applic topical .COMPLEX #30 grams 10/25/24 10/26/24 10/18/24 Rx topical cream Allergies Allergy/AdvReac Type Severity Reaction Status Date / Time No Known Allergies Allergy Verified 10/25/24 09:00 Current Medications Generic Name Dose Route Start Last Admin Trade Name Freq PRN Reason Stop Dose Admin Hydrocodone Bitart/Acetaminophen 15 ml 10/25/24 12:39 10/26/24 05:02 Hydrocodone-Apap 7.5-325 Mg/15 Ml Udc PO 15 ml Q6H PRN Administration pain Albuterol/Ipratropium 3 ml 10/26/24 02:00 10/26/24 08:52 Ipratropium-Albuterol 3 Ml Neb INHALATION 3 ml Q6H.RESP ROHITH Administration Aspirin 81 mg 10/26/24 06:30 10/26/24 06:32 Aspirin 81 Mg Ec Tablet PO Not Given QAM ROHITH Budesonide 0.5 mg 10/26/24 08:00 10/26/24 08:53 Budesonide 0.5 Mg/2 Ml Neb INHALATION 0.5 mg BID.RESPIRATORY ROHITH Administration Docusate Sodium 100 mg 10/25/24 18:00 10/26/24 09:13 Docusate Sodium 100 Mg Capsule PO 100 mg BID ROHITH Administration Hydrocortisone Sodium Succinate 100 mg 10/25/24 12:45 10/26/24 06:18 Hydrocortisone 100 Mg/2 Ml Sdv IVP 100 mg Q6H ROHITH Administration Amiodarone HCl/Dextrose 360 mg in 200 mls @ 0 mls/hr 10/25/24 13:01 10/26/24 08:54 Nexterone IV 0.5 mg/min .Q0M ROHITH 16.67 mls/hr Administration Protocol Per Protocol Piperacillin Sod/Tazobactam 50 mls @ 12.5 mls/hr 10/25/24 13:15 10/26/24 09:15 Sod 3.375 gm/ Sodium Chloride IV Infused Q8H ROHITH Infusion Protocol Linezolid 600 mg in 300 mls @ 300 mls/hr 10/25/24 13:15 10/26/24 01:30 Zyvox Premix IV Infused Q12H ROHITH Infusion Protocol Lorazepam 1 mg 10/25/24 12:39 10/25/24 22:26 Lorazepam 1 Mg Tablet PO 1 mg TID PRN Administration anxiety/ nausea Morphine Sulfate 2 mg 10/25/24 20:46 10/26/24 02:19 Morphine 4 Mg/Ml Sdv 1 Ml IVP 2 mg Q4H PRN Administration SEVERE PAIN Nicotine 1 patch 10/25/24 14:05 10/26/24 09:13 Nicotine 7 Mg Patch TRANSDERMA 1 patch DAILY ROHITH Administration Pantoprazole Sodium 40 mg 10/25/24 12:45 10/25/24 13:44 Pantoprazole 40 Mg Sdv IVP 40 mg Q24H ROHITH Administration PFSH Acute PFSH: Medical History Skin lesion LOCAL EXCISION Elevated PSA Surgical History Hx laparoscopic cholecystectomy 07/18/22 Status post carotid surgery 2 STENTS AT [facility] IN 10/2010 Family History Mother Healthy adult Father , AT AGE 42 Automobile accident Social History Smoking and tobacco/nicotine status: light tobacco/nicotine user cigarettes [ Other cigarette details: 3 cigarettes daily] Alcohol intake: never Substance/Drug Use: never Marital status: Current occupational status: retired Vitals/I&O/Wt Last Vital Signs Temp 97.4 F L 10/26/24 04:28 Pulse 134 H 10/26/24 09:15 Resp 20 H 10/26/24 08:54 BP 131/70 10/26/24 08:30 Pulse Ox 94 10/26/24 08:54 O2 Del Method Nasal Cannula 10/26/24 08:54 O2 Flow Rate 6 10/26/24 08:54 10/25/24 10/26/24 10/26/24 22:59 06:59 14:59 Intake Total 998.869 / 1098.869 562.132 / 1661.001 143.868 / 143.868 Output Total 300 / 300 150 / 450 Balance 698.869 / 798.869 412.132 / 1211.001 143.868 / 143.868 Weight last 48 hrs Weight 174 lb 8 oz Weight 168 lb 3.403 oz Physical Exam Narrative: General : Patient is well developed , no acute distress, oriented x3 Head : Normal cephalic, a-traumatic. Ears : Pinnae and external canal are normal. Hearing is normal. Eyes : PERRLA, Sclera and injection are normal. No conjunctival discharge. Nose : Mucous membranes are without erythema. Throat : buccal mucosa is normal, gums are without significant recession or hypertrophy. Lungs : Equal chest rise bilaterally, no use of accessory muscles, trachea is midline. Cor : Rate and rhythm are normal. Abdomen : Soft, ND, NT, no g/r/m Extremities : No edema, no cyanosis or clubbing, dorsalis pedis pulses are present bilaterally, non-tender to palpation of calves. Upper extremities are normal bilaterally. Back : non-tender to palpation, no CVA tenderness. Neuro : CN II - XII intact, Upper and lower extremities have equal and full strength Data 10/26/24 03:47 10/26/24 03:47 Micro: Microbiology 10/25/24 13:59 Blood Culture - Preliminary Blood SPECIMEN COLLECTED 10/25/24 13:54 Blood Culture - Preliminary Blood SPECIMEN COLLECTED A&P Assessment and plan (1) Small cell lung cancer, overlapping sites of left lung: (2) Dysphagia: (3) Tachycardia: (4) Hypotension: Plan Patient received an incentive spirometer with teaching Place Dobbhoff tube and begin trickle feeds with Jevity at 10 cc/h Medical management per hospitalist As soon as the patient is medically stable we will proceed with PEG tube placement The risks and benefits of the procedure, including bleeding, infection, intestinal perforation requiring surgery, missed lesion were explained to the patient. The patient is understanding of the risks and wishes to proceed. PDMP PDMP Reviewed: Not Reviewed Coding Level of Care Code 76448 Diagnoses Small cell lung cancer, overlapping sites of left lung C34.82 Dysphagia R13.10 Tachycardia R00.0 Hypotension I95.9
--- NOTE | 2024-10-25 12:35 | XR_ITS ---
WS: [id number] Exam: XR chest 1V portable [id number] Date/Time of Exam: 10/25/2024 12:19 PM Reason For Exam: dyspnea, hypoxia Comparison 10/19/2024. Reaccumulation of large left-sided pleural effusion noted with complete white out of the LEFT pleural cavity. The RIGHT lung is fully expanded. Soft tissue chest wall mass seen in the upper RIGHT lung zone. RIGHT subclavian Mediport ends in the lower one third of the SVC. XR/XR chest 1V portable [id number] IMPRESSION: 1. Complete whiteout of the LEFT pleural cavity most likely secondary to extens mirna pleural effusion. No change since previous study. 2. The RIGHT lung is fully expanded. Soft tissue mass visualized over the RIGHT upper lung zone most likely represents a chest wall metastatic lesion. 3. Right-sided Chemo-Port in satisfactory location.
--- NOTE | 2024-10-25 12:38 | ECG_ITS ---
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 Measurements Intervals [place] Rate: 136 P: 228 OR: 138 QRS: 63 QRSD: 90 T: -10 QT: 268 QTc: 404 Interpretive Statements ATRIAL FIBRILLATION POSSIBLE RIGHT VENTRICULAR CONDUCTION DELAY [RSR (QR) IN V1/V2] MODERATE T-WAVE ABNORMALITY, CONSIDER INFERIOR ISCHEMIA [-0.1+ mV T-WAVE IN II/aVF] Compared to ECG 08/27/2024 21:41:30 T-wave abnormality now present Possible ischemia now present Ectopic atrial rhythm no longer present Incomplete right bundle-branch block no longer present Electronically Signed On 10-25-2024 20:28:09 FLAME CUTTING MACHINE OPERATOR by Maryuri Fuentes M.D. [email or web address]
--- NOTE | 2024-10-25 13:15 | PM.HP ---
Providers/Chief Complaint Admitting Physician: Martin Zelaya Primary Care Provider: Chace Barrera MD Chief Complaint: Hypotention History of Present Illness referred for hospitalization from oncology clinic where he came for routine assessment, however, has been weaker recently, has not been able to keep anything down due to tracheal mass, found to be dehydrated, has not been able to take his medications and about 3 days, having dark orange urine, cough productive of thick phlegm, and overall weak, sleeping during the day, with hypotension, blood pressure 79/48, new oxygen requirement of 4 L. She was recently treated with thoracentesis on 10/14 with removal of 1 L of pleural fluid. Additionally plans have been underway for feeding tube to be placed by Dr. Cheng on Friday. Review of Systems Const: Reports: change in appetite and fatigue; Denies: fever(s) or chills Resp: Reports: productive cough; Denies: dyspnea, change in phlegm color or hemoptysis GI: Reports: dysphagia; Denies: abdominal pain, nausea, vomiting, diarrhea, constipation, hematochezia or melena : Reports: other (orange/dark urine); Denies: flank pain, difficulty urinating, urinary frequency or hematuria Musc: Denies: back pain, joint swelling or joint redness Skin/Breast: Denies: rash or new lesions Neuro: Denies: headache(s) or confusion Endo: Denies: polyuria or polydipsia Medications/Allergies Home Medications ?Medication ?Instructions ?Recorded ?Confirmed ?Last Taken ?Type cholecalciferol (vitamin D3) 50 50 mcg PO DAILY 07/16/21 10/25/24 10/18/24 History mcg (2,000 unit) capsule aspirin 325 mg tablet 81 mg PO QAM 07/31/21 10/25/24 10/18/24 History Held on 10/19/24. Instructions: Resume on 10/21/24. multivitamin 1 tab PO QAM 07/31/21 10/25/24 10/18/24 History alfuzosin 10 mg tablet,extended 10 mg PO DAILY 07/17/22 10/25/24 10/18/24 History release 24 hr (Uroxatral) tadalafil 20 mg tablet (Cialis) 20 mg PO DAILY PRN sexual activity 07/17/22 10/25/24 10/18/24 History acetaminophen 500 mg tablet 1,000 mg PO Q6H PRN Pain 10/05/24 10/25/24 10/18/24 History (Tylenol Extra Strength) dexamethasone 4 mg tablet 4 mg PO TID #30 tabs 10/12/24 10/25/24 10/18/24 Rx lorazepam 1 mg tablet (Ativan) 1 mg PO TID PRN anxiety/ nausea 10/14/24 10/25/24 10/18/24 Rx #30 tabs ondansetron 8 mg disintegrating 8 mg PO Q8H nausea #30 tabs 10/14/24 10/25/24 10/18/24 Rx tablet docusate sodium 100 mg capsule 100 mg PO BID #14 caps 10/19/24 10/25/24 10/18/24 Rx (Colace) hydrocodone 7.5 mg-acetaminophen 15 ml PO Q6H PRN pain #400 mL 10/19/24 10/25/24 10/18/24 Rx 325 mg/15 mL oral solution Portable oxygen concentrator and #1 ea 10/21/24 10/25/24 Unknown Rx supplies lidocaine-prilocaine 2.5 %-2.5 % 1 applic topical .COMPLEX #30 grams 10/25/24 10/25/24 10/18/24 Rx topical cream Allergies Allergy/AdvReac Type Severity Reaction Status Date / Time No Known Allergies Allergy Verified 10/25/24 09:00 PFSH Acute PFSH: Medical History Skin lesion LOCAL EXCISION Elevated PSA Surgical History Hx laparoscopic cholecystectomy 07/18/22 Status post carotid surgery 2 STENTS AT [facility] IN 10/2010 Family History Mother Healthy adult Father , AT AGE 42 Automobile accident Social History Smoking and tobacco/nicotine status: light tobacco/nicotine user cigarettes [ Other cigarette details: 3 cigarettes daily] Alcohol intake: never Substance/Drug Use: never Marital status: Current occupational status: retired Physical Exam Narrative: Accompanied by his . Const: COMMON NORMALS: patient oriented x3 and alert GENERAL APPEARANCE: cooperative ORIENTATION/CONSCIOUSNESS: Yes awake HENMT: COMMON NORMALS: oropharynx normal Neck/C-Spine: COMMON NORMALS: no JVD Resp: COMMON NORMALS: normal respiratory effort and clear to auscultation bilaterally AUSCULTATION: diminished lung sounds on the left Cardio: COMMON NORMALS: no JVD, regular rhythm, S1 normal heart sound present, S2 normal heart sound present and No murmurs present (Cardio) RATE: tachycardic RHYTHM: abnormal rhythm (Irregular narrow complex) HEART SOUNDS: S1 normal heart sound present and S2 normal heart sound present GI: COMMON NORMALS: Normal to inspection, nondistended, normoactive bowel sounds present, Soft to palpation and non-tender PALPATION: Yes Soft to palpation Extremity: COMMON NORMALS: no joint enlargement GENERAL: Yes edema (2+) Neuro: COMMON NORMALS: patient oriented x3 and moves all extremities SENSORIUM/ORIENTATION: Yes alert Skin: COMMON NORMALS: no rashes or lesions noted GENERAL SKIN EXAM: no rashes or lesions noted A&P Assessment and plan (1) Hypotension: Hypotensive at oncology clinic, 79/48 for discussion with oncology provider, was given banana bag, prescription with his has not been able to keep down Any of his medications over the last 2-3 days. Has not been able to take his steroids, previously on Decadron 3 times daily. Currently blood pressure slightly better after banana bag, however, with fluctuation. Discussed possible adrenal sufficiency after unable to take steroids, discussed when will give IV steroids with hydrocortisone. Discussed leukocytosis 21,000, also noted irregular tachycardia, appears to be in A-fib with RVR. Will treat tachycardia. Reviewed potassium, check magnesium, TSH. Troponin EKG series. Reviewed vitals, CBC, CMP, prior PET/CT, oncology note, discussed with oncology provider. With dehydration, received banana bag, will give albumin as well, hold off continued IV fluids due to large pleural effusion. Requested chest x-ray. Reviewed, without pneumothorax, without mediastinal shift. With possible infection, pneumonia with new leukocytosis cough productive of thick sputum, discussed treatment with empiric antibiotics for now, will give Zosyn, linezolid, monitor for risk of cytopenia, continue Donnie syndrome, C. difficile. Levophed added to maintain MAP over 65. Check Tdap. Monitor and intensive care unit. Extensive metastatic disease noted on PET scan. Per discussion of goals of care in case of cardiopulmonary arrest per discussion with him and his he would not want CPR. (2) Dehydration: Received hydration with banana bag, will give a bag of albumin. Assess G-tube. Monitor for risk of fluid overload with noted large pleural effusion. Recent thoracentesis. Noted hyponatremia, sodium 150. Follow-up sodium. Check TSH. Repeat chemistry in the morning. (3) Leukocytosis: High leukocytosis, 21, with productive cough with thick phlegm, COVID sputum culture if possible. Blood culture requested, obtain UA. Rocephin. Better coverage for now for possible sepsis with leukocytosis 21,000, tachycardia 140 although is in A-fib with RVR. Afebrile. (4) Tachycardia: Irregular tachycardia, appears to be in A-fib with RVR, twelve-lead EKG requested, troponin series requested, with partial cardiac block, hypotension, not a candidate for calcium channel, beta-reese, digoxin, amiodarone drip started. Reviewed potassium. Check magnesium, TSH. Monitor on telemetry. Appears to be in new atrial fibrillation, assess troponin EKG series. Once heart rate improves consider echocardiogram. Plan Metastatic small cell neuroendocrine carcinoma, metastatic to multiple sites, including both lungs, lymph nodes with tracheal compression, large thyroid mass, suspected malignancy, suspected malignant pleural effusion, with pleural involvement, pancreatic head involvement, cecal involvement, multiple brain lesions, liver lesion, right adrenal mass. Is being set up for palliative radiation. Oncology have held off on treatment as she has been too weak so far. Arrangements have been underway for placement of PEG tube by surgery on Friday. With severe dysphagia with tracheal/esophageal compression with metastatic disease, switch to clear liquid diet for now with boost breeze. Zofran as needed. Smoking: Smoking a small amount, continue to encourage cessation. She is agreeable for nicotine patch. Requested. PDMP PDMP Reviewed: Not Reviewed Attestations Medical Necessity Statement*: Admission over 2 midnights anticipated for assessment and management of hypotension, dehydration, inability to tolerate oral intake, hypernatremia, possible pneumonia, possible sepsis, with severe leukocytosis, and gentleman with underlying widely metastatic small cell lung cancer. Coding Level of Care Code Critical Care >/= 30 minutes Critical care time (in minutes): 40 The high probability of a clinically significant, sudden or life threatening deterioration, as referenced in this documentation, required my full and direct attention, intervention and personal management. The critical care time shown is in addition to time spent performing any reported separately billable procedures and includes the following: [x] Data and vital sign review and interpretation [x] Patient assessment, examination and intervention [x] Medication orders and management [x] Patient/Family updates as able [x] Care Coordination and Documentation. Diagnoses Hypotension I95.9 Dehydration E86.0 Leukocytosis D72.829 Tachycardia R00.0
[2024-10-25] MEDS: amiodarone 150 MG/100 ML PREMIX 400 MG IV (13:35)
[2024-10-25] MEDS: albumin 25 G/100 ML BAG 60 G IV ×2 (13:41→17:34)
[2024-10-25] MEDS: linezolid premix 600 MG/300 ML PREMIX 300 MG IV (13:44)
[2024-10-25] MEDS: pantoprazole 40 mg SDV IVP (13:44)
[2024-10-25] MEDS: piperacillin-tazobactam 3.375 GM in sodium chloride 0.9% (plus) 50 ML IV ×2 (13:44→20:38)
[2024-10-25] MEDS: enoxaparin 40 mg/0.4 mL Syringe SUBCUT (13:44)
[2024-10-25] MEDS: hydrocortisone 100 mg/2 mL SDV IVP ×2 (13:44→18:59)
--- NOTE | 2024-10-25 14:10 | PC.NURSE ---
Patient was brought to ICU via wheelchair. Tachy with heart rate in 150's, blood pressure WNL and axillary temperature 95.2. Mirima hugger applied and temperature recheck was 98.1.
[2024-10-25 14:32] LABS: Lactic Sepsis W/Reflex 3.6 mmol/L (0.5-2.2); Sodium 151 mmol/L (136-145); Troponin(5th) Baseline 65 ng/L (0-15)
[2024-10-25 14:43] LABS: Creatine Phosphokinase 126 U/L (39-308); Magnesium 2.8 mg/dL (1.7-2.3); Thyroid Stimulating Hormone 0.07 uIU/mL (0.27-4.20)
[2024-10-25 15:51] LABS: Reflex Lactate Order REFLEX LACTIC ORDERD
[2024-10-25 16:12] LABS: Free T4 Free Thyroxine 1.05 ng/dL (0.82-1.77); T3 Free 1.6 PG/ML (2.0-4.4)
[2024-10-25 17:01] LABS: Troponin 5 2HR 66.57 ng/L (0-15); Troponin 5 2HR Delta 1.57 ABS# (0-10)
--- NOTE | 2024-10-25 17:20 | XRR_ITS ---
PROCEDURE INFORMATION: Exam: XR Chest Exam date and time: 10/25/2024 5:41 PM Age: 74 years old Clinical indication: Device placement; Other: Feeding tube; Prior surgery; Surgery date: 6+ months; Surgery type: Port; Additional info: Feeding tube placement TECHNIQUE: Imaging protocol: Radiologic exam of the chest. Views: 1 view. COMPARISON: 1. CR XR chest 1V portable [id number] 10/25/2024 12:[address] angio chest PE protcl [id number] 09/28/2024 3:14 PM FINDINGS: Tubes, catheters and devices: Enteric tube with tip of the lower mediastinum consider advancement approximately 10 cm. Accessed right MediPort with tip at the SVC. Lungs: Redemonstrated large pleural effusion with complete whiteout of the left lung field, similar to prior. Pleural spaces: See Lungs finding. Heart/Mediastinum: Unremarkable. No cardiomegaly. Bones/joints: Unremarkable. XR/XR chest 1V portable [id number] IMPRESSION: 1. Enteric tube with tip of the lower mediastinum consider advancement approximately 10 cm. 2. Grossly stable pulmonary exam.
[2024-10-25 17:31] LABS: Bilirubin Urine 2+ (Negative); Blood Urine 3+ (Negative); Glucose Urine UA Negative (Normal); Ketones Urine Trace (Negative); Leukocyte Esterase Urine 1+ (Negative); Nitrate Urine Positive (Negative); Protein Urine 2+ (Negative); Specific Gravity, Urine 1.024 (1.005-1.030); Urine Appearance Turbid (CLEAR)
[2024-10-25] MEDS: sodium chloride 0.9% 250 ML IV (17:34)
[2024-10-25] MEDS: docusate sodium 100 mg Capsule PO (17:35)
[2024-10-25] MEDS: nicotine 7 mg Patch 1 PATCH TRANSDERMA (17:35)
[2024-10-25 17:38] LABS: Add Urine Microscopic? YES; Bacteria Urine None Seen /hpf; Hyaline Casts Urine 26.47 /lpf; RBC Urine >100 /hpf (0-2); Squamous Epithelial Cell Urine 0-5 /hpf (0-5)
[2024-10-25 18:11] LABS: Urine Color Orange (Yellow)
[2024-10-25 18:12] LABS: UA Slide Review UA Slide Review Perf
[2024-10-25 18:13] LABS: Amorphous Sediment Urine TRACE /hpf
[2024-10-25 18:14] LABS: Add Urine Culture? Yes; Mucus Urine 2+ /hpf
[2024-10-25 18:23] LABS: Lactic Acid level (Lactate) 2.8 mmol/L (0.5-2.2)
--- NOTE | 2024-10-25 18:28 | ECG_ITS ---
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 Measurements Intervals [place] Rate: 86 P: 0 MA: 0 QRS: 62 QRSD: 90 T: 29 QT: 369 QTc: 441 Interpretive Statements ATRIAL FIBRILLATION LOW QRS VOLTAGE IN PRECORDIAL LEADS [QRS DEFLECTION < 1.0 mV IN CHEST LEADS] ABNORMAL RHYTHM ECG Compared to ECG 10/25/2024 14:14:59 Low QRS voltage now present Sinus tachycardia no longer present T-wave abnormality no longer present Possible ischemia no longer present Electronically Signed On 10-25-2024 20:29:37 [employer] SAL[employer] by Maryuri Fuentes M.D. [email or web address]
--- NOTE | 2024-10-25 18:55 | PC.NURSE ---
NG tube advanced per cxr report.
--- NOTE | 2024-10-25 19:28 | XRR_ITS ---
PROCEDURE INFORMATION: Exam: XR Chest Exam date and time: 10/25/2024 7:33 PM Age: 74 years old Clinical indication: Device placement; Other: Feeding tube; Prior surgery; Surgery date: 6+ months; Surgery type: Port; Additional info: Confirm ng placement TECHNIQUE: Imaging protocol: Radiologic exam of the chest. Views: 1 view. COMPARISON: CR (CHEST, ) 10/25/2024 5:41 PM FINDINGS: Tubes, catheters and devices: Enteric tube with tip just below the lower esophageal junction of the left upper quadrant. Query side port at the lower esophageal junction. Accessed right MediPort with tip at the SVC. Lungs: Redemonstrated large pleural effusion with complete whiteout of the left lung field, similar to prior. Pleural spaces: See Lungs finding. Heart/Mediastinum: Mediastinum not well evaluated. Bones/joints: Stable. XR/XR chest 1V portable [id number] IMPRESSION: 1. Enteric tube with tip just below the lower esophageal junction projecting at the left upper quadrant likely within the stomach. Query side port at the lower esophageal junction. Recommend additional advancement of 10 cm. 2. Grossly stable pulmonary exam.
--- NOTE | 2024-10-25 20:49 | PC.NURSE ---
Physician Notification: Called Dr. Neal @2044 to notify of chest xray completed and 7/10 Generalized pain. New order, okay to use Dobhoff.
[2024-10-25] MEDS: morphine 4 mg/mL SDV 1 mL 2 MG IVP (20:59)
[2024-10-25] MEDS: LORazepam 1 mg Tablet PO (22:26)
[2024-10-25] MEDS: HYDROcodone-APAP 7.5-325 mg/15 mL UDC PO (22:26)
[2024-10-26] VITALS (43 sets, daily range): BP systolic 66–133; BP diastolic 33–97; PULSE 0–157; RESP 0–41; TEMP 36.3; O2SAT 91–98
[2024-10-26] MEDS: hydrocortisone 100 mg/2 mL SDV IVP ×3 (00:20→12:52)
[2024-10-26] MEDS: linezolid premix 600 MG/300 ML PREMIX 300 MG IV ×2 (00:20→12:56)
[2024-10-26] MEDS: morphine 4 mg/mL SDV 1 mL 2 MG IVP (02:19)
[2024-10-26] MEDS: ipratropium-albuterol 3 mL Neb INHALATION ×2 (02:23→08:52)
[2024-10-26 04:06] LABS: Basophils # 0.1 10^3/uL (0.0-0.1); Basophils % 0.3 %; Eosinophils # 0.1 10^3/uL (0.0-0.8); Eosinophils % 0.5 %; Hematocrit 38.9 % (37-53); Lymphocytes # 0.4 10^3/uL (0.8-4.8); Lymphocytes % 2.1 %; Mean Corpuscular HGB Conc 30.6 g/dL (30-55); Mean Corpuscular Hemoglobin 30.1 pg (27-33); Mean Corpuscular Volume 98.2 fl (82-101); Mean Platelet Volume 10.7 fL (7.4-10.4); Monocytes # 0.8 10^3/uL (0.2-0.9); Monocytes % 4.5 %; Neutrophils # 16.14 10^3/uL (1.8-7.7); Neutrophils % 90.4 %; Nucleated Red Blood Cells % 0 %; Platelet Count 162 10^3/cmm (157-399); Red Blood Count 3.96 10^6/uL (3.85-5.65); Red Cell Distribution Width 13.9 % (12.1-15.1); White Blood Count 17.86 10^3/uL (3.29-11.43)
[2024-10-26 04:35] LABS: Alanine Aminotransferase 42 U/L (0-41); Albumin Level 3.5 g/dL (3.5-5.2); Alkaline Phosphatase 121 U/L (40-130); Anion Gap 23.2 (5-19); Aspartate Amino Transferase 40 U/L (0-40); Blood Urea Nitrogen 65 mg/dL (8-23); Calcium 9.3 mg/dL (8.5-10.5); Carbon Dioxide 20 mmol/L (22-29); Chloride 110 mmol/L (98-107); Globulin 2.5 g/dL (1.3-4.6); Glucose 215 mg/dL (65-115); Osmolality Calculated 333 mOsm/kg (285-295); Potassium 4.2 mmol/L (3.5-5.1); Sodium 149 mmol/L (136-145); Total Bilirubin 0.8 mg/dL (0.15-1.2)
[2024-10-26] MEDS: HYDROcodone-APAP 7.5-325 mg/15 mL UDC PO (05:02)
[2024-10-26] MEDS: aspirin 325 mg Tablet 81 MG PO (05:03)
[2024-10-26] MEDS: piperacillin-tazobactam 3.375 GM in sodium chloride 0.9% (plus) 50 ML IV ×2 (05:13→13:00)
[2024-10-26] MEDS: budesonide 0.5 mg/2 mL Neb INHALATION (08:53)
--- NOTE | 2024-10-26 09:05 | PC.NURSE ---
Patient tachycardic, complaining of SOB. VS currently HR 152, BP 96/68, RR 14, 6L NC o2. Lungs coarse and wet upon auscultation. Notified Dr. Mello of patients condition, gave verbal orders for CPAP and he would notify cardiology.
[2024-10-26] MEDS: nicotine 7 mg Patch 1 PATCH TRANSDERMA (09:13)
[2024-10-26] MEDS: docusate sodium 100 mg Capsule PO (09:13)
--- NOTE | 2024-10-26 09:16 | PC.NURSE ---
Dr. Ambrocio Cardiology and Dr. Piedra bedside discussing patients plan of care. Possible thoracentesis for patient later. CT that was ordered on patient currently being pushed back until patient is more stable, per Dr. Zelaya.
--- NOTE | 2024-10-26 09:21 | P.PN_ITS ---
Subjective 2 Subjective: Dobbhoff was successfully placed and patient is receiving trickle tube feeds with Jevity at 10 cc/h. Patient had a pretty rough night with tachycardia and difficulty breathing Vitals/I&O/Wt Last Vital Signs Temp 97.4 F L 10/26/24 04:28 Pulse 134 H 10/26/24 09:15 Resp 20 H 10/26/24 08:54 BP 131/70 10/26/24 08:30 Pulse Ox 94 10/26/24 08:54 O2 Del Method Nasal Cannula 10/26/24 08:54 O2 Flow Rate 6 10/26/24 08:54 10/25/24 10/26/24 10/26/24 22:59 06:59 14:59 Intake Total 998.869 / 1098.869 562.132 / 1661.001 143.868 / 143.868 Output Total 300 / 300 150 / 450 Balance 698.869 / 798.869 412.132 / 1211.001 143.868 / 143.868 Weight last 48 hrs Weight 174 lb 8 oz Weight 168 lb 3.403 oz Physical Exam 2 Narrative: General: Moderately labored breathing with weakness and confusion. He is not answering questions right now Abdomen: Soft, nontender, nondistended Data 10/26/24 03:47 10/26/24 03:47 Micro: Microbiology 10/25/24 13:59 Blood Culture - Preliminary Blood SPECIMEN COLLECTED 10/25/24 13:54 Blood Culture - Preliminary Blood SPECIMEN COLLECTED A&P Assessment and plan (1) Small cell lung cancer, overlapping sites of left lung: (2) Dysphagia: (3) Tachycardia: (4) Hypotension: Plan Incentive spirometer use 10 times per hour while awake Continue tube feeds with Dobbhoff tube - Jevity at 10 cc/h. Will slowly increase volume Dietary consult Medical management per hospitalist As soon as the patient is medically stable we will proceed with PEG tube placement The risks and benefits of the procedure, including bleeding, infection, intestinal perforation requiring surgery, missed lesion were explained to the patient. The patient is understanding of the risks and wishes to proceed. PDMP PDMP Reviewed: Not Reviewed Attestations 2 Medical Necessity Statement*: Per primary Coding Level of Care Code 55065 Diagnoses Small cell lung cancer, overlapping sites of left lung C34.82 Dysphagia R13.10 Tachycardia R00.0 Hypotension I95.9
--- NOTE | 2024-10-26 11:10 | US_ITS ---
WS: [id number] ULTRASOUND-GUIDED THORACENTESIS CLINICAL INFORMATION: 1-1.5L thoracentesis PROCEDURE: Informed consent: The risks, benefits, and alternatives of the procedure were discussed with the patient. Verbal and written consent was obtained. Timeout: A timeout was performed to confirm the correct patient, procedure, and site. Site: LEFT Preparation: A suitable skin site was identified. The patient was prepped and draped in usual sterile fashion. Lidocaine 1% was used for local anesthesia. Catheter: 4 Arabic One-Step catheter. Fluid Volume: 1500 ml Color: Serous bloody Complications: None. US/ thoracentesis [id number] IMPRESSION: 1. Uncomplicated ultrasound-guided LEFT chest thoracentesis. Removal of 1500 c c 2. Unremarkable post thoracentesis radiograph
--- NOTE | 2024-10-26 12:06 | PM.CONSULT ---
Providers/Reason For Consult Attending Physician: Martin Zelaya Primary Care Provider: Chace Barrera MD History of Present Illness History of Present Illness Maxwell Morris is a 74 year old male Medications/Allergies Home Medications ?Medication ?Instructions ?Recorded ?Confirmed ?Last Taken ?Type cholecalciferol (vitamin D3) 50 50 mcg PO DAILY 07/16/21 10/26/24 10/18/24 History mcg (2,000 unit) capsule aspirin 325 mg tablet 81 mg PO QAM 07/31/21 10/26/24 10/18/24 History Held on 10/19/24. Instructions: Resume on 10/21/24. multivitamin 1 tab PO QAM 07/31/21 10/26/24 10/18/24 History alfuzosin 10 mg tablet,extended 10 mg PO DAILY 07/17/22 10/26/24 10/18/24 History release 24 hr (Uroxatral) tadalafil 20 mg tablet (Cialis) 20 mg PO DAILY PRN sexual activity 07/17/22 10/26/24 10/18/24 History acetaminophen 500 mg tablet 1,000 mg PO Q6H PRN Pain 10/05/24 10/26/24 10/18/24 History (Tylenol Extra Strength) dexamethasone 4 mg tablet 4 mg PO TID #30 tabs 10/12/24 10/26/24 10/18/24 Rx lorazepam 1 mg tablet (Ativan) 1 mg PO TID PRN anxiety/ nausea 10/14/24 10/26/24 10/25/24 Rx #30 tabs ondansetron 8 mg disintegrating 8 mg PO Q8H nausea #30 tabs 10/14/24 10/26/24 10/18/24 Rx tablet docusate sodium 100 mg capsule 100 mg PO BID #14 caps 10/19/24 10/26/24 10/18/24 Rx (Colace) hydrocodone 7.5 mg-acetaminophen 15 ml PO Q6H PRN pain #400 mL 10/19/24 10/26/24 10/26/24 Rx 325 mg/15 mL oral solution Portable oxygen concentrator and #1 ea 10/21/24 10/26/24 Unknown Rx supplies lidocaine-prilocaine 2.5 %-2.5 % 1 applic topical .COMPLEX #30 grams 10/25/24 10/26/24 10/18/24 Rx topical cream Allergies Allergy/AdvReac Type Severity Reaction Status Date / Time No Known Allergies Allergy Verified 10/25/24 09:00 Current Medications Generic Name Dose Route Start Last Admin Trade Name Freq PRN Reason Stop Dose Admin Hydrocodone Bitart/Acetaminophen 15 ml 10/25/24 12:39 10/26/24 05:02 Hydrocodone-Apap 7.5-325 Mg/15 Ml Udc PO 15 ml Q6H PRN Administration pain Albuterol/Ipratropium 3 ml 10/26/24 02:00 10/26/24 08:52 Ipratropium-Albuterol 3 Ml Neb INHALATION 3 ml Q6H.RESP ROHITH Administration Aspirin 81 mg 10/26/24 06:30 10/26/24 06:32 Aspirin 81 Mg Ec Tablet PO Not Given QAM ROHITH Budesonide 0.5 mg 10/26/24 08:00 10/26/24 08:53 Budesonide 0.5 Mg/2 Ml Neb INHALATION 0.5 mg BID.RESPIRATORY ROHITH Administration Docusate Sodium 100 mg 10/25/24 18:00 10/26/24 09:13 Docusate Sodium 100 Mg Capsule PO 100 mg BID ROHITH Administration Hydrocortisone Sodium Succinate 100 mg 10/25/24 12:45 10/26/24 06:18 Hydrocortisone 100 Mg/2 Ml Sdv IVP 100 mg Q6H ROHITH Administration Amiodarone HCl/Dextrose 360 mg in 200 mls @ 0 mls/hr 10/25/24 13:01 10/26/24 08:54 Nexterone IV 0.5 mg/min .Q0M ROHITH 16.67 mls/hr Administration Protocol Per Protocol Piperacillin Sod/Tazobactam 50 mls @ 12.5 mls/hr 10/25/24 13:15 10/26/24 09:15 Sod 3.375 gm/ Sodium Chloride IV Infused Q8H ROHITH Infusion Protocol Linezolid 600 mg in 300 mls @ 300 mls/hr 10/25/24 13:15 10/26/24 01:30 Zyvox Premix IV Infused Q12H ROHITH Infusion Protocol Lorazepam 1 mg 10/25/24 12:39 10/25/24 22:26 Lorazepam 1 Mg Tablet PO 1 mg TID PRN Administration anxiety/ nausea Morphine Sulfate 2 mg 10/25/24 20:46 10/26/24 02:19 Morphine 4 Mg/Ml Sdv 1 Ml IVP 2 mg Q4H PRN Administration SEVERE PAIN Nicotine 1 patch 10/25/24 14:05 10/26/24 09:13 Nicotine 7 Mg Patch TRANSDERMA 1 patch DAILY ROHITH Administration Pantoprazole Sodium 40 mg 10/25/24 12:45 10/25/24 13:44 Pantoprazole 40 Mg Sdv IVP 40 mg Q24H ROHITH Administration PFSH Acute PFSH: Medical History Skin lesion LOCAL EXCISION Elevated PSA Surgical History Hx laparoscopic cholecystectomy 07/18/22 Status post carotid surgery 2 STENTS AT [facility] IN 10/2010 Family History Mother Healthy adult Father , AT AGE 42 Automobile accident Social History Smoking and tobacco/nicotine status: light tobacco/nicotine user cigarettes [ Other cigarette details: 3 cigarettes daily] Alcohol intake: never Substance/Drug Use: never Marital status: Current occupational status: retired Vitals/I&O/Wt Last Vital Signs Temp 97.4 F L 10/26/24 04:28 Pulse 152 H 10/26/24 10:00 Resp 17 10/26/24 10:00 BP 107/71 10/26/24 10:00 Pulse Ox 92 10/26/24 10:00 O2 Del Method Nasal Cannula 10/26/24 08:54 O2 Flow Rate 6 10/26/24 08:54 10/25/24 10/26/24 10/26/24 22:59 06:59 14:59 Intake Total 998.869 / 1098.869 562.132 / 1661.001 143.868 / 143.868 Output Total 300 / 300 150 / 450 Balance 698.869 / 798.869 412.132 / 1211.001 143.868 / 143.868 Weight last 48 hrs Weight 174 lb 8 oz Weight 168 lb 3.403 oz Data 10/26/24 03:47 10/26/24 03:47 Micro: Microbiology 10/26/24 00:01 Gram Stain - Final Sputum - Expectorated Sputum 10/25/24 13:59 Blood Culture - Preliminary Blood SPECIMEN COLLECTED 10/25/24 13:54 Blood Culture - Preliminary Blood SPECIMEN COLLECTED A&P PDMP PDMP Reviewed: Not Reviewed Coding Level of Care Code Acute Code for Chg Fwd
--- NOTE | 2024-10-26 12:37 | PC.NURSE ---
When Dr. Ambrocio bedside this morning, he gave verbal orders for patient to receive 150mg bolus of amio if patient remained tachycardic in the 150's. Patient remains tachycardic. Order placed.
[2024-10-26] MEDS: amiodarone 150 MG/100 ML PREMIX 400 MG IV (12:50)
[2024-10-26] MEDS: pantoprazole 40 mg SDV IVP (12:53)
[2024-10-26 12:58] LABS: INR 1.33 (0.8-1.2)
--- NOTE | 2024-10-26 13:39 | XR_ITS ---
WS: [id number] CHEST XRAY TECHNIQUE: Portable chest. CLINICAL INFORMATION: thoracentesis COMPARISON: 10/25/2024 FINDINGS: Progressing wedge-shaped airspace infiltrate in the RIGHT upper lobe along the fissure. Post LEFT thoracentesis. Continued opacification of the LEFT hemithorax with slightly improved density overlying the LEFT upper lobe. 1500 cc removed. RIGHT central venous catheter is stable. Enteric tube with tip just below the diaphragm in proximal stomach. No other significant changes. XR/XR chest 1V portable [id number] IMPRESSION: 1. Progressing wedge-shaped airspace infiltrate in the RIGHT upper lobe along the fissure 2. Enteric tube with tip proximal stomach, advanced compared to previous. 3. Slightly improved opacification LEFT upper lobe after removal of 1500 cc. C ontinued opacification LEFT hemithorax. 4. No other significant changes.
[2024-10-26 14:05] LABS: Appearance, Pleural Fluid TURBID (CLEAR); Color, Pleural Fluid Red (Pale Yellow); Cyto Order Verification No Order; PATH Referal YES
[2024-10-26 14:16] LABS: Mononuclear %, Pleural Fluid 88 %; Polynuclear Cells, Pleural % 12 %
--- NOTE | 2024-10-26 15:42 | PC.NURSE ---
Multiple conversations with provider and family about patients condition decline. After a long conversation with family by Dr. Davidson, patients wants to transition to more comfort care measures and no resuscitation initiated if patients heart stops. Conversation witnessed by Juliet COOPER about wifes wants for the patient.
--- NOTE | 2024-10-26 16:38 | P.DES_ITS ---
Discharge Providers DDS Date of Admission: 10/25/24 10:52 Date Summary Completed: 10/26/24 Attending Provider at Admission: Martin Zelaya Time of : 16:35 Attending Provider at Discharge: Martin Zelaya Primary Care Provider: Chace Barrera MD DS Diagnoses Hospital Diagnoses (1) Small cell lung cancer, overlapping sites of left lung: (2) Dysphagia: (3) Tachycardia: (4) Hypotension: Reason for Visit Reason for Visit Hypotention Brief History: Pleasant 74-year-old gentleman referred for hospitalization from oncology clinic where he came for routine assessment, however, has been weaker recently, has not been able to keep anything down due to tracheal mass, found to be dehydrated, has not been able to take his medications and about 3 days, having dark orange urine, cough productive of thick phlegm, and overall weak, sleeping during the day, with hypotension, blood pressure 79/48, new oxygen requirement of 4 L. She was recently treated with thoracentesis on 10/14 with removal of 1 L of pleural fluid. Additionally plans have been underway for feeding tube to be placed by Dr. Cheng on Friday. Summary Date and Time of Date of : 10/26/24 Time of : 16:35 Summary Summary: His blood pressure showed some improvement after IV fluid infusion at the cancer center, he additionally was given a bolus of albumin, further assessed with NICOM found to be fluid responsive, additional bag of albumin and small 250 mL bolus of saline was given. Levophed was requested, but did not end up requiring pressor overnight. He has been very weak, recently with poor oral intake, significant functional decline, and in the last 2 to 3 days not able to eat or drink at all leading to dehydration and malnutrition. Consideration was given to PEG tube placement, but has not been in the condition go for the procedure. In the meantime Dobbhoff was placed and was started on some trophic feeds by surgery pending possible PEG tube placement later in the week in case he was able to show improvement. He was additionally found to be in new onset A-fib with RVR with right ventricular conduction delay on EKG, with soft blood pressure, was started on amiodarone drip. Potassium magnesium were assessed and were not low. With some bleeding metastatic lesions in the brain not a candidate for anticoagulation. IV antibiotic coverage was provided in case of possible pulmonary infection with leukocytosis, generalized weakness. Chest x- ray was obtained which showed complete whiteout of the left pleural cavity most likely secondary to extensive pleural effusion with right lung fully expanded. Blood and sputum cultures were obtained, urine culture obtained with UA suggestive of possible UTI. Without improvement in atrial fibrillation with RVR, with heart rhythm fluctuating between sinus rhythm in the 80s and A-fib with RVR in 140s-150s, consideration was given to additional measures including cardioversion, discussed with cardiology. However, has spontaneously been going between sinus rhythm and A-fib with RVR, with overall severity of his illness cardioversion not likely to be successful, and risks with initiation of other medications so he was given additional bolus of amiodarone. Additionally developed LUI, with creatinine rising up to 1.9. Thoracentesis arranged with 1.5 L of turbid/serous/red fluid removed with US guidance. He has not showing recovery, unfortunately continuing to grow weaker, has been unable to expel secretions, or maintain airway well, suspected possibly aspirating as well requ iring intermittent suctioning. As per goals of care without additional escalation of care, CPAP was considered, however, found likely to be more detrimental and contributing to discomfort, increasing risk of aspiration with tracheal mass compression as per discussion with him and his . Goals of care and CODE STATUS were revisited again, given his significantly weakened state, lack of recovery, his requesting that he was not be in discomfort, with comfort care being initiated arrangements were underway for a private room upstairs. He with his at his bedside at 1635. Additional Data Advance directives?: No Discharge Plan Discharge Patient Disposition: Condition: Prescriptions: No Action cholecalciferol (vitamin D3) 50 mcg (2,000 unit) capsule 50 mcg PO DAILY multivitamin Tablet 1 tab PO QAM aspirin 325 mg tablet 81 mg PO QAM dexamethasone 4 mg tablet 4 mg PO TID Qty: 30 0RF ondansetron 8 mg tablet,disintegrating 8 mg PO Q8H Qty: 30 0RF lorazepam [Ativan] 1 mg tablet 1 mg PO TID PRN (Reason: anxiety/ nausea) Qty: 30 3RF (DME) Portable oxygen concentrator and supplies See Rx Instructions .Route .MEDSUPPLY Qty: 1 0RF Rx Instructions: As directed lidocaine-prilocaine 2.5-2.5 % cream 1 applic topical .COMPLEX Qty: 30 2RF Rx Instructions: Apply quarter-size amount to port site 30 minutes prior to access; cover with cling wrap acetaminophen [Tylenol Extra Strength] 500 mg Tablet 1,000 mg PO Q6H PRN (Reason: Pain) alfuzosin [Uroxatral] 10 mg tablet extended release 24 hr 10 mg PO DAILY Rx Instructions: TAKE 1 TABLET BY MOUTH DAILY tadalafil [Cialis] 20 mg tablet 20 mg PO DAILY PRN (Reason: sexual activity) Rx Instructions: administer approximately 30min before sexual activity; NO NITROGLYCERIN! hydrocodone-acetaminophen 7.5-325 mg/15 mL solution 15 ml PO Q6H PRN (Reason: pain) Qty: 400 0RF docusate sodium [Colace] 100 mg capsule 100 mg PO BID Qty: 14 0RF Patient Instructions: Opioid Safety DS Attestations Time Spent in /Discharge Care*: greater than 30 min Quality - AMI: AMI present?: No Quality - Stroke: CVA present?: No Quality - VTE: VTE present?: No Coding Level of Care Code 49599 Total time (in minutes) for Discharge: 60 Diagnoses Small cell lung cancer, overlapping sites of left lung C34.82 Dysphagia R13.10 Tachycardia R00.0 Hypotension I95.9
--- NOTE | 2024-10-26 16:42 | PC.NURSE ---
Patient's heart rate dramatically slowed down, alerted family bedside in room. Patients heart stopped at 1635. This nurse ausculated and verified by another nurse. TOD 1635. Notified Dr. Zelaya.
--- NOTE | 2024-10-26 16:55 | PC.NURSE ---
Addendum entered by Di Phan RN 10/26/24 16:56: Awaiting saving site decision. Original Note: MTS notification made by Masood Stubbs MTS ruled patient out. Saving site candidate.
--- NOTE | 2024-10-26 17:16 | PC.NURSE ---
Released from saving site. Not a candidate
--- NOTE | 2024-10-26 21:57 | PC.RESP ---
tx not given, patient .
--- NOTE | 2024-10-26 22:32 | PC.NURSE ---
Home Patient left facility for Gerardo Coffman at [phone]. Patient clothing with home territory account representative.
== END 2024-10-26 21:58 | disposition expired | DRG 177 ==
PROVIDERS: Admitting Provider Internal Medicine; PCP Family Medicine; Referring Provider Family Medicine; Visit Provider Internal Medicine
DX: U07.1 COVID-19 (principal); I50.33 Acute on chronic diastolic (congestive) heart failure; J12.82 Pneumonia due to coronavirus disease 2019; J96.21 Acute and chronic respiratory failure with hypoxia; J15.9 Unspecified bacterial pneumonia; E46 Unspecified protein-calorie malnutrition; J44.0 Chronic obstructive pulmonary disease with (acute) lower respiratory infection; N17.9 Acute kidney failure, unspecified; Z68.23 Body mass index [BMI] 23.0-23.9, adult; I11.0 Hypertensive heart disease with heart failure; E11.40 Type 2 diabetes mellitus with diabetic neuropathy, unspecified; G30.9 Alzheimer's disease, unspecified; F02.80 Dementia in other diseases classified elsewhere, unspecified severity, without behavioral disturbance, psychotic disturbance, mood disturbance, and anxiety; Z99.81 Dependence on supplemental oxygen; I48.0 Paroxysmal atrial fibrillation; Z86.711 Personal history of pulmonary embolism; Z79.51 Long term (current) use of inhaled steroids; Z87.01 Personal history of pneumonia (recurrent); N31.9 Neuromuscular dysfunction of bladder, unspecified; Z96.0 Presence of urogenital implants; S80.12XA Contusion of left lower leg, initial encounter; X58.XXXA Exposure to other specified factors, initial encounter; Z87.891 Personal history of nicotine dependence; I25.10 Atherosclerotic heart disease of native coronary artery without angina pectoris; Z86.0100 Personal history of colon polyps, unspecified; E03.9 Hypothyroidism, unspecified; I25.2 Old myocardial infarction; Z79.84 Long term (current) use of oral hypoglycemic drugs; Z88.0 Allergy status to penicillin; Z88.2 Allergy status to sulfonamides; Z88.8 Allergy status to other drugs, medicaments and biological substances
CPT/HCPCS: 32555; 36415; 36591; 71045; 80053; 80503; 81001; 82550; 83605; 83735; 83986; 84295; 84439; 84443; 84481; 84484; 85025; 85610; 87040; 87070; 87075; 87086; 87205; 89050; 93005; 94640; 94664; 96372; A4222; J0283; J1650; J1720; J2020; J2270; J2470; J2543; J7050; J7626; P9046